=== PATIENT | female | born 1965 | race Caucasian/White ===

== ENCOUNTER 2023-10-25 13:28 | Emergency (ER) | payer MEDICARE, BC, SELFPAY ==
[2023-10-25 13:27] VITALS: BP 141/93; PULSE 106; RESP 21; TEMP 36.5; O2SAT 88; BMI 25.8
--- NOTE | 2023-10-25 13:48 | CT_ITS ---
FINAL REPORT TECHNIQUE: Thin section axial CT with contrast with multiplanar reconstruction CLINICAL HISTORY: trauma, critical injury suspected fall last night FINDINGS: Pulmonary vessels enhance in normal fashion without evidence of embolism. There is no evidence of aortic dissection or acute aortic injury. No pulmonary mass or infiltrate is present. There is mild dependent atelectasis. There is no evidence of pleural fluid collection. There is no pneumothorax. There is no significant pleural effusion. There is no significant pericardial effusion. No mediastinal or hilar adenopathy is present. No rib fracture is identified. IMPRESSION: No evidence of pulmonary embolism or aortic dissection. Reviewed, Interpreted and Dictated by Evert Gordillo MD Transcribed by Andreina Calderon Authenticated and [facility]
--- NOTE | 2023-10-25 13:48 | CT_ITS ---
FINAL REPORT TECHNIQUE: Axial images through the head was performed by computed tomography. Sagittal and coronal reformatted images were obtained and reviewed. This study was performed with techniques to keep radiation doses as low as reasonably achievable (ALARA). Individualized dose reduction techniques using automated exposure control or adjustment of mA and/or kV according to the patient's size were employed. CLINICAL HISTORY: trauma, critical injury suspected fall last night FINDINGS: No abnormal density is seen. Ventricles are normal. There is no hemorrhage. No mass effect is seen. Bone windows show no evidence of fracture. IMPRESSION: No acute findings Reviewed, Interpreted and Dictated by Evert Gordillo MD Transcribed by Andreina Calderon Authenticated and [facility]
--- NOTE | 2023-10-25 13:48 | CT_ITS ---
FINAL REPORT TECHNIQUE: Pre-and postcontrast images of the abdomen and pelvis were performed by computed tomography. Extensive 3-D reconstruction images were performed. A CTA was performed. This study was performed with techniques to keep radiation doses as low as reasonably achievable (ALARA). Individualized dose reduction techniques using automated exposure control or adjustment of mA and/or kV according to the patient''s size were employed. CLINICAL HISTORY: trauma, severe midline back pain fall last night FINDINGS: ABDOMEN/PELVIS: There is fatty infiltration of the liver. The remaining solid organs are intact. The gallbladder is normal. The appendix is normal. There is no evidence of free fluid. The uterus is normal for age. CTA: The abdominal aorta shows mild diffuse plaque disease. The renal and mesentery vessels are widely patent. The iliac vessels are widely patent. IMPRESSION: No acute findings. Reviewed, Interpreted and Dictated by Evert Gordillo MD Transcribed by Andreina Calderon Authenticated and [facility]
--- NOTE | 2023-10-25 13:48 | CT_ITS ---
FINAL REPORT TECHNIQUE: Axial images through the pelvis were performed by computed tomography. Reconstructed images were obtained and reviewed. This study was performed with techniques to keep radiation doses as low as reasonably achievable (ALARA). Individualized dose reduction techniques using automated exposure control or adjustment of mA and/or kV according to the patient's size were employed. CLINICAL HISTORY: trauma, critical injury suspected fall last night FINDINGS: There is no evidence of fracture or dislocation. There is a small bone island in the right sacrum and iliac bone. No obvious soft tissue hematoma is identified. IMPRESSION: No acute process Reviewed, Interpreted and Dictated by Evert Gordillo MD Transcribed by Andreina Calderon Authenticated and . [facility]
--- NOTE | 2023-10-25 13:48 | CT_ITS ---
FINAL REPORT TECHNIQUE: Thin section axial CT with sagittal reconstruction without contrast. This study was performed with techniques to keep radiation doses as low as reasonably achievable (ALARA). Individualized dose reduction techniques using automated exposure control or adjustment of mA and/or kV according to the patient's size were employed. CLINICAL HISTORY: trauma, critical injury suspected fall last night FINDINGS: No fracture is seen. Alignment is normal. There is moderate diffuse degenerative disc disease and facet arthropathy. IMPRESSION: Degenerative changes without fracture or malalignment. Reviewed, Interpreted and Dictated by Evert Gordillo MD Transcribed by Andreina Calderon Authenticated and [facility]
--- NOTE | 2023-10-25 13:50 | ED_ITS ---
Discharge Plan Disposition Patient Disposition: Home, Self-Care Prescriptions Prescriptions: New hydrocodone-acetaminophen 5-325 mg tablet 1 tab PO Q6H PRN (Reason: pain) 3 Days Qty: 12 0RF Referrals Follow up/Referrals: Damion Slaughter MD [Staff Physician] - See instructions Provider,MD Will [Primary Care Provider] - See instructions Activity Restrictions/Add. Instructions Additional Instructions/Restrictions: You have an anterior wedge compression fracture of your L1 vertebral body. This is less than 25% height loss and is focally where you are tender. I recommend that you follow-up closely with our pain specialist if you continue to have symptoms. Please return with any lower extremity weakness numbness or tingling loss of bowel or bladder continence or other concerns. Clinical Impressions Clinical Impression: Acute low back pain due to trauma, Fall, Transaminitis, Closed compression fracture of L1 vertebra Instructions Patient Instructions: DI for Low Back Pain Discharge ED Provider: Brain Flaherty General Adult HPI <Brain Flaherty MD - Last Filed: 10/25/23 14:46> General Chief complaint: Back Pain/Injury Stated complaint: Back pain Time Seen by Provider: 10/25/23 13:31 Mode of Arrival: EMS Source of Information: Patient and EMS Limitations: No Limitations Description of Symptoms (Recalled from ER Triage Doc. by RN): Pt c/o pain to mid-lower back after falling up the stairs around 0200. States she had a few drinks last night and remembers the fall History of Present Illness HPI narrative: Patient is a 50-year-old female with no pertinent past medical history who presents emergency department for evaluation of traumatic injury sustained in a fall. She states she had a few drinks last night when she was going up the stairs where she fell backwards approximately 2 steps onto her back resulting in significant pain. She was able to get herself to her bed, the surface that she fell and was dirt as she lives off the grid . Due to significant pain in her lower back she called 911 and presents here for continued evaluation. Denies anticoagulation or head pain. Last Tdap unknown. Related Data Previous Rx's Medication Instructions Recorded hydrocodone 5 mg-acetaminophen 325 1 tab PO Q6H PRN pain 3 days #12 10/25/23 mg tablet tabs Allergies Allergy/AdvReac Type Severity Reaction Status Date / Time tramadol AdvReac severe Verified 10/25/23 13:53 nausea with vomiting PFSH <Brain Flaherty MD - Last Filed: 10/25/23 14:46> PFSH Disclaimer: The information contained in this section may have been updated after the patient was seen, as this information can be updated by other users. Social History (Updated 10/25/23 @ 14:46 by Brain Flaherty MD) Smoking Status: Current every day smoker alcohol intake: former current occupational status: other Travel in the last 8 weeks: None <Brain Flaherty MD - Last Filed: 10/25/23 14:46> ROS Obtained: Yes Systems reviewed as appropriate & no additional complaints except as documented Physical Exam <Brain Flaherty MD - Last Filed: 10/25/23 14:46> General General appearance: alert and in no apparent distress Head Head exam: atraumatic and normocephalic Eye Eye exam: Present PERRL ENT ENT exam: Present mucous membranes moist Neck Neck exam: Present normal inspection Chest Chest inspection: Present normal inspection and symmetric chest wall rise Respiratory Respiratory exam: Present normal lung sounds bilaterally; Absent respiratory distress Cardiovascular Cardiovascular exam: Present regular rate and normal rhythm Abdominal Exam Abdominal exam: Present soft; Absent tenderness Extremities Exam Extremities exam: Present other (Abrasion left [place] that is hemostatic. 4-5 strength bilateral lower extremities producing severe pain in the lower back. Bounding dorsal pedal pulses bilaterally.) Back Exam Back exam: Present normal inspection and other (Severe tenderness lumbosacral spine) Neurological Exam Neurological exam: Present alert and CN II-XII intact Psychiatric Psychiatric exam: Present normal affect Skin Skin exam: Present warm and dry Medical Decision Making <Brain Flaherty MD - Last Filed: 10/25/23 14:46> Lei Inquiry Pt receiving controlled substance: No Vital Signs: 10/25/23 13:27 10/25/23 13:59 Temperature 97.7 F Temperature Source Oral Pulse Rate 109 H Pulse Rate [Right] 106 H Respiratory Rate 21 Blood Pressure 131/91 H Blood Pressure [Right Arm] 141/93 H Blood Pressure Mean [Right Arm] 109 Blood Pressure Source [Right Arm] Automatic Cuff 02 Sat by Pulse Oximetry 88 L 96 Oxygen Delivery Method Room Air Room Air Lab Data Lab Results 10/25/23 13:20: WBC 12.7 H, RBC 4.52, Hgb 16.4 H, Hct 49.5 H, MCV 109.6 H, MCH 36.3 H, MCHC 33.1, RDW 13.5, Plt Count 311, MPV 8.3, Neut % (Auto) 81.0 H, Lymph % (Auto) 13.8, Cata[place] % (Auto) 3.4, Eos % (Auto) 0.8, Baso % (Auto) 1.0, Neut # (Auto) 10.3 H, Lymph # (Auto) 1.7, [place]ata[place] # (Auto) 0.4, Eos # (Auto) 0.1, Baso # (Auto) 0.1 10/25/23 13:59: Sodium 139, Potassium 5.9 H, Chloride 109 H, Carbon Dioxide 21 L , Anion Gap 14.9, BUN 8, Creatinine 0.40 L, Estimated Creat Clear 198, Estimated GFR 164, Est GFR ( Amer) 198, Glucose 103 H, Calcium 8.0 L, Total Bilirubin 1.2, AST 127 H, ALT 86 H, Alkaline Phosphatase 78, Total Protein 8.2, Albumin 4.3, Globulin 3.9 H, Albumin/Globulin Ratio 1.1 10/25/23 14:48: Potassium 3.9 D 10/25/23 13:20 10/25/23 14:48 Orders (Tests/Meds): ED MEDICATIONS Discontinued Medications Generic Name Dose Route Start Last Admin Trade Name Freq PRN Reason Stop Dose Admin Acetaminophen 1,000 mg 10/25/23 13:48 10/25/23 14:02 Acetaminophen 1,000mg/100ml Vial IV 10/25/23 13:49 1,000 mg ONCE ONE Administration Iopamidol 100 ml 10/25/23 14:33 10/25/23 14:34 Iopamidol-370 (76%);100ml Bottle IV 10/25/23 14:34 100 ml ONCE ONE Administration Methocarbamol 1,000 mg 10/25/23 13:49 10/25/23 14:01 Methocarbamol 500mg Tablet PO 10/25/23 13:50 1,000 mg ONCE ONE Administration Morphine Sulfate 4 mg 10/25/23 13:48 10/25/23 14:02 Morphine 4mg/Ml Syringe IV 10/25/23 13:49 4 mg ONCE ONE Administration Sodium Chloride 10 ml 10/25/23 14:33 10/25/23 14:34 Sodium Chloride 0.9% 10ml Syr (Rad Only) IV 10/25/23 14:34 10 ml ONCE ONE Administration Sodium Chloride 50 ml 10/25/23 14:33 10/25/23 14:34 0.9 % Sodium Chloride 50 Ml Vial IV 10/25/23 14:34 50 ml ONCE ONE Administration ORDERS Category Date Time Status CT angio abdomen pelvis Stat Cat Scan 10/25/23 13:[address] angio chest - dissection Stat Cat Scan 10/25/23 13:[address] bony pelvis Stat Cat Scan 10/25/23 13:[address] cervical spine wo con Stat Cat Scan 10/25/23 13:[address] head/brain wo con Stat Cat Scan 10/25/23 13:48 Completed CBC w/Auto Diff [Complete Blood Count Auto Diff] Stat Lab 10/25/23 13:20 Completed CMP [Comprehensive Metabolic Panel] Stat Lab 10/25/23 13:59 Completed Potassium Stat Lab 10/25/23 14:48 Completed Medical Decision Narrative: In summary patient is a 58-year-old female past medical history described above who presents emergency department for evaluation of traumatic back pain. Patient is hemodynamically stable nontoxic-appearing arrival, appearing in severe pain. Differential includes vertebral fracture, intracranial hemorrhage, musculoskeletal strain, among others. Workup will be conducted with hematologic labs, CT trauma scans. Initial inventions include morphine, IV Tylenol, Robaxin. Initial workup reviewed by me, hematologic labs are nonactionable, there is hyperkalemia that is hemolyzed and will be repeated. No LING or critical electrolyte abnormality. Mildly elevated transaminases. CT imaging conducted and pending at time of transfer of care to the oncoming physician, Dr. Yun. <Radha Yun MD - Last Filed: 10/25/23 16:17> Vital Signs: 10/25/23 13:27 10/25/23 13:59 Temperature 97.7 F Temperature Source Oral Pulse Rate 109 H Pulse Rate [Right] 106 H Respiratory Rate 21 Blood Pressure 131/91 H Blood Pressure [Right Arm] 141/93 H Blood Pressure Mean [Right Arm] 109 Blood Pressure Source [Right Arm] Automatic Cuff 02 Sat by Pulse Oximetry 88 L 96 Oxygen Delivery Method Room Air Room Air Lab Data Lab results reviewed: Yes I reviewed the patient's lab results. Lab Results 10/25/23 13:20: WBC 12.7 H, RBC 4.52, Hgb 16.4 H, Hct 49.5 H, MCV 109.6 H, MCH 36.3 H, MCHC 33.1, RDW 13.5, Plt Count 311, MPV 8.3, Neut % (Auto) 81.0 H, Lymph % (Auto) 13.8, Cata[place] % (Auto) 3.4, Eos % (Auto) 0.8, Baso % (Auto) 1.0, Neut # (Auto) 10.3 H, Lymph # (Auto) 1.7, Cata[place] # (Auto) 0.4, Eos # (Auto) 0.1, Baso # (Auto) 0.1 10/25/23 13:59: Sodium 139, Potassium 5.9 H, Chloride 109 H, Carbon Dioxide 21 L , Anion Gap 14.9, BUN 8, Creatinine 0.40 L, Estimated Creat Clear 198, Estimated GFR 164, Est GFR ( Amer) 198, Glucose 103 H, Calcium 8.0 L, Total Bilirubin 1.2, AST 127 H, ALT 86 H, Alkaline Phosphatase 78, Total Protein 8.2, Albumin 4.3, Globulin 3.9 H, Albumin/Globulin Ratio 1.1 10/25/23 14:48: Potassium 3.9 D Orders (Tests/Meds): ED MEDICATIONS Discontinued Medications Generic Name Dose Route Start Last Admin Trade Name Freq PRN Reason Stop Dose Admin Acetaminophen 1,000 mg 10/25/23 13:48 10/25/23 14:02 Acetaminophen 1,000mg/100ml Vial IV 10/25/23 13:49 1,000 mg ONCE ONE Administration Iopamidol 100 ml 10/25/23 14:33 10/25/23 14:34 Iopamidol-370 (76%);100ml Bottle IV 10/25/23 14:34 100 ml ONCE ONE Administration Methocarbamol 1,000 mg 10/25/23 13:49 10/25/23 14:01 Methocarbamol 500mg Tablet PO 10/25/23 13:50 1,000 mg ONCE ONE Administration Morphine Sulfate 4 mg 10/25/23 13:48 10/25/23 14:02 Morphine 4mg/Ml Syringe IV 10/25/23 13:49 4 mg ONCE ONE Administration Sodium Chloride 10 ml 10/25/23 14:33 10/25/23 14:34 Sodium Chloride 0.9% 10ml Syr (Rad Only) IV 10/25/23 14:34 10 ml ONCE ONE Administration Sodium Chloride 50 ml 10/25/23 14:33 10/25/23 14:34 0.9 % Sodium Chloride 50 Ml Vial IV 10/25/23 14:34 50 ml ONCE ONE Administration ORDERS Category Date Time Status CT angio abdomen pelvis Stat Cat Scan 10/25/23 13:[address] angio chest - dissection Stat Cat Scan 10/25/23 13:[address] bony pelvis Stat Cat Scan 10/25/23 13:[address] cervical spine wo con Stat Cat Scan 10/25/23 13:[address] head/brain wo con Stat Cat Scan 10/25/23 13:48 Completed CBC w/Auto Diff [Complete Blood Count Auto Diff] Stat Lab 10/25/23 13:20 Completed CMP [Comprehensive Metabolic Panel] Stat Lab 10/25/23 13:59 Completed Potassium Stat Lab 10/25/23 14:48 Completed Medical Decision Narrative: In summary patient is a 58-year-old female past medical history described above who presents emergency department for evaluation of traumatic back pain. Patient is hemodynamically stable nontoxic-appearing arrival, appearing in severe pain. Differential includes vertebral fracture, intracranial hemorrhage, musculoskeletal strain, among others. Workup will be conducted with hematologic labs, CT trauma scans. Initial inventions include morphine, IV Tylenol, Robaxin. Initial workup reviewed by me, hematologic labs are nonactionable, there is hyperkalemia that is hemolyzed and will be repeated. No LING or critical electrolyte abnormality. Mildly elevated transaminases. CT imaging conducted and pending at time of transfer of care to the oncoming physician, Dr. Yun. Reassessment this is Dr. Yun took over from Dr. Flaherty at [address] imaging and on my personal interpretation there is an L1 anterior wedge compression fracture less than 25% this is focally where she is tender. The remainder of her scan does not show any acute traumatic abnormality. Radiology reads did not demonstrate any specific abnormalities however I discussed this with the patient that if she looks at the reads that there is clearly a L1 compression fracture on my personal interpretation. She will follow-up with Dr. Slaughter. She has no acute neurologic symptoms at the moment no lower extremity weakness no bowel or bladder incontinence saddle anesthesia etc. precautions have been emphasized pain medicine prescribed patient was discharged in a stable condition. Critical Care <Brain Flaherty MD - Last Filed: 10/25/23 14:46> Critical Care Time Critical Care Time: No <Radha Yun MD - Last Filed: 10/25/23 16:17> Critical Care Time Critical Care Time: Yes Attestation: On 10/25/23, the high probability of a clinically significant, sudden or life threatening deterioration of the following system(s) required my full and direct attention, intervention and personal management. The time I documented below is in addition to time spent performing reported procedures but includes the following listed in this critical care notation. Total Time Total Critical Care Time: 35
--- NOTE | 2023-10-25 13:54 | PC.NURSE ---
Called radiology to notify of trauma scans and MD is wanting to forgo waiting on labs.
--- NOTE | 2023-10-25 13:55 | PC.NURSE ---
Lab called stating the green top blood tube was hemolyzed, will attempt to collect it again.
[2023-10-25 13:56] LABS: Basophils # 0.1 K/mm3 (0-0.2); Eosinophils # 0.1 K/mm3 (0.0-0.4); Eosinophils % 0.8 % (0.1-12.0); Hematocrit 49.5 % (37.0-47.0); Hemoglobin 16.4 g/dL (12.2-16.2); Lymphocytes # 1.7 K/mm3 (0.7-4.5); Lymphocytes % 13.8 % (10-50); Mean Corpuscular HGB Conc 33.1 g/dL (31.8-35.4); Mean Corpuscular Hemoglobin 36.3 pg (27.0-31.2); Mean Corpuscular Volume 109.6 fl (81-99); Mean Platelet Volume 8.3 fl (7.4-10.4); Monocytes # 0.4 K/mm3 (0.1-1.0); Monocytes % 3.4 % (1.7-9.3); Neutrophils # 10.3 K/mm3 (1.8-7.8); Platelet Count 311 K/mm3 (142-424); Red Blood Count 4.52 M/mm3 (4.20-5.40); Red Cell Distribution Width 13.5 % (11.5-17.5); White Blood Count 12.7 K/mm3 (4.8-10.8)
[2023-10-25 13:59] VITALS: BP 131/91; PULSE 109; O2SAT 96
[2023-10-25] MEDS: METHOCARBAMOL 500MG TABLET 1000 MG PO (14:01)
[2023-10-25] MEDS: MORPHINE 4MG/ML SYRINGE 4 MG IV ×2 (14:02→17:17)
[2023-10-25] MEDS: ACETAMINOPHEN 1,000MG/100ML VIAL 1000 MG IV (14:02)
[2023-10-25 14:10] LABS: Chloride 109 mmol/L (98-107); Sodium 139 mmol/L (136-145)
[2023-10-25 14:12] LABS: Blood Urea Nitrogen 8 mg/dl (7-17); Creatinine Clearance Estimated 198 mL/min (50-200); Estimated Glomerular Filt Rate 164 ml/min (>60); GFR (African American) 198 ML/MIN (>60); Potassium 5.9 mmoL/L (3.5-5.1)
[2023-10-25 14:13] LABS: Alanine Aminotransferase 86 U/L (12-78); Albumin Level 4.3 g/dl (3.5-5.0); Albumin/Globulin Ratio 1.1 (1.1-1.8); Alkaline Phosphatase 78 U/L (38-126); Anion Gap 14.9 mEq/L (5-15); Aspartate Amino Transferase 127 U/L (14-36); Bilirubin,Total 1.2 mg/dl (0.2-1.3); Carbon Dioxide 21 mmol/L (22.0-30.0); Globulin 3.9 g/dL (1.3-3.2); Glucose 103 mg/dl (74-100); Total Protein,Serum 8.2 g/dl (6.3-8.2)
--- NOTE | 2023-10-25 14:21 | PC.NURSE ---
Pt gone to RAD via stretcher
[2023-10-25] MEDS: SODIUM CHLORIDE 0.9% 10ML SYR (RAD ONLY) 10 ML IV (14:34)
[2023-10-25] MEDS: 0.9 % SODIUM CHLORIDE 50 ML VIAL IV (14:34)
[2023-10-25] MEDS: IOPAMIDOL-370 (76%);100ML BOTTLE 100 ML IV (14:34)
[2023-10-25 15:05] LABS: Potassium 3.9 mmoL/L (3.5-5.1)
--- NOTE | 2023-10-25 16:15 | PC.NURSE ---
2nd set of blood cultures obtained, blue band placed to pt's right wrist.
--- NOTE | 2023-10-25 16:20 | PC.NURSE ---
pt ambulated to bathroom with walker with staff standby assistance, tolerated well
--- NOTE | 2023-10-25 17:01 | PC.NURSE ---
Attempted to d/c pt and she reports her will not be here until 7pm and she can't sit down comfortably to be d/c to lobby. States she is still nauseated and in pain. She also notes that she does not have a way to obtain her pain medication prescription today. Let MD know this and he gave verbal order for Morphine 4 mg IVP & Zofran 4 mg IVP. As well as Oxy IR 5mg PO at d/c.
[2023-10-25] MEDS: ONDANSETRON 4MG/2ML VIAL 4 MG IV (17:17)
[2023-10-25 18:22] VITALS: BP 105/75; PULSE 78; RESP 16; TEMP 36.7; O2SAT 98
--- NOTE | 2023-10-25 18:47 | PC.NURSE ---
Pt resting in bed. No needs voiced at this time. Call light within reach.
--- NOTE | 2023-10-25 19:37 | PC.NURSE ---
Patient states her is in route, he had a delay and will be here shortly. IV's removed, VS updated, pt provided drink.
[2023-10-25 19:44] VITALS: BP 151/95; PULSE 95; RESP 20; O2SAT 95
[2023-10-25] MEDS: HYDROCODONE/APAP 5/325 MG TABLET 1 TAB PO (20:10)
[2023-10-25] MEDS: ONDANSETRON 4MG ODT 4 MG SL (20:10)
--- NOTE | 2023-10-25 20:13 | PC.NURSE ---
Pt. c/o headache and nausea. Medicated for heaache and nausea.
== END 2023-10-25 20:45 | disposition home or self-care (01) ==
PROVIDERS: Emergency Medicine; Emergency Provider Student in an Organized Health Care Education/Training Program
DX: S32.010A Wedge compression fracture of first lumbar vertebra, initial encounter for closed fracture (principal); R74.01 Elevation of levels of liver transaminase levels; M54.50 Low back pain, unspecified; F17.210 Nicotine dependence, cigarettes, uncomplicated; W10.8XXA Fall (on) (from) other stairs and steps, initial encounter
CPT/HCPCS: 70450; 71275; 72125; 72192; 74174; 80053; 84132; 85025; 96374; 96375; 96376; 99285; J0131; J2270; J2405; Q9967

== ENCOUNTER 2023-11-03 08:35 | Outpatient (POV) | payer MEDICARE, BC, SELFPAY ==
--- NOTE | 2023-11-03 09:13 | A.OFFVIS_ITS ---
HPI Data of Consult Patient: new to practice Consult date: 11/03/23 Requesting Physician: Jamaica Barksdale APRN Consult Narrative Reason for consult: Low back pain, hip pain, right leg numbness History of present illness: Ms. Jara is a 58 year old female who presents today as a new patient. She is a ER referral. Today she rates her pain a 9 out of 10. Patient states the pain is throughout her low back with radiating symptoms to her hips and numbness down her right leg. Patient states this is all related to the fall that she had on the . Patient states that she ended up landing in and around her back and that she has had issues since. Patient states that she did go to the ER and they did do imaging where she was told that she had a compression fracture of L1. Patient states that they did give her IV morphine and other medications including a muscle relaxer and that it did not help however she is Dr. Paige. Patient describes the pain as a severe sharp shooting pain that does interfere with her ability perform activities of daily living such as cooking and cleaning. Patient states that the pain is constant. Patient was given [place] in the ER. Her Lei has been reviewed and is appropriate. CC: Jamaica Barksdale APRN [facility] Disclaimer: The information contained in this section may have been updated after the patient was seen, as this information can be updated by other users. Medical History (Updated 11/03/23 @ 10:46 by Jamaica Barksdale APRN) Panic attacks Post traumatic stress disorder (PTSD) Depression Anxiety Surgical History (Updated 11/03/23 @ 10:22 by Carlota Mendez RN) History of H/O repair of rotator cuff Family History (Updated 11/03/23 @ 10:23 by Carlota Mendez RN) Other Unknown family medical history Social History (Updated 10/25/23 @ 14:46 by Brain Flaherty MD) Smoking Status: Current every day smoker alcohol intake: former current occupational status: other Travel in the last 8 weeks: None Review of Systems Review of Systems Review of systems:: pertinent systems reviewed and negative unless documented below Review of systems (narrative): Review of Systems: General: No recent weight changes, no fever, no sleep disturbances Respiratory: No cough, no shortness of air, no recurring pulmonary infections Cardiovascular/peripheral vascular: No chest pain, no palpitations, no edema, no shortness of breath Gastrointestinal: No new onset incontinence, normal bowel movements reported Genitourinary: No new onset incontinence Musculoskeletal: Low back pain, hip pain, right leg numbness Psychiatric: [Normal mood/affect] Neurological: [Denies weakness in extremities], [denies balance issues] Meds Home Medications and Allergies Home Medications Medication Instructions Recorded Confirmed Type baclofen 5 mg tablet 5 mg PO TID #42 tabs 11/03/23 Rx hydrocodone 5 mg-acetaminophen 325 1 tab PO BID 3 days #60 tabs 11/03/23 Rx mg tablet lorazepam 1 mg tablet (Ativan) 0 mg PO BID PRN Anxiety 11/03/23 11/03/23 History prednisone 20 mg tablet 20 mg PO BID #14 tabs 11/03/23 Rx quetiapine 25 mg tablet (Seroquel) 0 mg PO HS sleep 11/03/23 11/03/23 History New Prescriptions to Start Prescriptions: baclofen Barksdale,Jamaica A hydrocodone-acetaminophen Barksdale,Jamaica A prednisone Barksdale,Jama[place] A Allergies Allergy/AdvReac Type Severity Reaction Status Date / Time acetaminophen [From Vicodin] AdvReac Verified 11/03/23 10:18 hydrocodone [From Vicodin] AdvReac Verified 11/03/23 10:18 tramadol AdvReac severe Verified 10/25/23 13:53 nausea with vomiting Objective Narrative: Physical Exam: General: Alert and oriented x3, no acute distress, pleasant and cooperative Lungs: Respirations even and unlabored, symmetrical chest expansion Eyes: PERRL Musculoskeletal: Flexion and extension of lumbar [spine] somewhat guarded secondary to pain, [antalgic gait noted] positive right leg raise Neurological: Speech clear, no gross sensory deficit Additional findings Additional findings: TECHNIQUE: Thin section axial CT with sagittal reconstruction without contrast. This study was performed with techniques to keep radiation doses as low as reasonably achievable (ALARA). Individualized dose reduction techniques using automated exposure control or adjustment of mA and/or kV according to the patient's size were employed. CLINICAL HISTORY: trauma, critical injury suspected fall last night FINDINGS: No fracture is seen. Alignment is normal. There is moderate diffuse degenerative disc disease and facet arthropathy. IMPRESSION: Degenerative changes without fracture or malalignment. Reviewed, Interpreted and Dictated by Evert Gordillo MD Transcribed by Andreina Calderon Authenticated and [facility] Assessment and Plan *Assessment and plan (1) Compression fracture: Status: Acute Category: Medical (2) Low back pain: Status: Acute Qualifiers: Chronicity: acute Back pain laterality: right Sciatica presence: without sciatica Qualified Code(s): M54.50 - Low back pain, unspecified Category: Medical Code(s): M54.50 - Low back pain, unspecified (3) Lumbar radiculopathy: Status: Acute Category: Medical Code(s): M54.16 - Radiculopathy, lumbar region (4) Right leg pain: Status: Acute Category: Medical Code(s): M79.604 - Pain in right leg (5) Hip pain: Status: Acute Qualifiers: Laterality: right Qualified Code(s): M25.551 - Pain in right hip Category: Medical Code(s): M25.559 - Pain in unspecified hip Plan Patient is experiencing significant pain throughout her low back with radiating pain to her hip and her right leg. Patient did have limited range of motion of her lumbar spine and tenderness to palpate. I have discussed with the patient that they did not do any lumbar imaging when she was in the ER and I will order x-ray with MRI without contrast to follow of her lumbar spine to confirm the compression fracture. Patient's abdominal CT did show on the actual imaging of the height loss of the L1 vertebral body portion however was not documented in the written report. I did discuss with the patient that she may be a beneficial candidate of a kyphoplasty however we will have to confirm that there is edema. I will also order the patient a DEXA scan to see if she does have osteoporosis. I will send in a 1 month supply of [place] 5 mg twice a day along with a 2-week supply of baclofen 5 mg 3 times daily and prednisone 20 mg twice daily. Patient was ordered a back brace to help as support and stabilization around her current L1 compression fracture. This was applied during today's visit. Patient will return to clinic after her imaging for evaluation and follow-up. We did give her a kyphoplasty brochure to read up on in the meantime. Patient is agreeable to this plan of care. Patient did have elevated blood pressure during today's visit and was counseled to follow-up with her primary care. Patient has been instructed to contact the clinic with any concerns before the next appointment. Dr. Slaughter has reviewed this note and agrees with this plan of care. This note was dictated using voice recognition software and make contain errors or omissions.
--- NOTE | 2023-11-03 09:55 | XR_ITS ---
FINAL REPORT TECHNIQUE: 5 views CLINICAL HISTORY: LOWER BACK PAIN COMPARISON: CT of the chest abdomen and pelvis 10/25/2023 FINDINGS: There is a moderate L1 compression fracture, that is slightly worse than that noted on the prior CT of 10/25/2023. There is no malalignment. Mild diffuse degenerative disc disease is present. IMPRESSION: Moderate L1 compression fracture, slightly worse than that noted on the prior CT of 10/25/2023. Reviewed, Interpreted and Dictated by Evert Gordillo MD Transcribed by Bessy Ayala Authenticated and . [facility]
[2023-11-03 11:16] VITALS: BP 165/105; PULSE 65; RESP 18; O2SAT 100; BMI 25.1
== END 2023-11-03 23:59 | disposition home or self-care (01) ==
PROVIDERS: Visit Provider Nurse Practitioner Family
DX: M54.50 Low back pain, unspecified (principal); M54.16 Radiculopathy, lumbar region; M79.604 Pain in right leg; M25.551 Pain in right hip; S32.019A Unspecified fracture of first lumbar vertebra, initial encounter for closed fracture
CPT/HCPCS: 72110; 99202; G0463

== ENCOUNTER 2023-11-18 17:20 | Outpatient (CLI) | payer MEDICARE, BC, SELFPAY ==
--- NOTE | 2023-11-18 17:23 | MR_ITS ---
FINAL REPORT TECHNIQUE: Multiplanar and multisequence imaging of the lumbar spine was obtained without contrast. CLINICAL HISTORY: LBP FINDINGS: There is normal alignment of the lumbar vertebral bodies. The spinal cord ends at the level of T12. There is normal signal intensity within the substance of the distal spinal cord. There is an L1 fracture with bone marrow edema and 50% loss of vertebral body height anteriorly. There is retropulsion of the fracture fragments resulting in 25% central canal stenosis. Remaining vertebral body heights are preserved. No acute paraspinal abnormality is identified. T12-L1: Mild to moderate canal stenosis related to fracture. No significant neuroforaminal narrowing. L1-2: There is no focal disc herniation, central canal stenosis or neuroforaminal narrowing. L2-3: Annular disc bulge with degenerative endplate changes and facet osteoarthropathy. There is no significant canal stenosis or right neuroforaminal narrowing. There is mild left neuroforaminal narrowing. L3-4: Annular disc bulge with degenerative endplate changes and facet osteoarthropathy. There is mild central canal stenosis and mild bilateral neuroforaminal narrowing. L4-5: Disc protrusion superimposed on annular disc bulge. There is mild central canal stenosis and mild left neuroforaminal narrowing. L5-S1: Annular disc bulge without significant central canal stenosis or neuroforaminal narrowing. IMPRESSION: L1 fracture with 50% loss of vertebral body height and canal stenosis related to retropulsion of bony fragments. Mild multilevel degenerative disease as above. Reviewed, Interpreted and Dictated by Meghan Maldonado MD Transcribed by Rosalind Guy Authenticated and [facility]
== END 2023-11-18 23:59 | disposition home or self-care (01) ==
LOC: RAD 17:21
PROVIDERS: Visit Provider Nurse Practitioner Family
DX: M54.17 Radiculopathy, lumbosacral region (principal); M54.50 Low back pain, unspecified
CPT/HCPCS: 72148

== ENCOUNTER 2023-12-01 08:37 | Outpatient (CLI) | payer MEDICARE, BC, SELFPAY ==
--- NOTE | 2023-12-01 08:42 | XR_ITS ---
FINAL REPORT TECHNIQUE: Bone densitometry calculations of the lumbar spine and left hip were obtained. CLINICAL HISTORY: SCREENING, FALL C/O BACK PAIN COMPARISON: None FINDINGS: Using L1-4, the bone mineral density of the spine is 1.058 g/cm2, corresponding to T-score of 0.1. Using the left hip, the bone mineral density of the femoral neck is 0.815 g/cm2, corresponding to a T-score of -0.3. NOTE: T-score: Standard deviation compared with peak bone mass of young adult mean. *Following the recommendations of the International Society of Bone densitometry, classification of hip BMD is based on the lower of two T-scores; total hip or femoral neck. IMPRESSION: Normal bone mineral density of the lumbar spine and hip. Reviewed, Interpreted and Dictated by Evert Gordillo MD Transcribed by Bessy Ayala Authenticated and [facility]
== END 2023-12-01 23:59 | disposition home or self-care (01) ==
LOC: RAD 08:38
PROVIDERS: PCP Nurse Practitioner Family; Visit Provider Nurse Practitioner Family
DX: M81.0 Age-related osteoporosis without current pathological fracture (principal)
CPT/HCPCS: 77080

== ENCOUNTER 2023-12-01 13:09 | Outpatient (POV) | payer MEDICARE, BC, SELFPAY ==
[2023-12-01 13:15] VITALS: BP 156/99; PULSE 112; RESP 18; O2SAT 98; BMI 24.3
[2023-12-01 13:20] VITALS: BP 147/89
--- NOTE | 2023-12-01 13:52 | A.OFFVIS_ITS ---
[facility] Disclaimer: The information contained in this section may have been updated after the patient was seen, as this information can be updated by other users. Medical History Panic attacks Post traumatic stress disorder (PTSD) Depression Anxiety Surgical History History of H/O repair of rotator cuff Family History Other Unknown family medical history Social History Smoking Status: Current every day smoker alcohol intake: current current occupational status: other Travel in the last 8 weeks: None PM Subjective & Objective Subjective Subjective:: Patient is a pleasant 58-year-old female who presents today for follow-up of MRI. Today she rates her pain a 9 out of 10. Patient denies any new injury or trauma. She does states she is still having extreme pain throughout her low back that does radiate around with numbness and tingling into her ribs and abdomen as well as going down into her legs. Patient was diagnosed with a L1 compression fracture that was picked up on an abdominal CT. Patient ultimately had this injury related to a fall that she had on October 23. Patient states ever since then she has been in severe pain with sharp shooting pains and numbness and tingling. Patient was prescribed [place] 5 mg twice a day along with baclofen 5 mg 3 times a day. She states that this did help at least take the edge off. She is also using her back brace that was ordered and applied from an outside provider. Patient states that she cannot do any activities of daily living such as cooking or cleaning or even simple ambulation with out sharp shooting pains. At our last visit we did discuss the possibility of a kyphoplasty and she does state today that she would like to proceed forward with this plan of care. Her Lei has been reviewed and is appropriate. Review of Systems: General: No recent weight changes, no fever, no sleep disturbances Respiratory: No cough, no shortness of air, no recurring pulmonary infections Cardiovascular/peripheral vascular: No chest pain, no palpitations, no edema, no shortness of breath Gastrointestinal: No new onset incontinence, normal bowel movements reported Genitourinary: No new onset incontinence Musculoskeletal: Low back pain, abdominal pain, leg pain Psychiatric: [Normal mood/affect] Neurological: [Denies weakness in extremities], [denies balance issues] Pain at rest (0-10 scale): 9 Objective Objective:: Physical Exam: General: Alert and oriented x3, no acute distress, pleasant and cooperative Lungs: Respirations even and unlabored, symmetrical chest expansion Eyes: PERRL Musculoskeletal: Flexion and extension of lumbar [spine] somewhat guarded secondary to pain, [antalgic gait noted] extreme point tenderness all along the T12 region going down into her upper lumbar spine Neurological: Speech clear, no gross sensory deficit FINDINGS: There is normal alignment of the lumbar vertebral bodies. The spinal cord ends at the level of T12. There is normal signal intensity within the substance of the distal spinal cord. There is an L1 fracture with bone marrow edema and 50% loss of vertebral body height anteriorly. There is retropulsion of the fracture fragments resulting in 25% central canal stenosis. Remaining vertebral body heights are preserved. No acute paraspinal abnormality is identified. T12-L1: Mild to moderate canal stenosis related to fracture. No significant neuroforaminal narrowing. L1-2: There is no focal disc herniation, central canal stenosis or neuroforaminal narrowing. L2-3: Annular disc bulge with degenerative endplate changes and facet osteoarthropathy. There is no significant canal stenosis or right neuroforaminal narrowing. There is mild left neuroforaminal narrowing. L3-4: Annular disc bulge with degenerative endplate changes and facet osteoarthropathy. There is mild central canal stenosis and mild bilateral neuroforaminal narrowing. L4-5: Disc protrusion superimposed on annular disc bulge. There is mild central canal stenosis and mild left neuroforaminal narrowing. L5-S1: Annular disc bulge without significant central canal stenosis or neuroforaminal narrowing. IMPRESSION: L1 fracture with 50% loss of vertebral body height and canal stenosis related to retropulsion of bony fragments. Mild multilevel degenerative disease as above. Reviewed, Interpreted and Dictated by Meghan Maldonado MD Transcribed by Rosalind Guy Authenticated and [facility] Has patient had previous pain injection?: No Conservative treatment options previously tried: NSAIDS Length of treatment: Longer than 5 weeks, Home exercise plan Length of treatment: Longer than 5 weeks and Prescription medications Length of treatment: Longer than 5 weeks Meds Home Medications and Allergies Home Medications ?Medication ?Instructions ?Recorded ?Confirmed ?Type baclofen 5 mg tablet 5 mg PO TID #42 tabs 11/03/23 12/01/23 Rx hydrocodone 5 mg-acetaminophen 325 1 tab PO BID 3 days #60 tabs 11/03/23 12/01/23 Rx mg tablet lorazepam 1 mg tablet (Ativan) 0 mg PO BID PRN Anxiety 11/03/23 12/01/23 History quetiapine 25 mg tablet (Seroquel) 0 mg PO HS sleep 11/03/23 12/01/23 History New Prescriptions to Start Prescriptions: Allergies Allergy/AdvReac Type Severity Reaction Status Date / Time acetaminophen [From Vicodin] AdvReac Verified 11/03/23 10:18 hydrocodone [From Vicodin] AdvReac Verified 11/03/23 10:18 tramadol AdvReac severe Verified 10/25/23 13:53 nausea with vomiting Assessment and Plan *Assessment and plan (1) Compression fracture: Status: Acute Category: Medical (2) Low back pain: Status: Acute Qualifiers: Chronicity: acute Back pain laterality: right Sciatica presence: without sciatica Qualified Code(s): M54.50 - Low back pain, unspecified Category: Medical Code(s): M54.50 - Low back pain, unspecified (3) Lumbar radiculopathy: Status: Acute Category: Medical Code(s): M54.16 - Radiculopathy, lumbar region Plan Patient continues to experience significant pain throughout her low back with radiating numbness and tingling going towards her abdomen and down into her legs. Patient did have limited range of motion of her lumbar spine with extreme point tenderness around the site of her compression fracture. Patient's MRI did show 50% height loss with edema still present. I have reviewed over the risk and benefits of the kyphoplasty procedure to the patient and her spouse and they would like to proceed forward with this plan of care. Patient is not on any blood thinners. I will also refill the patient's [place] and change her baclofen to 10 mg 3 times daily and provide a 1 month supply of these medications. Patient was counseled that we will try and get her on as soon as possible for the operating room schedule due to her severity of pain. Patient has continued to try conservative measures with minimal relief. Patient is unable to tolerate current physical therapy due to the compression fracture that has 50% height loss. We will submit to insurance for the L1 kyphoplasty procedure under fluoroscopy. Patient does not currently have a primary care. Will refer to Dr. Palacios's office to establish care Patient has been instructed to contact the clinic with any concerns before the next appointment. Dr. Slaughter has reviewed this note and agrees with this plan of care. This note was dictated using voice recognition software and make contain errors or omissions. All injections are used with Lidocaine or Bupivacaine and Depo Medrol.
== END 2023-12-01 23:59 | disposition home or self-care (01) ==
PROVIDERS: Visit Provider Nurse Practitioner Family
DX: M54.50 Low back pain, unspecified (principal); M54.16 Radiculopathy, lumbar region; M81.0 Age-related osteoporosis without current pathological fracture
CPT/HCPCS: 77080; 99212; G0463

== ENCOUNTER 2024-01-23 14:38 | Outpatient (POV) | payer MEDICARE, BC, SELFPAY ==
[2024-01-23 16:26] VITALS: BP 157/94; PULSE 107; RESP 16; O2SAT 175; BMI 25.1
--- NOTE | 2024-01-23 16:33 | A.OFFVIS_ITS ---
[facility] Disclaimer: The information contained in this section may have been updated after the patient was seen, as this information can be updated by other users. Medical History (Updated 12/06/23 @ 12:15 by Christopher Palacios MD) Tobacco use Hypertension Acute low back pain due to trauma Fall Right leg pain Hip pain Panic attacks Post traumatic stress disorder (PTSD) Depression Anxiety Surgical History History of H/O repair of rotator cuff Family History Other Unknown family medical history Social History Smoking Status: Current every day smoker alcohol intake: current current occupational status: other Travel in the last 8 weeks: None PM Subjective & Objective Subjective Subjective:: Patient is a pleasant 58-year-old female who presents today for medication refill and follow-up. Today she rates her pain a 7 out of 10. She denies any new trauma or injury. She does state that she still has the chronic low back pain related to her compression fracture. Patient was denied a kyphoplasty by her insurance. Patient is currently managed with [place] 5 mg twice a day and baclofen 10 mg 3 times a day. She denies any side effects from these medications. She does state that they do help. Her Lei has been reviewed and is appropriate. Review of Systems: General: No recent weight changes, no fever, no sleep disturbances Respiratory: No cough, no shortness of air, no recurring pulmonary infections Cardiovascular/peripheral vascular: No chest pain, no palpitations, no edema, no shortness of breath Gastrointestinal: No new onset incontinence, normal bowel movements reported Genitourinary: No new onset incontinence Musculoskeletal: Low back pain Psychiatric: [Normal mood/affect] Neurological: [Denies weakness in extremities], [denies balance issues] Pain at rest (0-10 scale): 7 Objective Objective:: Physical Exam: General: Alert and oriented x3, no acute distress, pleasant and cooperative Lungs: Respirations even and unlabored, symmetrical chest expansion Eyes: PERRL Musculoskeletal: Flexion and extension of lumbar [spine] somewhat guarded secondary to pain, [antalgic gait noted] Neurological: Speech clear, no gross sensory deficit Has patient had previous pain injection?: No Conservative treatment options previously tried: Prescription medications Length of treatment: Longer than 6 weeks Meds Home Medications and Allergies Home Medications ?Medication ?Instructions ?Recorded ?Confirmed ?Type baclofen 5 mg tablet 5 mg PO TID #42 tabs 11/03/23 01/23/24 Rx lorazepam 1 mg tablet (Ativan) 0 mg PO BID PRN Anxiety 11/03/23 01/23/24 History quetiapine 25 mg tablet (Seroquel) 0 mg PO HS sleep 11/03/23 01/23/24 History baclofen 10 mg tablet 10 mg PO TID #90 tabs 12/01/23 01/23/24 Rx hydrocodone 5 mg-acetaminophen 325 1 tab PO BID 3 days #60 tabs 12/01/23 01/23/24 Rx mg tablet lorazepam 1 mg tablet (Ativan) 1 mg PO BID #60 tabs 12/06/23 01/23/24 Rx quetiapine 100 mg tablet 100 mg PO HS #30 tabs 12/06/23 01/23/24 Rx New Prescriptions to Start Prescriptions: Allergies Allergy/AdvReac Type Severity Reaction Status Date / Time acetaminophen [From Vicodin] AdvReac Verified 12/06/23 11:13 hydrocodone [From Vicodin] AdvReac Verified 12/06/23 11:13 tramadol AdvReac severe Verified 12/06/23 11:13 nausea with vomiting Assessment and Plan *Assessment and plan (1) Lumbar radiculopathy: Status: Acute Category: Medical Code(s): M54.16 - Radiculopathy, lumbar region (2) Compression fracture: Status: Acute Category: Medical (3) Low back pain: Status: Acute Qualifiers: Chronicity: acute Back pain laterality: right Sciatica presence: without sciatica Qualified Code(s): M54.50 - Low back pain, unspecified Category: Medical Code(s): M54.50 - Low back pain, unspecified Plan We will refill the patient's baclofen and [place] and provide a 1 month supply of this medication. Patient will return to clinic in 1 month for reevaluation of symptoms and plan of care. Risks and benefits of the medication have been explained in detail to the devante ent. The patient does understand the risk of dependence on the medication when given over a prolonged period. Patient has been advised of risks of oversedation with the prescribed medication. Narcan has been offered to the paitent in the event of oversedation. Patient has been advised that a family member should also be educated regarding administration of Narcan. The patient has been advised to consult with his/her primary care provider and pharmacist regarding drug-drug interaction of medications currently prescribed. Patient has been prescribed a controlled substance after being counseled on the medication, medication safety, and possible side effects. Opioid contract was reviewed and signed by the patient, and that they have agreed to all of the terms set forth by our compliance program. Patient has been instructed to contact the clinic with any concerns before the next appointment. Dr. Slaughter has reviewed this note and agrees with this plan of care. This note was dictated using voice recognition software and make contain errors or omissions.
== END 2024-01-23 23:59 | disposition home or self-care (01) ==
PROVIDERS: PCP Family Medicine; Visit Provider Nurse Practitioner Family
DX: M54.16 Radiculopathy, lumbar region (principal); M54.50 Low back pain, unspecified; S32.010D Wedge compression fracture of first lumbar vertebra, subsequent encounter for fracture with routine healing; F17.210 Nicotine dependence, cigarettes, uncomplicated
CPT/HCPCS: 99212; G0463

== ENCOUNTER 2024-02-15 14:19 | Emergency (ER) | payer MEDICARE, BC, SELFPAY ==
[2024-02-15 14:54] VITALS: BP 169/98; PULSE 104; RESP 18; TEMP 37.4; O2SAT 96; BMI 25.9
--- NOTE | 2024-02-15 15:02 | EXP.UTC ---
Discharge Plan Disposition Patient Disposition: Home, Self-Care Condition: Good Prescriptions Prescriptions: New amoxicillin-pot clavulanate 875-125 mg Tablet 1 tab PO Q12H Qty: 20 0RF No Action quetiapine [Seroquel] 25 mg Tablet 0 mg PO HS Rx Instructions: states takes 0.5-1 tab at bedtime pt states unknown dosage of medication lorazepam [Ativan] 1 mg Tablet 0 mg PO BID PRN (Reason: Anxiety) Rx Instructions: unknown dosage of medication hydrocodone-acetaminophen 5-325 mg tablet 1 tab PO BID 3 Days Qty: 60 0RF baclofen 10 mg tablet 10 mg PO TID Qty: 90 0RF Referrals Follow up/Referrals: Christopher Palacios MD [Primary Care Provider] - See instructions Activity Restrictions/Add. Instructions Additional Instructions/Restrictions: Drink plenty of fluids. Take tylenol or ibuprofen (if you can take either of these) for pain or fever. Take the medications as directed. Follow up with your regular doctor. Follow up with your dentist. GO TO THE ER FOR ANY WORSENING SYMPTOMS Clinical Impressions Clinical Impression: Dental abscess, Jaw pain Instructions Patient Instructions: Tooth Abscess, DI for Tooth Abscess, Amoxicillin and Clavulanic Acid Print Language Print Language: Mexican Discharge ED Provider: Woo Corrales [facility] General Stated complaint: Swelling and redness to R side of face Mode of Arrival: Ambulatory Source of Information: Patient Time Seen by Provider: 02/15/24 15:02 Description of Symptoms (Recalled from Triage Doc. by RN): RIGHT SIDE SWOLLEN FACE/JAW, HURTING INTO SINUS AREA, NO VISIABLE OPEN SORES IN MOUTH HEENT Symptoms (Recalled from RN notes): Yes Resp Symptoms (Recalled from RN notes): No Skin Symptoms (Recalled from RN notes): Yes MS Symptoms (Recalled from RN notes): Yes Functional Status (Recalled from RN notes): WNL History of Present Illness Provider Complaint: She states that since she woke up this morning she has had swelling and tenderness of an area over her right jaw. She states that she has had multiple decayed teeth that could be abscessing. She denies any fever at home. Related Data Home Medications ?Medication ?Instructions ?Recorded ?Confirmed lorazepam 1 mg tablet (Ativan) 0 mg PO BID PRN Anxiety 11/03/23 02/15/24 quetiapine 25 mg tablet (Seroquel) 0 mg PO HS sleep 11/03/23 02/15/24 Previous Rx's ?Medication ?Instructions ?Recorded baclofen 10 mg tablet 10 mg PO TID #90 tabs 01/23/24 hydrocodone 5 mg-acetaminophen 325 1 tab PO BID 3 days #60 tabs 01/23/24 mg tablet amoxicillin 875 mg-potassium 1 tab PO Q12H #20 tabs 02/15/24 clavulanate 125 mg tablet Allergies Allergy/AdvReac Type Severity Reaction Status Date / Time acetaminophen [From Vicodin] AdvReac Verified 12/06/23 11:13 hydrocodone [From Vicodin] AdvReac Verified 12/06/23 11:13 tramadol AdvReac severe Verified 12/06/23 11:13 nausea with vomiting Worker's Comp Is this a Worker's Comp case?: No [facility] Disclaimer: The information contained in this section may have been updated after the patient was seen, as this information can be updated by other users. Medical History (Updated 02/15/24 @ 15:40 by Woo Corrales APRN) Tobacco use Hypertension Acute low back pain due to trauma Fall Right leg pain Hip pain Panic attacks Post traumatic stress disorder (PTSD) Depression Anxiety Surgical History History of H/O repair of rotator cuff Family History Other Unknown family medical history Social History Smoking Status: Current every day smoker alcohol intake: current current occupational status: other Travel in the last 8 weeks: None ROS Obtained: Yes All systems reviewed & no additional complaints except as documented Constitutional Constitutional: Denies chills and Denies fever(s) Eyes Eyes: Denies eye discharge ENT Ears, Nose, Mouth, and Throat: Reports as per HPI, Denies dizziness, Denies otalgia and Denies sore throat Cardiovascular Cardiovascular: Denies chest pain Respiratory Respiratory: Denies shortness of breath, Denies chest congestion, Denies cough, Denies stridor and Denies wheezing Gastrointestinal Gastrointestingal: Denies nausea or vomiting Musculoskeletal Musculoskeletal: Reports system reviewed and no additional complaints, except as documented and Denies arthralgias Integumentary/Breasts Skin/Breast: Denies rash Neurologic Neurologic: Denies dizziness and Denies paresthesias Allergic/Immunologic Allergic/Immunologic: Denies wheezing Physical Exam General General appearance: alert and in no apparent distress Head Head exam: atraumatic, normocephalic and normal inspection Eye Eye exam: Present normal appearance, PERRL and EOMI ENT ENT exam: Present mucous membranes moist, TM's normal bilaterally and normal external ear exam Expanded ENT Exam Nose exam: Absent sinus tenderness Nasal speculum exam: Bilateral: normal Mouth exam: Present normal external inspection; Absent drooling Teeth exam: Present dental caries, fractured tooth #, dental tenderness # and gingival swelling Throat exam: Present normal inspection Neck Neck exam: Present normal inspection, full ROM and trachea midline; Absent meningismus or lymphadenopathy Chest Chest inspection: Present normal inspection and symmetric chest wall rise; Absent tenderness Respiratory Respiratory exam: Present normal lung sounds bilaterally; Absent respiratory distress Cardiovascular Cardiovascular exam: Present regular rate and normal rhythm; Absent JVD Abdominal Exam Abdominal exam: Present soft and normal bowel sounds; Absent distention, tenderness or guarding Extremities Exam Extremities exam: Present normal inspection, full ROM and normal capillary refill; Absent calf tenderness Back Exam Back exam: Present normal inspection; Absent tenderness Neurological Exam Neurological exam: Present alert and oriented X3 Psychiatric Psychiatric exam: Present normal affect and normal mood Skin Skin exam: Present warm, dry, intact and normal color Lymphatic Lymphatic Findings: no adenopathy Medical Decision Making Medical Records Medical records reviewed: No I reviewed the patient's medical records. Screening: Per USPSTF and CDC recommendations, given the prevalence of disease in our region, it is our hospital?s policy to screen for HIV and viral Hepatitis for all patients aged 18 and over and those with ongoing risk factors. Lei Inquiry Pt receiving controlled substance: No Vital Signs: 02/15/24 14:54 Temperature 99.3 F Temperature Source Oral Pulse Rate [Left Radial] 104 H Respiratory Rate 18 Blood Pressure [Left Arm] 169/98 H Blood Pressure Mean [Left Arm] 121 02 Sat by Pulse Oximetry 96
[2024-02-15 15:41] VITALS: BP 169/98; PULSE 104; RESP 20; TEMP 37.4
== END 2024-02-15 15:43 | disposition home or self-care (01) ==
PROVIDERS: Emergency Provider Nurse Practitioner Family; PCP Family Medicine
DX: K04.7 Periapical abscess without sinus (principal)
CPT/HCPCS: 99213; G0381

== ENCOUNTER 2024-07-10 10:27 | Outpatient (CLI) | payer MEDICARE, BC, SELFPAY ==
[2024-07-10 21:16] LABS: Alanine Aminotransferase 35 U/L (12-78); Albumin Level 4.8 g/dl (3.5-5.0); Albumin/Globulin Ratio 1.7 (1.1-1.8); Alkaline Phosphatase 134 U/L (38-126); Anion Gap 12.2 mEq/L (5-15); Aspartate Amino Transferase 43 U/L (14-36); Bilirubin,Total 0.6 mg/dl (0.2-1.3); Blood Urea Nitrogen 9 mg/dl (7-17); Calcium 9.7 mg/dl (8.4-10.2); Carbon Dioxide 25 mmol/L (22.0-30.0); Chloride 106 mmol/L (98-107); Chol/HDL Ratio 4.1 (1-3.5); Cholesterol 231 mg/dl (140-200); Estimated Glomerular Filt Rate 103 ml/min (>60); GFR (African American) 124 ML/MIN (>60); Globulin 2.8 g/dL (1.3-3.2); Glucose 94 mg/dl (74-100); HDL Cholesterol 57 mg/dl (40-60); Potassium 4.2 mmoL/L (3.5-5.1); Sodium 139 mmol/L (136-145); Total Protein,Serum 7.6 g/dl (6.3-8.2); Triglycerides 235 mg/dl (30-150); VLDL Cholesterol 47 mg/dL (0-40)
[2024-07-10 21:28] LABS: Direct LDL Cholesterol 130.14 mg/dL (100-129)
== END 2024-07-10 23:59 | disposition home or self-care (01) ==
LOC: LAB.DROPOF 07-11 10:27
PROVIDERS: PCP Family Medicine; Visit Provider Family Medicine
DX: I10 Essential (primary) hypertension (principal); E78.5 Hyperlipidemia, unspecified
CPT/HCPCS: 80053; 80061

== ENCOUNTER 2024-07-13 15:59 | Outpatient (CLI) | payer MEDICARE, BC, SELFPAY ==
--- NOTE | 2024-07-13 16:01 | MM_ITS ---
PROCEDURE INFORMATION: Exam: MG Bilateral Screening 3D Mammography Exam date and time: 07/13/2024 4:05 PM Age: 58 years old Clinical indication: Screening examination TECHNIQUE: Imaging protocol: Bilateral Screening tomosynthesis and 2D mammography including computer-aided detection (CAD) when performed. COMPARISON: No relevant prior studies available. FINDINGS: MAMMOGRAPHY: Breast composition: The breasts are heterogeneously dense, which may obscure small masses. Mass: Irregular mass measuring 2.2 cm with associated calcifications, architectural distortion, skin retraction, nipple retraction in the upper-outer left breast at anterior to middle depth. Architectural distortion: Questioned small region of architectural distortion/change in the upper inner right breast at anterior depth. Calcifications: See above Asymmetric density: None. Skin thickening: None. Axillary adenopathy: None. IMPRESSION: 1. Irregular left breast mass.Recommend left breast diagnostic mammogram including spot compression views of the left breast in the CC and MLO projections, a full 90 degree lateral view, and left breast ultrasound for further evaluation. 2. Questioned small area of architectural distortion in the right breast.Recommend right breast diagnostic mammogram including spot compression views of the right breast in the CC and MLO projections, a full 90 degree lateral view, and right breast ultrasound for further evaluation. ASSESSMENT: BI-RADS Category 0: Incomplete- Need Additional Imaging Evaluation.
== END 2024-07-13 23:59 | disposition home or self-care (01) ==
LOC: RAD 16:01
PROVIDERS: PCP Family Medicine; Visit Provider Family Medicine
DX: Z12.31 Encounter for screening mammogram for malignant neoplasm of breast (principal)
CPT/HCPCS: 77063; 77067

== ENCOUNTER 2024-08-01 13:42 | Outpatient (CLI) | payer MEDICARE, SELFPAY ==
--- NOTE | 2024-08-01 14:00 | US_ITS ---
PROCEDURE INFORMATION: Exam: US Right Breast, Complete US Left Breast, Complete MG Bilateral Diagnostic Breast Tomosynthesis Exam date and time: 08/01/2024 2:12 PM Age: 58 years old Clinical indication: Recall on the basis of screening mammogram 07/13/2024 for further evaluation of irregular mass measuring 2.2 cm with associated calcifications, architectural distortion, skin retraction, nipple retraction in the upper-outer left breast at anterior to middle depth and questioned small region of architectural distortion/change in the upper inner right breast at anterior depth. TECHNIQUE: Imaging protocol: Complete ultrasound of all four quadrants of the right breast and the retroareolar regions, including ultrasound of the axilla when performed. Complete ultrasound of all four quadrants of the left breast and the retroareolar regions, including ultrasound of the axilla when performed. Bilateral Diagnostic tomosynthesis and 2D mammography including computer-aided detection (CAD) when performed. Unilateral or bilateral exam. Only 2D spot compressions are submitted. COMPARISON: MG MM DIG SCREENING MAMM BI W/CAD 07/13/2024 4:05 PM FINDINGS: MAMMOGRAPHY: Breast composition: The breast is heterogeneously dense, which may obscure small masses based on the most recent screening mammogram report. Breast mammogram findings: On the right, no persistent architectural distortion in the upper inner breast anterior depth. No mass or asymmetry in this region. On the left, persistent irregular 2.2 cm mass with calcifications and overlying skin deformity, and possible tethering. ULTRASOUND: Breast ultrasound findings: Bilateral sonography, off for quadrants, retroareolar and axilla. On the right, at 2 o'clock 1 cm from the nipple, oval hypoechoic avascular mass measuring 0.7 x 0.3 x 0.5 cm. At 9 o'clock 2 cm from the nipple, oval hypoechoic avascular mass with thin avascular septation and avascular low-level echoes measuring 0.6 x 0.3 x 0.3 cm. Retroareolar, probably adjacent hypoechoic masses with thin avascular with peripheral somewhat rounded low-level avascular echoes, measuring 0.4 cm, which may be debris or an intraductal mass. Sonographically unremarkable axillary lymph node. On the left, at 2 o'clock 3 cm from the nipple, spiculated solid mass with angular margins measuring 2.8 x 2.0 x 2.8 cm with suggestion of minimal Doppler flow, corresponding to the mammographic mass - no attachment to skin demonstrated. At 12 o'clock 2 cm from the nipple, irregular solid mass measuring 0.7 x 0.8 x 0.7 cm. At 4 o'clock 2 cm from the nipple, oval heterogeneous hypoechoic avascular mass with no related Doppler flow measuring 0.6 x 0.4 x 0.5 cm. At 8 o'clock 3 cm from the nipple, oval hypoechoic mass with a thin avascular septation measuring 0.3 x 0.3 x 0.4 cm. Sonographically unremarkable axillary lymph node. IMPRESSION: Recommend ultrasound guided biopsy for screening detected irregular mass, highly suspicious for cancer, in the left upper outer quadrant, at 2 o'clock with related skin deformity. Advise correlation with postprocedure mammogram to ensure sonographically placed clip corresponds to the mammographic mass. Recommend ultrasound-guided biopsy for irregular sonographic mass at 12 o'clock, highly suspicious for additional cancer. Recommend ultrasound-guided biopsy for possible intraductal mass, avascular in the right retroareolar region. Bilateral probable benign complicated cysts on the right at 2 o'clock and 9 o'clock and on the left at 4 o'clock and 8 o'clock. Consider follow-up with breast MRI for evaluation of extent of disease (after above recommended biopsies), alternatively ultrasound-guided aspiration and/or biopsy of these findings could be performed. No persistent architectural distortion and no related sonographic finding at the screening detected questioned area of architectural distortion in the upper inner right breast. ASSESSMENT: BI-RADS Category 5: Highly suggestive of malignancy.
== END 2024-08-01 23:59 | disposition home or self-care (01) ==
LOC: RAD 13:43
PROVIDERS: PCP Family Medicine; Visit Provider Family Medicine
DX: R92.8 Other abnormal and inconclusive findings on diagnostic imaging of breast (principal)
CPT/HCPCS: 76641; 77062; 77066; G0279

== ENCOUNTER 2024-10-05 10:06 | Outpatient (CLI) | payer MEDICARE, SELFPAY ==
[2024-10-05 19:50] LABS: Alanine Aminotransferase 34 U/L (12-78); Albumin Level 4.6 g/dl (3.5-5.0); Albumin/Globulin Ratio 1.4 (1.1-1.8); Alkaline Phosphatase 108 U/L (38-126); Anion Gap 11.9 mEq/L (5-15); Aspartate Amino Transferase 36 U/L (14-36); Bilirubin,Total 0.5 mg/dl (0.2-1.3); Blood Urea Nitrogen 12 mg/dl (7-17); Calcium 9.6 mg/dl (8.4-10.2); Carbon Dioxide 26 mmol/L (22.0-30.0); Chloride 108 mmol/L (98-107); Chol/HDL Ratio 3.7 (1-3.5); Cholesterol 204 mg/dl (140-200); Estimated Glomerular Filt Rate 126 ml/min (>60); GFR (African American) 153 ML/MIN (>60); Globulin 3.2 g/dL (1.3-3.2); Glucose 102 mg/dl (74-100); HDL Cholesterol 55 mg/dl (40-60); Potassium 4.9 mmoL/L (3.5-5.1); Sodium 141 mmol/L (136-145); Total Protein,Serum 7.8 g/dl (6.3-8.2); Triglycerides 160 mg/dl (30-150); VLDL Cholesterol 32 mg/dL (0-40)
[2024-10-05 20:01] LABS: Direct LDL Cholesterol 112.12 mg/dL (100-129)
== END 2024-10-05 23:59 | disposition home or self-care (01) ==
LOC: LAB.DROPOF 10-08 10:07
PROVIDERS: PCP Family Medicine; Visit Provider Family Medicine
DX: I10 Essential (primary) hypertension (principal)
CPT/HCPCS: 80053; 80061

== ENCOUNTER 2024-10-24 08:32 | Outpatient (CLI) | payer MEDICARE, SELFPAY ==
--- NOTE | 2024-10-24 09:00 | US_ITS ---
FINAL REPORT CLINICAL HISTORY: screen for malignancy -- LT BREAST MASSES 1200 AND 200 -- DR.ALEX HAIR FINDINGS: ULTRASOUND-GUIDED LEFT BREAST CORE BIOPSY, 1 of 2 HISTORY: Left breast mass , left upper outer quadrant lesion TECHNIQUE: The left breast was prepped in a routine sterile fashion and locally anesthetized with 1% lidocaine. Using sonographic guidance a 15 gauge needle was directed toward the lesion of interest. The needle was positioned within the outer periphery of the lesion. A total of 3 passes were made with a 16 gauge core biopsy needle. A biopsy marker clip was deployed in satisfactory position. A post biopsy mammogram was performed and dictated separately. Limited postbiopsy images showed no evidence of significant hemorrhage. Procedure was well tolerated. IMPRESSION: 1. Technically successful image guided biopsy of left breast lesion in the upper outer quadrant as above. ULTRASOUND-GUIDED LEFT BREAST CORE BIOPSY, 2 of 2 HISTORY: Left breast mass , retroareolar lesion at 12:00 TECHNIQUE: The left breast was prepped in a routine sterile fashion and locally anesthetized with 1% lidocaine. Smaller 8 mm lesion was targeted 12:00. Using sonographic guidance a 15 gauge needle was directed toward the lesion of interest. The needle was positioned within the outer periphery of the lesion. A total of 3 passes were made with a 16 gauge core biopsy needle. A biopsy marker clip was deployed in satisfactory position. A post biopsy mammogram was performed and dictated separately. Limited postbiopsy images showed no evidence of significant hemorrhage. Procedure was well tolerated. IMPRESSION: 1. Technically successful image guided biopsy of left breast lesion retroareolar region at 12:00 as above. Authenticated and ERN
--- NOTE | 2024-10-24 09:13 | US_ITS ---
FINAL REPORT CLINICAL HISTORY: breast cancer -- RT BREAST MASS - DR.ALEX HAIR - RETROAREOLAR FINDINGS: ULTRASOUND-GUIDED RIGHT BREAST CORE BIOPSY HISTORY: Right breast mass TECHNIQUE: The right breast was prepped in a routine sterile fashion and locally anesthetized with 1% lidocaine. Lesion in the retroareolar right breast at 12:00 was localized. An 11-gauge vacuum-assisted hand-held device was initially attempted. The needle could not be positioned posterior to the lesion due to dense tissue with ligaments preventing advancement of the device in appropriate position. During attempted needle placement the lesion was noted to be smaller which is suggestive of a partially ruptured complex cyst. A 17-gauge guide needle was directed toward the periphery of the lesion. 3 separate 18-gauge core biopsies were obtained. A biopsy marker clip was deployed in satisfactory position. A post biopsy mammogram was performed and dictated separately. Limited postbiopsy images showed no evidence of significant hemorrhage. Marker clip is noted to be in satisfactory position. Procedure was well tolerated. IMPRESSION: 1. Technically successful guided core biopsy of right breast lesion as above. 2. Biopsy marker clip deployed Authenticated and ERN
--- NOTE | 2024-10-24 09:21 | MM_ITS ---
FINAL REPORT CLINICAL HISTORY: post bx FINDINGS: MAMMOGRAM RIGHT 2D TECHNIQUE: Standard digital 2D views COMPARISON: 08/01/2024 and 07/13/2024 DENSITY: There are scattered areas of fibroglandular density FINDINGS: Post biopsy marker clip is noted in satisfactory position in the retroareolar region at approximately 1:00. Postbiopsy changes are noted. IMPRESSION: Biopsy marker clip in good position ASSESSMENT: Post procedure mammogram for marker placement RECOMMENDATION: Pending histopathology evaluation Authenticated and ERN
--- NOTE | 2024-10-24 09:21 | MM_ITS ---
FINAL REPORT CLINICAL HISTORY: post bx FINDINGS: MAMMOGRAM LEFT TECHNIQUE: Standard digital 2-D views COMPARISON: 07/13/2024 and 08/01/2024 DENSITY: There are scattered areas of fibroglandular density FINDINGS: Biopsy marker clips are seen left breast upper outer quadrant and at 12:00 corresponding to 2 separate biopsies performed. Postbiopsy changes are noted. IMPRESSION: Biopsy marker clips in good position ASSESSMENT: A post-procedure mammogram is used to confirm the position and deployment of a breast tissue marker after a biopsy RECOMMENDATION: Pending histopathology evaluation Authenticated and ERN
== END 2024-10-24 23:59 | disposition home or self-care (01) ==
LOC: RAD 08:32
PROVIDERS: PCP Family Medicine; Visit Provider Internal Medicine Medical Oncology
DX: C50.412 Malignant neoplasm of upper-outer quadrant of left female breast (principal); N63.10 Unspecified lump in the right breast, unspecified quadrant; N60.31 Fibrosclerosis of right breast; N61.0 Mastitis without abscess; R92.321 Mammographic fibroglandular density, right breast
CPT/HCPCS: 19083; 77065; 88305; 88342; 88360

== ENCOUNTER 2025-04-26 10:27 | Outpatient (CLI) | payer MEDICARE, SELFPAY ==
--- OUTSIDE RECORDS SUMMARY | 2025-03-12 11:30 | XMS_ITS | Encounter Summary ---
Author Organization [facility] Address [address] [place] [address] Care Team Providers Care Rod Bending Machine Operator Name Role Phone Christopher Palacios MD Primary Care Provider [phone] Reason for Referral * Imaging (Urgent) - Authorized Specialty Diagnoses / Procedures Referred By Contac t Referred To Contact Diagnoses Infiltrating ductal carcinoma of left female breast Procedures NM Bone Scan Whole Body Gloria Vail MD [address] [address] Phone: tel: fax: Referral ID Status Reason Start Date Expiration Date V isits Requested Visits Authorized [id number] Authorized 03/12/2025 09/11/2026 2 2 * Imaging (Urgent) - Authorized Specialty Diagnoses / Procedures Referred By Contac t Referred To Contact Diagnoses Infiltrating ductal carcinoma of left female breast Procedures CT Chest w IV Contrast Gloria Vail MD [address] [address] Phone: tel: fax: Referral ID Status Reason Start Date Expiration Date V isits Requested Visits Authorized [id number] Authorized 03/12/2025 09/11/2026 1 1 * Imaging (Urgent) - Authorized Specialty Diagnoses / Procedures Referred By Contac t Referred To Contact Diagnoses Infiltrating ductal carcinoma of left female breast Procedures CT Abdomen Pelvis w IV Contrast Gloria Vail MD [address] [facility] [place] [facility] [address] [place] [address] Phone: tel: fax: Referral ID Status Reason Start Date Expiration Date V isits Requested Visits Authorized [id number] Authorized 03/12/2025 09/11/2026 1 1 Reason for Visit * Reason Comments Follow-up Encounter Details Date Type Department Care Team (Late st Contact Info) Description 03/12/2025 11:30 AM EST Office Visit [facility] [address] [facility]nd [place] [address] Gloria Vail MD [address] [facility] [place] [facility] [address] [place] [address] Infiltrating ductal carcinoma of left [...] 12:21 PM EST documented in this encounter Miscellaneous Notes * Progress Notes - Zakiya Jara MD - 03/12/2025 11:30 AM EST Images from the original note were not included. [facility] Postoperative Note Jennifer Jara is a 59 y.o. female with pmhx of left IDC grade 2, fP0nM1x s/p bilateral mastectomy with SLNB (01/30/25) who returns today for her postoperative visit. During her last visit we discussed her pathology and the utility of radiation vs left axillary lymphadenectomy given her matt disease. She remains adamantly against radiation and [...] the hormone receptors is as follows: ER IL Her2 (IHC) Previous Breast Biopsy ([id number], 12:00 site) positive (>95%, 3+) positive (>95%, 3+) negative (0) Previous Breast Biopsy ([id number], 2:00 site) positive (>95%, 2+) positive (80%, [...] Type Comment: with lobular features Histologic Grade (Isra Histologic Score): Glandular (Acinar) / Tubular Differentiation: [...] Nodes with Micrometastases: 0 Size of Largest Matt Metastatic Deposit: 8 mm Extranodal Extension: Present, greater than 2 mm Amount: 3.5 mm Total Number of Lymph Nodes Examined (sentinel and non-sentinel): 3 Number of [place] Nodes Examined: 1 pTNM CLASSIFICATION (AJCC 8th [...] Drug Administration (FDA) cleared (test / vendor): [employer] [facility] Primary Antibody: SP1 PgR Testing Methodology: PgR Test Type: Food and Drug Administration (FDA) cleared (test / vendor): [employer] [place] PgR Primary Antibody: 1E2 HER2 IHC Testing Methodology: HER2 IHC Test Type: Food and Drug Administration (FDA) cleared (test / vendor): [employer] [place] HER2 IHC Primary Antibody: 4B5 Image Analysis: [...] Drug Administration (FDA) cleared (test / vendor): [employer] [facility] Primary Antibody: SP1 PgR Testing Methodology: PgR Test Type: Food and Drug Administration (FDA) cleared (test / vendor): [employer] PgR Primary Antibody: 1E2 HER2 IHC Testing Methodology: HER2 IHC Test Type: Food and Drug Administration (FDA) cleared (test / vendor): [employer] [place] HER2 IHC Primary Antibody: 4B5 Image Analysis: [...] Stage IB (cT2, cN0, cM0, G2, ER+, IL+, HER2-) - Unsigned Stage prefix: Initial diagnosis Method of lymph node assessment: Other Histologic grading system: 3 grade system - Pathologic stage from 01/30/2025: Stage IB (pT2, pN1a(sn), cM0, G2, ER+, IL+, HER2-) - Unsigned Stage prefix: Initial diagnosis Method of lymph node assessment: [place] lymph node biopsy Multigene prognostic tests performed: None Histologic grading system: 3 grade system Plan: Today we discussed patient's pathology with her again, which as also been discussed at our multidisciplinary tumor board. The patient has invasive ductal carcinoma of the left breast that measured 2.3 cm in size, ER/IL positive, HER2 negative. She had a total [...] at any point. Dr. Gloria Vail MD Nursing Unit Manager of Surgical Oncology [facility] Cosigned by Gloria Vail MD at 03/14/2025 [...] medical decision making. Dr. Gloria Vail MD Nursing Unit Manager of Surgical Oncology [facility] documented in this encounter Plan of Treatment Upcoming Encounters Date Type Department Care Team (Late st Contact Info) Description 05/08/2025 1:30 PM EST Hospital Encounter [facility] [address] [place] [address] Gloria Vail MD [address] [address] 05/08/2025 1:30 PM EST - 05/08/2025 3:30 PM EST Surgery [facility] [address] [place] [address] Gloria Vail MD 800 [facility] [place] [facility] [address] [place] [address] Left ax dissection [19020 (CPT )] 05/21/2025 3:00 PM EST Office Visit [facility] [address] [facility] 2nd [place] [address] Gloria Vail MD 800 [facility] [address] [place] [address] Scheduled Orders Name Type Priority Associated Diagnoses [...] Infiltrating ductal carcinoma of left female breast 05/08/2025 1:30 PM EST documented as of this encounter Goals Goal [...] LAB COAGULATION METHOD 03/12/2025 2:48 PM EST [facility] INR 0.9 0.9 - 1.1 LAB COAGULATION METHOD 03/12/2025 2:48 PM EST [facility] Blood Venous blood specimen / Unknown Venipuncture / Unknown 03/12/2025 1:53 PM EST 03/12/2025 2:12 PM EST Narrative [facility] - 03/12/2025 2:48 PM EST OPTIMAL INR RANGES FOR PATIENT ON ORAL ANTICOAGULANT THERAPY Prevention of venous thromboembolism INR 2.0 to 3.0 In patients with heart disease: Atrial fibrillation INR 2.0 to 3.0 Valvular heart disease INR 2.0 to 3.0 Tissue heart valves INR 2.0 to 3.0 Mechanical prosthetic valves INR 2.5 to 3.5 Prevention of recurrent RI INR 2.5 to 3.5 us Gloria Vail MD LAB BLOOD ORDERABLES Final Resul t [facility] [address] [place] [address] * (ABNORMAL) Comprehensive metabolic panel (03/12/2025 1:53 PM EST) Glucose, Plasma 95 74 - 99 mg/dL 03/12/2025 2:48 PM EST [facility] BUN, Plasma 10 7 - 21 mg/dL 03/12/2025 2:48 PM EST [facility] Creatinine, Plasma 0.51(L) 0.60 - 1.10 mg/dL 03/12/2025 2:48 PM EST [facility] BUN/Creatinine Ratio 20 03/12/2025 2:48 PM EST [facility] Sodium, Plasma 138 136 - 145 mmol/L 03/12/2025 2:48 PM EST [facility] Potassium, Plasma 4.0 3.6 - 4.9 mmol/L 03/12/2025 2:48 PM EST [facility] Chloride, Plasma 103 97 - 107 mmol/L 03/12/2025 2:48 PM EST [facility] CO2, Plasma 23 22 - 29 mmol/L 03/12/2025 2:48 PM EST [facility] Anion Gap 12 6 - 16 mmol/L 03/12/2025 2:48 PM EST [facility] Total Calcium, Plasma 9.4 8.9 - 10.2 mg/dL 03/12/2025 2:48 PM EST [facility] Total Protein 8.3(H) 6.3 - 7.9 g/dL 03/12/2025 2:48 PM EST [facility] Albumin, Plasma 4.5 3.5 - 5.2 g/dL 03/12/2025 2:48 PM EST [facility] AST, Plasma 23 10 - 35 U/L 03/12/2025 2:48 PM EST [facility] ALT, Plasma 20 10 - 35 U/L 03/12/2025 2:48 PM EST [facility] Alkaline Phosphatase, Plasma 129 46 - 142 U/L 03/12/2025 2:48 PM EST [facility] Total Bilirubin, Plasma 0.6 0.2 - 1.1 mg/dL 03/12/2025 2:48 PM EST [facility] eGFRcr 107.7 mL/min/1.7 3m*2 03/12/2025 2:48 PM EST [facility] Comment:Reported eGFRcr in m L/min/1.73m2 is based the CKD-EPI 2020 equation that does not use a race coefficient. Blood Venous blood specimen / Unknown Venipuncture / Unknown 03/12/2025 1:53 PM EST 03/12/2025 2:13 PM EST Gloria Vail MD LAB BLOOD ORDERABLES Final Resul t [facility] [address] [place] [address] * (ABNORMAL) CBC and differential (03/12/2025 1:53 PM EST) WBC Count 7.92 3.70 - 10.30 10*3/uL LAB HEMATOLOGY METHOD 03/12/2025 2:47 PM EST [facility] RBC Count 4.42 3.90 - 5.20 10*6/uL LAB HEMATOLOGY METHOD 03/12/2025 2:47 PM EST [facility] HGB 15.1 11.2 - 15.7 g/dL LAB HEMATOLOGY METHOD 03/12/2025 2:47 PM EST [facility] HCT 45.3(H) 34.0 - 45.0 % LAB HEMATOLOGY METHOD 03/12/2025 2:47 PM EST [facility] Platelet Count 280 155 - 369 10*3/uL LAB HEMATOLOGY METHOD 03/12/2025 2:47 PM EST [facility] MCV 103(H) 79 - 98 fL LAB HEMATOLOGY METHOD 03/12/2025 2:47 PM EST [facility] MCH 34.2(H) 26.0 - 32.0 pg LAB HEMATOLOGY METHOD 03/12/2025 2:47 PM [facility] MCHC 33.3 30.7 - 35.5 g/dL LAB HEMATOLOGY METHOD 03/12/2025 2:47 PM [facility] RDW 12.8 11.5 - 14.5 % LAB HEMATOLOGY METHOD 03/12/2025 2:47 PM EST [facility] MPV 8.8 8.8 - 12.5 fL LAB HEMATOLOGY METHOD 03/12/2025 2:47 PM EST [facility] nRBC 0.0 <=0.0 per 100 WBCs LAB HEMATOLOGY METHOD 03/12/2025 2:47 PM EST [facility] Differential Type Automated LAB HEMATOLOGY METHOD 03/12/2025 2:47 PM [facility] Neutrophils % 50 % LAB HEMATOLOGY METHOD 03/12/2025 2:47 PM [facility] Lymphocytes % 33 % LAB HEMATOLOGY METHOD 03/12/2025 2:47 PM [facility] Monocytes % 9 % LAB HEMATOLOGY METHOD 03/12/2025 2:47 PM [facility] Eosinophils % 6 % LAB HEMATOLOGY METHOD 03/12/2025 2:47 PM [facility] Basophils % 1 % LAB HEMATOLOGY METHOD 03/12/2025 2:47 PM [facility] Immature Granulocytes % 1 % LAB HEMATOLOGY METHOD 03/12/2025 2:47 PM [facility] Neutrophils Absolute 4.05 1.60 - 6.10 10*3/uL LAB HEMATOLOGY METHOD 03/12/2025 2:47 PM EST [facility] Lymphocytes Absolute 2.63 1.20 - 3.90 10*3/uL LAB HEMATOLOGY METHOD 03/12/2025 2:47 PM [facility] Monocytes Absolute 0.67 0.30 - 0.90 10*3/uL LAB HEMATOLOGY METHOD 03/12/2025 2:47 PM EST [facility] Eosinophils Absolute 0.44 0.00 - 0.50 10*3/uL LAB HEMATOLOGY METHOD 03/12/2025 2:47 PM [facility] Basophils Absolute 0.09 0.00 - 0.10 10*3/uL LAB HEMATOLOGY METHOD 03/12/2025 2:47 PM [facility] Immature Granulocytes Absolute 0.04 0.00 - 0.06 10*3/uL LAB HEMATOLOGY METHOD 03/12/2025 2:47 PM EST [facility] Blood Venous blood specimen / Unknown Venipuncture / Unknown 03/12/2025 1:53 PM EST 03/12/2025 2:39 PM EST Narrative [facility] - 03/12/2025 2:47 PM EST Therapeutic decision making should be based on absolute values, rather than percentages. us Gloria Vail MD LAB BLOOD ORDERABLES Final Resul t Performing Organization Address City/State/[facility] Co de Phone Number [facility] [address] [place] [address] documented in this encounter Visit Diagnoses Diagnosis Infiltrating ductal carcinoma of left female breast- Primary Infiltrating ductal carcinoma of left female breast documented in this encounter Additional Health Concerns Active Problems Noted Date Diagnosed Date Autogenerated Problem 11/21/2024 Assessment Noted Time A fall risk assessment has been complete d for the patient 02/20/2025 11:35 AM EDT A Body Mass Index follow-up plan has been documented for the patient 03/14/2025 10:41 PM EST documented as of this encounter Care Teams Rod Bending Machine Operator Relationship Specialty Start Date End Date Christopher Palacios MD [id number] PCP - General 11/20/24 documented as of this encounter
[2025-04-26] MEDS: SODIUM CHLORIDE 0.9% 10ML SYR (RAD ONLY) 10 ML IV (10:30)
--- OUTSIDE RECORDS SUMMARY | 2025-04-26 10:30 | XMS_ITS | Encounter Summary ---
Author Organization [facility] Address [address] [place] [address] Care Team Providers Care Dishwasher Name Role Phone Christopher Palacios MD Primary Care Provider [phone] Encounter Details Date Type Department Care Team (Late Contact Info) Description 10/24/2024 Orders Only External Location [address] [place] [phone] Provider, External Social History Tobacco Use Types Packs/Day Years Used Date Smoking Tobacco: Never Assessed Comments Unknown Sex and Gender Information Value Date Recorded Sex Assigned at Not on file Legal Sex Female 10:36 AM EDT Gender Identity Not on file Sexual Orientation Not on file documented as of this encounter Plan of Treatment Upcoming Encounters Date Type Department Care Team (Late Contact Info) Description 05/08/2025 1:30 PM EST Hospital Encounter [facility] [address] [place] [phone] Gloria Vail MD [address] [facility] [place] [address] [address] 05/08/2025 1:30 PM EST - 05/08/2025 3:30 PM EST Surgery [facility] [address] [place] [address] Gloria Vail MD 800 [facility] [place] [address] [address] Left ax dissection [[id number] (CPT )] 05/21/2025 3:00 PM EST Office Visit [facility] [address] [place] [address] Gloria Vail MD [address] [facility] [address] [place] [address] Scheduled Procedures Name Priority Associated Diagnoses Date/Ti me LYMPHADENECTOMY, AXILLARY Infiltrating ductal carcinoma of left female breast 05/08/2025 1:30 PM EST documented as of this encounter Procedures Procedure Name Priority Date/Time Associated Diagnosis Comments MAMMOGRAPHY OUTSIDE IMAGES 10/24/2024 10:48 AM EDT documented in this encounter Results * MAMMOGRAPHY OUTSIDE IMAGES (10/24/2024 10:48 AM EDT) Anatomical Region Laterality Modality Breast Mammography 10/24/2024 10:4 8 AM EDT us External Provider IMG BI PROCEDURES Final Result documented in this encounter Visit Diagnoses Not on filedocumented in this encounter Care Teams Dishwasher Relationship Specialty Start [place] [id number] PCP - General 11/20/24 documented as of this encounter
--- OUTSIDE RECORDS SUMMARY | 2025-04-26 10:30 | XMS_ITS | Encounter Summary ---
Author Organization [facility] Address [address] [place] [address] Care Team Providers Care Examination Supervisor Name Role Phone Christopher Palacios MD Primary Care Provider [phone] Encounter Details Date Type Department Care Team (Late Contact Info) Description 10/24/2024 Orders Only External Location [address] [place] [phone] Provider, External Social History Tobacco Use [...] Hospital Encounter [facility] [address] [place] [address] Gloria Vail MD 800 [facility] [place] [address] [address] 05/08/2025 1:30 PM EST - 05/08/2025 3:30 PM EST Surgery [facility] [address] [place] [address] Gloria Vail MD 800 [facility] [place] [address] [address] Left ax dissection [[id number] (CPT )] 05/21/2025 3:00 PM EST Office Visit [facility] [address] [place] [address] Gloria Vail MD [address] [facility] [address] [place] [address] Scheduled Procedures Name Priority Associated Diagnoses Date/Ti me LYMPHADENECTOMY, AXILLARY Infiltrating ductal carcinoma of left female breast 05/08/2025 1:30 PM EST documented as of this encounter Procedures Procedure Name Priority Date/Time Associated Diagnosis Comments US BREAST OUTSIDE IMAGES 10/24/2024 9:25 AM EDT documented in this encounter Results * US BREAST OUTSIDE IMAGES (10/24/2024 9:25 AM EDT) Anatomical Region Laterality Modality Breast Mammography 10/24/2024 9:25 AM EDT us External Provider IMG BI PROCEDURES Final Result documented in this encounter Visit Diagnoses Not on filedocumented in this encounter Care Teams Examination Supervisor Relationship Specialty Start [place] [id number] PCP - General 11/20/24 documented as of this encounter
--- OUTSIDE RECORDS SUMMARY | 2025-04-26 10:30 | XMS_ITS | Encounter Summary ---
Author Organization [facility] Address [address] [place] [address] Care Team Providers Care Glass Ribbon Machine Operator Assistant Name Role Phone Christopher Palacios MD Primary Care Provider [phone] Encounter Details Date Type Department Care Team (Late Contact Info) Description 08/01/2024 Orders Only External Location [address] [place] [phone] Provider, External Social History Tobacco Use [...] Hospital Encounter [facility] [address] [place] [address] Gloria Vail MD 800 [facility] [place] [address] [address] 05/08/2025 1:30 PM EST - 05/08/2025 3:30 PM EST Surgery [facility] [address] [place] [address] Gloria Vail MD 800 [facility] [place] Reyn[address] [address] Left ax dissection [[id number] (CPT )] 05/21/2025 3:00 PM EST Office Visit [facility] [address] [place] [address] Gloria Vail MD [address] [facility] [address] [place] [address] Scheduled Procedures Name Priority Associated Diagnoses Date/Ti me LYMPHADENECTOMY, AXILLARY Infiltrating ductal carcinoma of left female breast 05/08/2025 1:30 PM EST documented as of this encounter Procedures Procedure Name Priority Date/Time Associated Diagnosis Comments MAMMOGRAPHY OUTSIDE IMAGES 08/01/2024 2:12 PM EDT documented in this encounter Results * MAMMOGRAPHY OUTSIDE IMAGES (08/01/2024 2:12 PM EDT) Anatomical Region Laterality Modality Breast Mammography 08/01/2024 2:12 PM EDT us External Provider IMG BI PROCEDURES Final Result documented in this encounter Visit Diagnoses Not on filedocumented in this encounter Care Teams Glass Ribbon Machine Operator Assistant Relationship Specialty Start [place] [id number] PCP - General 11/20/24 documented as of this encounter
--- OUTSIDE RECORDS SUMMARY | 2025-04-26 10:31 | XMS_ITS | Encounter Summary ---
Author Organization [facility] Address [address] [place] [address] Care Team Providers Care Police Officer Booking Name Role Phone Christopher Palacios MD Primary Care Provider [phone] Encounter Details Date Type Department Care Team (Late Contact Info) Description 12/01/2023 Orders Only External Location [address] [place] [phone] Provider, External Social History Tobacco Use [...] Hospital Encounter [facility] [address] [place] [id number] Gloria Vail MD 800 [facility] [place] [address] [phone] 05/08/2025 1:30 PM EST - 05/08/2025 3:30 PM EST Surgery [facility] [address] [place] [phone] Gloria Vail MD 800 [facility] Hailey Reynoso [address] [phone] Left ax dissection [42325 (CPT )] 05/21/2025 3:00 PM EST Office Visit [facility] [address] [place] [address] Gloria Vail MD [address] [facility] [address] [place] [address] Scheduled Procedures Name Priority Associated Diagnoses Date/Ti me LYMPHADENECTOMY, AXILLARY Infiltrating ductal carcinoma of left female breast 05/08/2025 1:30 PM EST documented as of this encounter Procedures Procedure Name Priority Date/Time Associated Diagnosis Comments XR OUTSIDE IMAGES 12/01/2023 9:02 AM EDT documented in this encounter Results * XR OUTSIDE IMAGES (12/01/2023 9:02 AM EDT) Anatomical Region Laterality Modality Radiographic Sandra ging 12/01/2023 9:02 AM EDT us External Provider IMG XR PROCEDURES Final Result documented in this encounter Visit Diagnoses Not on filedocumented in this encounter Care Teams Police Officer Booking Relationship Specialty [place] [id number] PCP - General 11/20/24 documented as of this encounter
--- OUTSIDE RECORDS SUMMARY | 2025-04-26 10:31 | XMS_ITS | Encounter Summary ---
Author Organization [facility] Address [address] [place] [address] Care Team Providers Care State [employer] Agent Name Role Phone Christopher Palacios MD Primary Care Provider [phone] Encounter Details Date Type Department Care Team (Late Contact Info) Description 10/25/2023 Orders Only External Location [address] [place] [phone] Provider, External Social History Tobacco Use [...] Hospital Encounter [facility] [address] [place] [phone] Gloria Vail MD 800 [facility] [place] [address] [phone] 05/08/2025 1:30 PM EST - 05/08/2025 3:30 PM EST Surgery [facility] [address] [place] [phone] Gloria Vail MD 800 [facility] Hailey Reynoso [address] [phone] Left ax dissection [[id number] (CPT )] 05/21/2025 3:00 PM EST Office Visit [facility] [address] [place] [address] Gloria Vail MD [address] [facility] [address] [place] [address] Scheduled Procedures Name Priority Associated Diagnoses Date/Ti me LYMPHADENECTOMY, AXILLARY Infiltrating ductal carcinoma of left female breast 05/08/2025 1:30 PM EST documented as of this encounter Procedures Procedure Name Priority Date/Time Associated Diagnosis Comments CT MSK OUTSIDE IMAGES 10/25/2023 2:31 PM EDT documented in this encounter Results * CT MSK OUTSIDE IMAGES (10/25/2023 2:31 PM EDT) Anatomical Region Laterality Modality Computed Tomogra phy 10/25/2023 2:31 PM EDT us External Provider IMG CT PROCEDURES Final Result documented in this encounter Visit Diagnoses Not on filedocumented in this encounter Care Teams State Farm Agent Relationship Specialty Start [place] [id number] PCP - General 11/20/24 documented as of this encounter
--- OUTSIDE RECORDS SUMMARY | 2025-04-26 10:31 | XMS_ITS | Clinical Summary ---
Author Organization [facility] Address [address] [place] [address] Care Team Providers Care Manager Business Systems Name Role Phone Christopher Palacios MD Primary Care Provider + [phone] Allergies Active Allergy Reactions Criticality Noted Date Comments Tramadol Nausea 11/20/2024 Medications LORazepam (Ativan) 1 MG tablet Take 1 tablet by mouth 2 times a day as needed for anxiety. 11/03/19 Active QUEtiapine (SEROquel) 100 MG tablet Take 1 tablet by mouth nightly. 11/03/19 Active methocarbamol (Robaxin) 500 MG tablet Take 1 tablet by mouth 3 times a day as needed for muscle spasms. 21 tablet 02/01/20 Active Additional Information Patient not taking.Reported on 03/12/2025 ondansetron ODT (Zofran-ODT) 4 MG disintegrating tablet Dissolve 1 tablet on the tongue every 6 hours as needed for nausea or vomiting. 20 tablet 02/01/20 Active Additional Information Patient not taking.Reported on 03/12/2025 oxyCODONE (Roxicodone) 5 MG immediate release tablet Take 1 tablet by mouth every 6 hours as needed for severe pain. 10 tablet 02/01/20 Active Additional Information Patient not taking.Reported on 03/12/2025 naloxone (Narcan) 4 mg/0.1 mL nasal spray 1. Give 1 spray in nostril for no/slow breathing or cannot wake after opioid use 2. Call 911 3. Repeat in other nostril if symptoms continue 1 each 02/01/20 Active Additional Information Patient not taking.Reported on 03/12/2025 docusate sodium (Colace) 250 MG capsule Take 1 capsule by mouth daily. 10 capsule 02/01/20 Active Additional Information Patient not taking.Reported on 03/12/2025 acetaminophen (Tylenol) 500 MG tablet Take 2 tablets by mouth every 8 hours. Alternate between acetaminophen and ibuprofen 50 tablet 02/01/20 Active Additional Information Patient not taking.Reported on 03/12/2025 ibuprofen 800 MG tablet Take 1 tablet by mouth every 8 hours. Alternate between acetaminophen and ibuprofen 30 tablet 02/01/20 Active Additional Information Patient not taking.Reported on 03/12/2025 Active Problems Problem Noted Date Diagnosed Date Tobacco use disorder 03/12/2025 Breast cancer in female 01/30/2025 Infiltrating ductal carcinoma of left female piedad ast 11/20/2024 Cancer Staging:Clinical stage from 11/20/2024:Stage IB(cT2, cN0, cM0, G2, ER+, MI+, HER2-) - Unsigned Pathologic stage from 01/30/2025:Stage IB(pT2, pN1a(sn), cM0, G2, ER+, MI+, HER2- ) - Unsigned Encounters Date Type Department Care Team Description 03/12/2025 11:30 AM EST Office Visit [facility] Breast [address] [phone] Gloria Vail MD Infiltrating ductal carcinoma of left female breast (Primary Dx) 03/12/2025 Social Work [facility] Breast [address] [phone] Thalia Chambers, BARREL WASHER MACHINE 03/12/2025 Orders Only Radiology Virtual Dept. [address] [place] [address] Yeison Ferro MD 03/12/2025 Travel 03/11/2025 Telephone [facility] Breast [address] [phone] Thalia Chambers, BARREL WASHER MACHINE Social Work/navigation Follow-up 02/20/2025 11:00 AM EDT Office Visit [facility] Breast [address] [phone] Kasie Gar PA Infiltrating ductal carcinoma of left female breast (Primary Dx) 02/20/2025 Social Work [facility] Breast [address] [phone] Thalia Chambers, BARREL WASHER MACHINE 02/20/2025 Travel 02/19/2025 Telephone [facility] Breast [facility] [place] [address] Hailey Reynoso [facility] [address] [place] [address] Kaise Gar PA 02/15/2025 Telephone [facility] [address] [phone] Thalia Chambers, BARREL WASHER MACHINE Social Work/navigation Follow-up 02/12/2025 11:30 AM EDT Office Visit [facility] [address] [phone] Gloria Vail MD Infiltrating ductal carcinoma of left female breast (Primary Dx) 02/12/2025 Travel 02/11/2025 Telephone [facility] [address] [phone] Thalia Chambers, [facility] Resource Navigation 02/07/2025 Orders Only [facility] [address] [phone] Gloria Vail MD 01/30/2025 10:00 AM EDT - 01/30/2025 2:15 PM EDT Surgery [facility] [address] [place] [phone] Gloria Vail MD Bilateral mastectomy [67335 (CPT )] 01/30/2025 9:39 AM EDT Anesthesia Event [facility] [address] [place] [phone] Lex Toro MD Click, Allison M, MD 01/30/2025 7:19 AM EDT - 01/31/2025 2:48 PM EDT Hospital Encounter [facility] A Inpatient [facility] [address] [place] [address] Gloria Vail MD Breast cancer; Infiltrating ductal carcinoma of left female breast Discharge Disposition: Home or Self Care 01/30/2025 Travel 01/29/2025 Telephone [facility] [address] [facility] [place] [address] Radha Guerra RN 01/28/2025 Telephone [facility] Breast [place] [id number] [facility] [place] [address] Thalia Chambers, BARREL WASHER MACHINE Social Work/navigation Follow-up 01/28/2025 Telephone [facility] [address] [phone] Shawnee Kline from Last 3 Months Family History Medical History Relation Name Comments Malig Hyperthermia Neg Hx Social History Tobacco Use Types Packs/Day Years Used Date Smoking Tobacco: Every Day Cigarettes Smokeless Tobacco: Never Tobacco Cessation:Ready to Q uit: Not Asked; Counseling Given: Not Answered Alcohol Use Standard Drinks/Week Comments Yes 0 (1 standard drink = 0.6 oz pur e alcohol) a couple beers a week Comments No Sex and Gender Information Value Date Recorded Sex Assigned at Not on file Legal Sex Female 10:36 AM EDT Gender Identity Not on file Sexual Orientation Not on file Last Filed Vital Signs Vital Sign Reading [...] Mass Index 25.34 03/12/2025 12:21 PM EST Plan of Treatment Upcoming Encounters Date Type Department Care Team ([facility] Contact Info) Description 05/08/2025 1:30 PM EST Hospital Encounter [facility] A OPERATING ROOM [address] [place] [phone] Gloria Vail MD [address] [facility] Hailey Reynoso [facility] [address] [place] [address] 05/08/2025 1:30 PM EST - 05/08/2025 3:30 PM EST Surgery [facility] A OPERATING ROOM [address] [place] [phone] Gloria Vail MD [address] [facility] Hailey Reynoso [facility] [address] [place] [address] Left ax dissection [82822 (CPT )] 05/21/2025 3:00 PM EST Office Visit [facility] [address] [facility] [place] [address] Gloria Vail MD [address] [facility] [address] [place] [address] Scheduled Procedures Name Priority Associated Diagnoses Date/Ti me LYMPHADENECTOMY, AXILLARY Infiltrating ductal carcinoma of left female breast 05/08/2025 1:30 PM EST Health Maintenance Due Date Last Done Comments [facility]-Depression Screening 1965 [facility]-HIV Screening 1965 [facility]-Hepatitis C Screening 1965 [facility]-Medicare Annual Wellness (AWV) 1965 [facility]-/Child/Adol SDOH Screenings 1965 [id number] Vaccine (#1) 02/27/1966 [facility]- SDOH Screenings 08/29/1983 [facility]-Adult SDOH Screenings 08/29/1983 [facility]-DTaP,Tdap,and Td Vaccine s (1 - Tdap) 1984 [facility]-Hepatitis B Vaccines (1 of 3 - 19+ 3-dose series) 1984 [facility]-Pneumococcal Vaccine: 50 + Years (1 of 2 - PCV) 1984 [facility]-Zoster Vaccines (1 of 2) 1984 [facility]-Pap Smear 1986 [facility]-Cervical Cancer Screening 08/29/1995 [facility]-HPV/Cotest 08/29/1995 CT Colonography 2010 Colonoscopy 2010 FIT-DNA 2010 FIT 2010 FOBT 2010 Sigmoidoscopy 2010 [facility]-Colorectal Cancer Screening 2010 [facility]-Influenza Vaccine (#1) 2025 [facility]-Obesity Intervention Completed 025, 11/20/2024 HPV Vaccines (No Doses Required) Completed [facility]-HIB Vaccines Aged Out No longer e ligible based on patient's age to complete this topic [facility]-Hepatitis A Vaccines Aged Out No longer eligible based on patient's age to complete this topic [facility]-IPV Vaccines Aged Out No longer e ligible based on patient's age to complete this topic [facility]-Rotavirus Vaccines Aged Out No lo nger eligible based on patient's age to complete this topic Goals Goal Patient Goal Type Associated Problems Recent Progress Patient-Stated? Author Autogenerat ed Goal Care Plan Autogenerated Problem No Sukumar Trin[place] Autogenerat ed Goal Care Plan Autogenerated Problem No Sukumar [place] Procedures Procedure Name Priority Date/Time Associated Diagnosis Comments PROTHROMBIN TIME(PT) / INR Routine 03/12/2025 1:53 PM EST Infiltrating ductal carcinoma of left female breast COMPREHENSIVE METABOLIC PANEL, PLASMA Routine 03/12/2025 1:53 PM EST Infiltrating ductal carcinoma of left female breast CBC WITH AUTO DIFFERENTIAL Routine 03/12/2025 1:53 PM EST Infiltrating ductal carcinoma of left female breast SURGICAL PATHOLOGY EXAM Routine 01/30/2025 11:03 AM EDT Infiltrating ductal carcinoma of left female breast ANESTHESIA PERIPHERAL IV PLACEMENT Routine 01/30/2025 10:00 AM EDT PB ANESTHESIA PLACEHOLDER Routine 01/30/2025 9:48 AM EDT MI AN ELECTIVE ENDOTRACHEAL AIRWAY Routine 01/30/2025 9:48 AM EDT NM DERMAL INJECTION SENTINEL NODE Routine 01/30/2025 9:43 AM EDT Breast cancer MI BX/REMV,LYMPH NODE,DEEP AXILL 01/30/2025 9:29 AM EDT Infiltrating ductal carcinoma of left female breast MI MASTECTOMY, SIMPLE, COMPLETE 01/30/2025 9:29 AM EDT Infiltrating ductal carcinoma of left female breast from Last 3 Months Results * Prothrombin Time/INR (03/12/2025 1:53 PM [...] INR 2.5 to 3.5 Prevention of recurrent [place] INR 2.5 to 3.5 us Gloria Vail MD LAB BLOOD ORDERABLES Final Resul t [facility] [address] [place] [address] * (ABNORMAL) CBC and differential (03/12/2025 1:53 [...] 10*3/uL LAB HEMATOLOGY METHOD 03/12/2025 2:[address] [facility] MCV 103(H) 79 - 98 fL LAB HEMATOLOGY METHOD 03/12/2025 2:47 PM EST [facility] MCH 34.2(H) 26.0 - 32.0 pg LAB HEMATOLOGY METHOD 03/12/2025 2:47 PM EST [facility] MCHC 33.3 30.7 - 35.5 g/dL LAB HEMATOLOGY METHOD 03/12/2025 2:[address] [facility] RDW 12.8 11.5 - 14.5 % LAB HEMATOLOGY METHOD 03/12/2025 2:[address] [facility] MPV 8.8 8.8 - 12.5 fL LAB HEMATOLOGY METHOD 03/12/2025 2:[address] [facility] nRBC 0.0 <=0.0 per 100 WBCs LAB HEMATOLOGY METHOD 03/12/2025 2:[address] [facility] Differential Type Automated LAB HEMATOLOGY METHOD 03/12/2025 2:[address] [facility] Neutrophils % 50 % LAB HEMATOLOGY METHOD 03/12/2025 2:[address] [facility] Lymphocytes % 33 % LAB HEMATOLOGY METHOD 03/12/2025 2:[address] [facility] Monocytes % 9 % LAB HEMATOLOGY METHOD 03/12/2025 2:[address] [facility] Eosinophils % 6 % LAB HEMATOLOGY METHOD 03/12/2025 2:[address] [facility] Basophils % 1 % LAB HEMATOLOGY METHOD 03/12/2025 2:[address] [facility] Immature Granulocytes % 1 % LAB HEMATOLOGY METHOD 03/12/2025 2:[address] [facility] Neutrophils Absolute 4.05 1.60 - 6.10 10*3/uL LAB HEMATOLOGY METHOD 03/12/2025 2:[address] [facility] Lymphocytes Absolute 2.63 1.20 - 3.90 [...] PM EST 03/12/2025 2:39 PM EST Narrative [facility] - 03/12/2025 2:47 PM EST Therapeutic decision making should be based on absolute values, rather than percentages. us Gloria Vail MD LAB BLOOD ORDERABLES Final Resul t [facility] [address] [place] [address] * (ABNORMAL) Comprehensive metabolic panel (03/12/2025 1:53 [...] - 7.9 g/dL 03/12/2025 2:48 PM EST [facility] Albumin, Plasma 4.5 3.5 - 5.2 g/dL 03/12/2025 2:48 PM EST [facility] AST, Plasma 23 10 - 35 U/L 03/12/2025 2:48 PM EST [facility] ALT, Plasma 20 10 - 35 U/L 03/12/2025 2:48 PM EST [facility] Alkaline Phosphatase, Plasma 129 46 - 142 U/L 03/12/2025 2:48 PM EST [facility] Total Bilirubin, Plasma 0.6 [...] t [facility] [address] [place] [address] * Surgical Pathology Exam (01/30/2025 11:03 AM EDT) Case Report Surgical Pathology Case: [id number] Authorizing Provider: Gloria Vail MD Collected: 01/30/2025 1118 Ordering Location: [facility] Received: 01/30/2025 1152 Surgery Pathologist: Reyna Denis MD Specimens: A) - Breast, Left, Left mastectomy, short stitch superior, long stitch lateral (fresh for permanent) B) - Breast, Right, Right mastectomy, short stitch superior, long stitch lateral (fresh for permanent) C) - [place] Lymph Node, Left axillary sentinel lymph node,max signal, 9X90 (fresh for permanent) D) - Lymph Node (specify site):, Left axillary lymph node, suspicous, blue (fresh for permanent) E) - Breast, Left, Additonal left breast tissue (fresh for permanent) F) - Breast, Left, Additonal skin, left breast (fresh for permanent) 9:10 AM EDT [facility] Final Diagnosis A. BREAST, LEFT, MASTECTOMY: - INVASIVE GRADE 2 DUCTAL CARCINOMA WITH LOBULAR FEATURES - MARGINS FREE OF TUMOR - FINAL TUMOR STAGE: AT LEAST pT2, pN1a - SEE COMMENT AND CHECKLIST B. BREAST, RIGHT, MASTECTOMY: - BENIGN BREAST WITH BIOPSY SITE CHANGES, ADENOSIS, AND ASSOCIATED MICROCALCIFICATION S - NO EVIDENCE OF ATYPICAL HYPERPLASIA OR [...] EXCISION: - BENIGN SKIN; NO TUMOR SEEN 9:10 AM EDT [facility] at 0909 EDT Comment Determining the size and therefore the stage of the left breast carcinoma is challenging. Grossly there is a 70 mm lesion that spans much of the breast. Microscopically, this lesion is comprised of a mixture of fibrous tissue and multiple contiguous foci of invasive carcinoma. The largest focus on any one slide is 23 mm. While the gross findings are worrisome for a tumor greater than 50 mm (and therefore a pT3), the intermixed biopsy site changes and fibrosis make it difficult to be definitive. Therefore the tumor is staged as at least a pT2. Correlation with radiologic findings is strongly suggested. A summary of the hormone receptors is as follows: ER MI Her2 (IHC) Previous Breast Biopsy ([id number], 12:00 site) positive (>95%, 3+) positive (>95%, 3+) negative (0) Previous Breast Biopsy ([id number], 2:00 site) positive (>95%, 2+) positive (80%, 3+) low (1+) Current Breast Lesion (A) positive (90-100%, 2+) positive (90-100%, 2+) negative (0) Current Lymph Node (D) positive (90-100%, 2+) positive (100%, 3+) negative (0) 9:10 AM EDT [facility] Synoptic Checklist INVASIVE CARCINOMA OF THE BREAST: Resection INVASIVE CARCINOMA OF THE BREAST: RESECTION - All Specimens 8th Edition - Protocol posted: 10/26/2023 SPECIMEN Procedure: Total mastectomy Specimen Laterality: Left TUMOR Tumor Site: Clock position : 2 o'clock : 12 o'clock Histologic Type: Invasive carcinoma of no special type (ductal) Histologic Type Comment: with lobular features Histologic Grade ([place] Histologic Score): Glandular (Acinar) / Tubular Differentiation: [...] and / or Vascular Invasion: Not identified Microcalcification s: Present in non-neoplastic tissue Treatment Effect in [...] Examined (sentinel and non-sentinel): 3 Number of [place] Nodes Examined: 1 pTNM CLASSIFICATION (AJCC 8th Edition) Reporting of pT, pN, and (when applicable) pM categories is based on information available to the pathologist at the time the report is issued. As per the AJCC (Chapter 1, 8th Ed.) it is the managing physician's responsibility to establish the final pathologic stage [...] Testing Performed on Previous Biopsy: HER2 (by immunohistochemist ry): Negative (Score 1+) Testing Performed on Breast [...] Intensity of Staining: Moderate (2+) HER2 by Immunohistochemist ry (IHC) Status: Negative (Score 0) : No membrane staining detected (0 / absent membrane staining) METHODS Cold Ischemia and Fixation Times: Meet requirements specified in latest version of the ASCO / CAP Guidelines Fixative: Formalin ER Testing Methodology: ER Test Type: Food and Drug Administration (FDA) cleared (test / vendor): [employer] ER Primary Antibody: SP1 PgR Testing Methodology: PgR Test Type: Food and Drug Administration (FDA) cleared (test / vendor): [employer] PgR Primary Antibody: 1E2 HER2 IHC Testing Methodology: HER2 IHC Test Type: Food and Drug Administration (FDA) cleared (test / vendor): [employer] HER2 IHC Primary Antibody: 4B5 Image Analysis: [...] Intensity of Staining: Strong (3+) HER2 by Immunohistochemist ry (IHC) Status: Negative (Score 0) : Membrane [...] Drug Administration (FDA) cleared (test / vendor): [employer] ER Primary Antibody: SP1 PgR Testing Methodology: PgR Test Type: Food and Drug Administration (FDA) cleared (test / vendor): [employer] PgR Primary Antibody: 1E2 HER2 IHC Testing Methodology: HER2 IHC Test Type: Food and Drug Administration (FDA) cleared (test / vendor): [employer] HER2 IHC Primary Antibody: 4B5 Image Analysis: Not performed 9:[address] [facility] Clinical Information Infiltrating ductal carcinoma of left female breast [C50.912] Previous Pathology (LEFT breast) [id number] (left breast 12:00 biopsy): invasive grade 2 ductal carcinoma; 9 mm; ER: positive (>95%, 3+ intensity); MI: positive (>95%, 3+ intensity); Her-2/misa: negative (score 0) [id number] (left breast 2:00 biopsy): invasive grade 1 ductal carcinoma; 15 mm; ER: positive (>95%, 2+ intensity); MI: positive (80%, 3+ intensity); Her-2/misa: low (score 1+) Previous Pathology [id number] (right breast 12:00 retroareolar biopsy: stromal fibrosis; no tumor seen 5 9:10 AM [facility] Special and Immunohistochemical Stains Special Stain: There are no tasks to display for the given criteria. IHC: A8-2 E-cadherin: positive in both the glandular and single file carcinoma areas A30-2 ER Quantitative (%) A30-3 MI (Progesterone) Quantitative (%) A30-4 HER2/MISA Quantitative A30-5 HER2 FISH Extra Slide A30-6 HER2 FISH Extra Slide A30-7 HER2 FISH Extra Slide C1-5 Peng Cytokeratin AE1 AE3: negative for carcinoma D2-2 ER Quantitative (%) D2-3 MI (Progesterone) Quantitative (%) D2-4 HER2/MISA Quantitative D2-5 HER2 FISH Extra Slide D2-6 HER2 FISH Extra Slide D2-7 HER2 FISH Extra Slide All controls show appropriate reactivity. All immunohistochemist ry, in situ hybridization, and histochemical tests were developed by and are performed at the [facility], [address] [place] [address]. All tests reported here, except those addressing HER2 (breast) and PD-L1 expression as predictive markers, have not been cleared by or approved by the [place] Food and Drug Administration (FDA). The FDA has determined that such clearance or approval is not necessary. The laboratory is regulated under CLIA as qualified to perform high-complexity testing. The tests are used for clinical purposes. They should not be regarded as investigational or for research. This assay has not been validated on decalcified tissues. Results should be interpreted with caution given the likelihood of false negativity on decalcified specimens. 5 9:10 AM EDT [facility] Gross Description A. LEFT MASTECTOMY, SHORT STITCH SUPERIOR, LONG STITCH LATERAL (FRESH FOR PERMANENT) Specimen received fresh, placed in formalin labeled l eft mastectomy, short stitch superior, long stitch lateral and consists of a 117.9 g, 23.1 (medial-lateral) by 19.8 (superior-inferior ) by 4.7 (anterior-posterio r) left mastectomy. The castro-white overlying skin measures 22.5 x 12.0 cm with a 1.2 x 1.2 x 0.8 cm everted nipple. The skin surface bears no puckering, lesion or peau d'orange change. The superior margin is inked blue, inferior margin green and deep margin black. Upon sectioning the parenchyma demonstrates approximately 60-40 % adipose-fibrous ratio. There is an exceptionally dense, ill-defined, irregular mass of white fibrous tissue measuring 7.0 (medial-lateral) x 7.0 (superior-inferior ) x 2.8 cm (anterior-posterio r) with an embedded biopsy clip, centered 1:00 3.5 cm from the the nipple (gross photograph provided). The fibrous lesion spans from approximately 10:00 to 2:00 medially-laterally . No other discrete lesions are visualized. Corporate Operations Compliance Manager sections are submitted as follows: A1-A10: Fibrous lesion, superior-adjacent to biopsy clip, 3.5 cm from nipple at 01:00 A11-A12: Fibrous lesion with embedded biopsy clip and posterior margin A13: Inferior margin, closest proximity to biopsy clip, 8 cm A14-A19: Lesion, 1 cm intervals, from lateral to medial in ascending number of cassette A20: Anterior margin approximately 6 cm from biopsy clip A21-A22: Corporate Operations Compliance Manager sections, upper inner quadrant A23-A24: Corporate Operations Compliance Manager sections lower-inner quadrant A25-A26: Corporate Operations Compliance Manager sections lower outer quadrant A27-A28: Corporate Operations Compliance Manager sections upper outer quadrant A29: Nipple, serially sectioned A30: Additional sections, fibrous mass Cold Time: 40m Ebenezer Otero MD B. RIGHT MASTECTOMY, SHORT STITCH SUPERIOR, LONG STITCH LATERAL (FRESH FOR PERMANENT) Specimen is received fresh, placed in formalin labeled r ight mastectomy, short stitch superior long stitch lateral and consists of an 863.4 g, 18.3 cm (superior-inferior ) by 23.2 (medial-lateral end (by 4.6 (anterior-posterio r) cm right mastectomy. The overlying castro-white skin measures 23.1 x 12.1 cm with an everted 1.4 x 1.4 x 1.1 cm nipple. The skin shows no puckering, lesion, necrosis nor p'eau d'orange change. Upon sectioning the parenchyma is 60-40 % adipose/fibrous tissue composition. No discrete lesion is grossly appreciable. A biopsy clip is located at the 2 o'clock position, 2.2 cm in the center of the nipple within a dense, extensive, area of white fibrous tissue (gross photographs provided). Corporate Operations Compliance Manager sections are submitted as follows: B1: Section with embedded biopsy clip B2: Section immediately medial to biopsy clip B3: Section immediately lateral to biopsy clip B4: Anterior margin closest proximity biopsy clip (5.6 cm) B5: Inferior margin, closest proximity biopsy clip (5.5 cm) B6: Section immediately superior to biopsy clip B7-B8: Corporate Operations Compliance Manager sections, upper outer quadrant B9-B10: Corporate Operations Compliance Manager sections lower outer quadrant B11-B12: Corporate Operations Compliance Manager sections lower-inner quadrant B13-B14: Corporate Operations Compliance Manager sections, upper inner quadrant B15: Nipple serially sectioned B16: Posterior margin, closest proximity biopsy clip Cold Time: 31m Ebenezer Otero MD C. LEFT AXILLARY SENTINEL LYMPH NODE,MAX SIGNAL, 9X90 (FRESH FOR PERMANENT) The specimen is received fresh and placed in formalin, labeled l eft axillary sentinel node neck signal 9X90 , and consists of 3.1 x 2.8 x 1.1 cm aggregate of castro-yellow lobulated fibroadipose tissue. A 2.6 cm lymph node is identified. The lymph node is serially sectioned and entirely submitted in cassettes C1-C3. Cold Time: 0 JEANNA Do (ASCP) D. LEFT AXILLARY LYMPH NODE, SUSPICOUS, BLUE (FRESH FOR PERMANENT) The specimen is received fresh and placed in formalin, labeled l eft axillary lymph nodes suspicious, blue , and consists of a 4.8 x 4.2 x 1.2 cm aggregate of castro-yellow lobulated fibroadipose tissue. Two lymph nodes that range from 2.8-5.1 cm in greatest dimension are identified. The lymph nodes are entirely submitted as follows: D1-D3: One lymph node, serially sectioned D4-D9: Largest lymph node, serially sectioned Cold Time: 0 JEANNA Do (ASCP) E. ADDITONAL LEFT BREAST TISSUE (FRESH FOR PERMANENT) The specimen is received fresh and placed in formalin, labeled a dditional left breast tissue , and consists of a 7.2 x 4.6 x 2.1 cm aggregate of castro-yellow lobulated fibroadipose tissue. No skin is identified. Sectioning reveals a castro-yellow lobulated cut surface. No discrete masses are identified. Corporate Operations Compliance Manager sections are submitted in cassette E1. Cold Time: 0 JEANNA Do (ASCP) F. ADDITONAL SKIN, LEFT BREAST (FRESH FOR PERMANENT) The specimen is received fresh and placed in formalin, labeled a dditional skin left breast , and consists of a 6.2 x 3.3 x 2.1 cm aggregate of castro-pink grossly unremarkable skin with underlying fibroadipose tissue. No masses are identified. Corporate Operations Compliance Manager sections are submitted in cassette F1. JEANNA Do (ASCP) 5 9:10 AM EDT [facility] Note: A resident was involved in the service. I attest I examined the relevant preparations for the specimens and confirmed the diagnosis or interpretation. 9:10 AM EDT [facility] Tissue Left breast structure / Unknown 01/30/2025 11:18 AM EDT 01/30/2025 11:52 AM EDT Comment:Pre-op diagnosis: Infiltrating ductal carcinoma of left female breast [C50.912] Tissue specimen (specimen) Right breast structure / Unknown 01/30/2025 12:27 PM EDT 01/30/2025 12:58 PM EDT Comment:Pre-op diagnosis: Infiltrating ductal carcinoma of left female breast [C50.912] Tissue specimen (specimen) Specimen from sentinel lymph node / Unknown 01/30/2025 11:33 AM EDT 01/30/2025 12:58 PM EDT Comment:Pre-op diagnosis: Infiltrating ductal carcinoma of left female breast [C50.912] Tissue specimen (specimen) Structure of lymph node / Unknown 01/30/2025 11:03 AM EDT 01/30/2025 12:58 PM EDT Comment:Pre-op diagnosis: Infiltrating ductal carcinoma of left female breast [C50.912] Tissue specimen (specimen) Left breast structure / Unknown 01/30/2025 12:38 PM EDT 01/30/2025 12:58 PM EDT Comment:Pre-op diagnosis: Infiltrating ductal carcinoma of left female breast [C50.912] Tissue specimen (specimen) Left breast structure / Unknown 01/30/2025 12:56 PM EDT 01/30/2025 1:09 PM EDT Comment:Pre-op diagnosis: Infiltrating ductal carcinoma of left female breast [C50.912] us Gloria Vail MD LAB PATHOLOGY ORDERABLES Final R esult [facility] [address] [place] [address] * Peripheral IV (01/30/2025 10:00 AM EDT) Narrative Gely Arce CRNA - 01/30/2025 10:00 AM EDT Gely Arce CRNA 01/30/2025 10:08 AM Peripheral IV Date/Time: 01/30/2025 10:00 AM Placement Needle size: 20 G Location: wrist Local anesthetic: none Site prep: alcohol Technique: anatomical landmarks Attempts: 1 Lex Toro MD ANESTHESIA ORDERABLES Final R esult * MI AN ELECTIVE ENDOTRACHEAL AIRWAY, PB ANESTHESIA PLACEHOLDER (01/30/2025 9:48 AM EDT) Narrative Gely Arce CRNA - 01/30/2025 9:48 AM EDT Gely Arce CRNA 01/30/2025 10:07 AM Airway Date/Time: 01/30/2025 9:48 AM Reason: elective Airway not difficult General Information and Staff Patient location during procedure: OR CO DIRECTOR: Gely Arce CRNA Performed: TAMMY Patient Condition Indications for airway management: anesthesia Patient position: sniffing Final Airway Details Final airway type: endotracheal airway Successful airway: ETT Cuffed: yes Successful intubation technique: direct laryngoscopy Adjuncts used in placement: intubating stylet Endotracheal tube insertion site: oral Blade: Seb Blade size: #3 ETT size (mm): 7.0 Cormack-Lehane Classification: grade IIa - partial view of glottis Placement verified by: chest auscultation and capnometry Cuff volume (mL): 8 Measured from: lips ETT to lips (cm): 22 Additional Comments Atraumatic. No change to dentition. Lex Toro MD ANESTHESIA ORDERABLES Final R esult * NM Dermal Injection [place] Node (01/30/2025 9:43 AM EDT) Anatomical Region Laterality Modality Nuclear Medicine Impressions 01/30/2025 4:22 PM EDT Preoperative intradermal injections for sentinel lymph node surgery. CRITICAL RESULT: No. COMMUNICATION: Per this written report. By electronically signing this report, I, the attending physician, attest that I have personally reviewed the images/data for the above examination(s) and agree with the final edited report. Drafted by Timbo Hutchins MD on 01/30/2025 9:57 AM Final report signed by Yeison Ferro on 01/30/2025 4:22 PM Narrative 01/30/2025 4:22 PM EDT CLINICAL INDICATION: Breast cancer. TECHNIQUE: To assist with gamma probe sentinel lymph node surgery, two intradermal injections containing a total of 1.12 mCi of Tc-99m tilmanocept (Lymphoseek) were performed at the 1 o'clock position of the areolar border of the left breast, according to protocol and/or as specified in the patient's chart and/or as marked on the skin, by the staff cytotechnologist at 0943. COMPARISON/CORRELATION: Not applicable. FINDINGS: No imaging performed. No immediate complication. Procedure Note Yeison Ferro MD - 01/30/2025 CLINICAL INDICATION: Breast cancer. TECHNIQUE: To assist with gamma probe sentinel lymph node surgery, two intradermalinjections containing a total of 1.12 mCi of Tc-99m tilmanocept(Lymphoseek) were performed at the 1 o'clock position of the areolarborder of the left breast, according to protocol and/or as specified inthe patient's chart and/or as marked on the skin, by the nuclear medicinetechnologist at 0943. COMPARISON/CORRELATION: Not applicable. FINDINGS: No imaging performed. No immediate complication. IMPRESSION: Preoperative intradermal injections for sentinel lymph node surgery. CRITICAL RESULT: No. COMMUNICATION: Per this written report. By electronically signing this report, I, the attending physician, attjaronthat I have personally reviewed the images/data for the aboveexamination(s) and agree with the final edited report. Drafted by Timbo Hutchins MD on 01/30/2025 9:57 AM Final report signed by Yeison Ferro on 01/30/2025 4:22 PM Gloria Vail MD IM NM PROCEDURES Final Result from Last 3 Months Additional Health Concerns Active Problems Noted Date Diagnosed Date Autogenerated Problem 11/21/2024 Autogenerated Problem 03/15/2025 Insurance [facility] MEDIC[facility] Advance Directives * Full Code (Latest Code Status on File) Date Activated Date Inactivated Comments 01/30/2025 2:18 PM 01/31/2025 4:54 PM Question Answer Comments I have reviewed the capacity from the link above and, if needed, have updated to appropriate status: Yes Care Teams Manager Business Systems Relationship Specialty Start Date End Date Christopher Palacios MD [id number] PCP - General 11/20/24
--- OUTSIDE RECORDS SUMMARY | 2025-04-26 10:31 | XMS_ITS | Encounter Summary ---
Author Organization [facility] Address [address] [place] [address] Care Team Providers Care Sales Advisory Manager Name Role Phone Christopher Palacios MD Primary Care Provider [phone] Encounter Details Date Type Department Care Team (Late Contact Info) Description 11/03/2023 Orders Only External Location [address] [place] [phone] Provider, External Social History Tobacco Use [...] Hospital Encounter [facility] [address] [place] [address] Gloria Vail MD 800 [facility] [place] [address] [address] 05/08/2025 1:30 PM EST - 05/08/2025 3:30 PM EST Surgery [facility] [address] [place] [address] Gloria Vail MD 800 [facility] [place] Reynoso [address] [address] Left ax dissection [05056 (CPT )] 05/21/2025 3:00 PM EST Office Visit [facility] [address] [place] [address] Gloria Vail MD [address] [facility] [address] [place] [address] Scheduled Procedures Name Priority Associated Diagnoses Date/Ti me LYMPHADENECTOMY, AXILLARY Infiltrating ductal carcinoma of left female breast 05/08/2025 1:30 PM EST documented as of this encounter Procedures Procedure Name Priority Date/Time Associated Diagnosis Comments XR OUTSIDE IMAGES 11/03/2023 10:01 AM EDT documented in this encounter Results * XR OUTSIDE IMAGES (11/03/2023 10:01 AM EDT) Anatomical Region Laterality Modality Radiographic Sandra ging 11/03/2023 10:0 1 AM EDT us External Provider IMG XR PROCEDURES Final Result documented in this encounter Visit Diagnoses Not on filedocumented in this encounter Care Teams Sales Advisory Manager Relationship Specialty [place] [id number] PCP - General 11/20/24 documented as of this encounter
--- OUTSIDE RECORDS SUMMARY | 2025-04-26 10:31 | XMS_ITS | Encounter Summary ---
Author Organization [facility] Address [address] [place] [address] Care Team Providers Care Analytical Tech Name Role Phone Christopher Palacios MD Primary Care Provider [phone] Encounter Details Date Type Department Care Team (Late Contact Info) Description 10/25/2023 Orders Only External Location [address] [place] [phone] Provider, External Social History Tobacco Use [...] Hospital Encounter [facility] [address] [place] [address] Gloria Vail MD 800 [facility] [place] [address] [address] 05/08/2025 1:30 PM EST - 05/08/2025 3:30 PM EST Surgery [facility] [address] [place] [address] Gloria Vail MD 800 [facility] Hailey Reynoso [address] [address] Left ax dissection [52193 (CPT )] 05/21/2025 3:00 PM EST Office [facility] [address] [place] [address] Gloria Vail MD [address] [facility] [address] [place] [address] Scheduled Procedures Name Priority Associated Diagnoses Date/Ti me LYMPHADENECTOMY, AXILLARY Infiltrating ductal carcinoma of left female breast 05/08/2025 1:30 PM EST documented as of this encounter Procedures Procedure Name Priority Date/Time Associated Diagnosis Comments CT NEURO OUTSIDE IMAGES 10/25/2023 2:33 PM EDT documented in this encounter Results * CT NEURO OUTSIDE IMAGES (10/25/2023 2:33 PM EDT) Anatomical Region Laterality Modality Computed Tomogra phy 10/25/2023 2:33 PM EDT us External Provider IMG CT PROCEDURES Final Result documented in this encounter Visit Diagnoses Not on filedocumented in this encounter Care Teams Analytical Tech Relationship Specialty Start [place] [id number] PCP - General 11/20/24 documented as of this encounter
--- OUTSIDE RECORDS SUMMARY | 2025-04-26 10:31 | XMS_ITS | Encounter Summary ---
Author Organization [facility] Address [address] [place] [address] Care Team Providers Care Occupational Safety Specialist Name Role Phone Christopher Palacios MD Primary Care Provider + [phone] Encounter Details Date Type Department Care Team (Late Contact Info) Description 11/13/2024 Lab Requisition [facility] [address] [place] [phone] Vincenzo Garsia MD 800 [facility] [place] Reynoso [address] [phone] Unspecified lump in the right breast, unspecified quadrant Social History Tobacco Use Types Packs/Day Years [...] Hospital Encounter [facility] [address] [place] [phone] Gloria Vail MD 800 [facility] [place] Reynoso [address] [address] 05/08/2025 1:30 PM EST - 05/08/2025 3:30 PM EST Surgery [facility] [address] [place] [phone] Gloria Vail MD [address] [place] [address] Left ax dissection [79497 (CPT )] 05/21/2025 3:00 PM EST Office Visit [facility] [address] [facility], [address] [place] [address] Gloria Vail MD [address] [place] [address] Scheduled Procedures Name Priority Associated Diagnoses Date/Ti me LYMPHADENECTOMY, AXILLARY Infiltrating ductal carcinoma of left female breast 05/08/2025 1:30 PM EST documented as of this encounter Procedures Procedure Name Priority Date/Time Associated Diagnosis Comments SURGICAL PATHOLOGY CONSULT Routine 11/13/2024 10:43 AM EDT Unspecified lump in the right breast, unspecified quadrant documented in this encounter Results * Surgical Pathology Consult (11/13/2024 10:43 AM EDT) Case Report Sugical Pathology Consult Case: [id number] Authorizing Provider: Vincenzo Garsia MD Collected: 11/13/2024 1043 Ordering Location: [facility] Lab Received: 11/13/2024 1043 Pathologist: Reyna Denis MD Specimen: Breast, Right, [id number] 12:05 PM EDT [facility] Final Diagnosis OUTSIDE BIOPSY [id number] A-C, 10/24/24, MULTIPLE SITES: A. BREAST, RIGHT RETROAREOLAR 12 O'CLOCK, CORE BIOPSY (A): - STROMAL FIBROSIS WITH CHRONIC INFLAMMATION - NO EVIDENCE OF ATYPICAL HYPERPLASIA OR CARCINOMA A. BREAST, LEFT 12 O'CLOCK, CORE BIOPSY (B): - INVASIVE GRADE 2 DUCTAL CARCINOMA - LARGEST TUMOR SIZE: 9 MM - ANCILLARY TESTING: - ER: positive (>95%, 3+ intensity) - GA: positive (>95%, 3+ intensity) - Her-2/misa: negative (score 0) A. BREAST, LEFT 2 O'CLOCK, CORE BIOPSY (C): - INVASIVE GRADE 1 DUCTAL CARCINOMA - LARGEST TUMOR SIZE: 15 MM - ANCILLARY TESTING: - ER: positive (>95%, 2+ intensity) - GA: positive (80%, 3+ intensity) - Her-2/misa: low (score 1+) 12:05 PM EDT [facility] at 1205 EDT Clinical Information N63.10 - Unspecified lump in the right breast, unspecified quadrant [ICD-10-CM] 12:05 PM EDT [facility] Special and Immunohistochemical Stains The following immunostains were performed at the outside institution and reviewed here: - ER, GA, Her2 for both mass (see above) - e-cadherin (both masses): positive 12:05 PM EDT [facility] Gross Description A. [id number] Received along with a corresponding pathology report from [facility] are 17 slide(s) labeled outside case: [id number] collected on 10/24/2024. 12:05 PM EDT [facility] Note: A resident was involved in the service. I attest I examined the relevant preparations for the specimens and confirmed the diagnosis or interpretation. 12:05 PM EDT [facility] Tissue Right breast structure / Unknown 11/13/2024 10:43 AM EDT 11/13/2024 10:43 AM EDT us Vincenzo Garsia MD LAB PATHOLOGY ORDERABLES F inal Result [facility] [address] [place] [address] documented in this encounter Visit Diagnoses Diagnosis Unspecified lump in the right breast, unspecified quadrant Infiltrating ductal carcinoma of left female breast documented in this encounter Care Teams Occupational Safety Specialist Relationship Specialty [place] [id number] PCP - General 11/20/24 documented as of this encounter
--- OUTSIDE RECORDS SUMMARY | 2025-04-26 10:31 | XMS_ITS | Encounter Summary ---
Author Organization [facility] Address [address] [place] [address] Care Team Providers Care Pigment Furnace Tender Name Role Phone Christopher Palacios MD Primary Care Provider [phone] Encounter Details Date Type Department Care Team (Latest Contact Info) Description 03/12/2025 Travel Social History Tobacco Use Types Packs/Day Years [...] Hospital Encounter [facility] [address] [place] [address] Gloria Vail MD 800 [facility] [place] Reynoso [address] [phone] 05/08/2025 1:30 PM EST - 05/08/2025 3:30 PM EST Surgery [facility] [address] [place] [address] Gloria Vail MD 800 [facility] [place] Reynoso [address] [phone] Left ax dissection [28057 (CPT )] 05/21/2025 3:00 PM EST Office Visit [facility] [address] [facility], [address] [place] [address] Gloria Vail MD 800 [facility] Ha[address] [place] [address] Scheduled Procedures Name Priority Associated Diagnoses Date/Ti me LYMPHADENECTOMY, AXILLARY Infiltrating ductal carcinoma of left female breast 05/08/2025 1:30 PM EST documented as of this encounter Goals Goal Patient Goal Type Associated Problems Recent Progress Patient-Stated? Author Autogenerat ed Goal Care Plan Autogenerated Problem No Sukumar Trin[place] documented as of this encounter Visit Diagnoses Not on filedocumented in this encounter Additional Health Concerns Active Problems Noted Date Diagnosed Date Autogenerated Problem 11/21/2024 Assessment Noted Time A fall risk assessment has been complete d for the patient 02/20/2025 11:35 AM EDT A Body Mass Index follow-up plan has been documented for the patient 03/14/2025 10:41 PM EST documented as of this encounter Care Teams Pigment Furnace Tender Relationship Specialty [place] [id number] PCP - General 11/20/24 documented as of this encounter
--- OUTSIDE RECORDS SUMMARY | 2025-04-26 10:31 | XMS_ITS | Encounter Summary ---
Author Organization [facility] Address [address] [place] [id number] Care Team Providers Care Bridge Operator Name Role Phone Christopher Palacios MD Primary Care Provider + [phone] Reason for Visit * Reason Onset Date Comments Social Work/navigation Follow-up 03/11/2025 Encounter Details Date Type Department Care Team ([facility] st Contact Info) Description 03/11/2025 Telephone [facility] [address] [facility], [address]nd [place] [address] Thalia Chambers, [place] [address] Social Work/navigation Follow-up Social History Tobacco Use Types Packs/Day Years [...] on file documented as of this encounter Miscellaneous Notes * Telephone Encounter - Thalia Chambers LCSW - 03/11/2025 2:34 PM EST Encounter Type: Phone Call Disease Status: Established Patient Clinic Location: [facility] Disease Type: Breast Services Provided: Resource Navigation Education Provided: Transportation Intervention Level: 2 Units (1 unit = 15 minutes): 1 Narrative: Patient contacted SW to confirm details of ride previously scheduled for tomorrow 03/12. SW informedof federated schedule and tentative picked edge sewing machine operator time. Patient thanked SW for the info. SW remains available ongoing. documented in this encounter Plan of Treatment Upcoming Encounters Date Type Department Care Team (Late st Contact Info) Description 05/08/2025 1:30 PM EST Hospital Encounter [facility] [address] [place] [address] Gloria Vail MD [address] [address] 05/08/2025 1:30 PM EST - 05/08/2025 3:30 PM EST Surgery [facility] [address] [place] [address] Gloria Vail MD [address] [address] Left ax dissection [43544 (CPT )] 05/21/2025 3:00 PM EST Office Visit [facility] [address] [facility], [address]nd [place] [address] Gloria Vail MD [address] [address] Scheduled Procedures Name Priority Associated Diagnoses [...] plan has been documented for the patient 01/31/2025 1:21 PM EDT documented as of this encounter Care Teams Bridge Operator Relationship Specialty Start Date End Date [place], Christopher, [place] [phone] PCP - General 11/20/24 documented as of this encounter
--- OUTSIDE RECORDS SUMMARY | 2025-04-26 10:31 | XMS_ITS | Encounter Summary ---
Author Organization [facility] Address [address] [place] [address] Care Team Providers Care Hospice Care Consultant Name Role Phone Christopher Palacios MD Primary Care Provider [phone] Encounter Details Date Type Department Care Team (Late Contact Info) Description 10/25/2023 Orders Only External Location [address] [place] [phone] Provider, External Social History Tobacco Use [...] Hospital Encounter [facility] [address] [place] [address] Gloria Vail MD 800 [facility] [place] [address] [address] 05/08/2025 1:30 PM EST - 05/08/2025 3:30 PM EST Surgery [facility] [address] [place] [address] Gloria Vail MD 800 [facility] Hailey Reynoso [address] [address] Left ax dissection [48252 (CPT )] 05/21/2025 3:00 PM EST Office Visit [facility] [address] [place] [address] Gloria Vail MD [address] [facility] [address] [place] [address] Scheduled Procedures Name Priority Associated Diagnoses Date/Ti me LYMPHADENECTOMY, AXILLARY Infiltrating ductal carcinoma of left female breast 05/08/2025 1:30 PM EST documented as of this encounter Procedures Procedure Name Priority Date/Time Associated Diagnosis Comments CT NEURO OUTSIDE IMAGES 10/25/2023 2:28 PM EDT documented in this encounter Results * CT NEURO OUTSIDE IMAGES (10/25/2023 2:28 PM EDT) Anatomical Region Laterality Modality Computed Tomogra phy 10/25/2023 2:28 PM EDT us External Provider IMG CT PROCEDURES Final Result documented in this encounter Visit Diagnoses Not on filedocumented in this encounter Care Teams Hospice Care Consultant Relationship Specialty Start [place] [id number] PCP - General 11/20/24 documented as of this encounter
--- OUTSIDE RECORDS SUMMARY | 2025-04-26 10:31 | XMS_ITS | Encounter Summary ---
Author Organization [facility] Address [address] [place] [address] Care Team Providers Care Oceanology Teacher Name Role Phone Christopher Palacios MD Primary Care Provider [phone] Encounter Details Date Type Department Care Team (Late Contact Info) Description 07/13/2024 Orders Only External Location [address] [place] [phone] Provider, External Social History Tobacco Use [...] Hospital Encounter [facility] [address] [place] [address] Gloria Vail MD 800 [facility] [place] [address] [phone] 05/08/2025 1:30 PM EST - 05/08/2025 3:30 PM EST Surgery [facility] [address] [place] [address] Gloria Vail MD 800 [facility] Hailey Reynoso [address] [phone] Left ax dissection [96713 (CPT )] 05/21/2025 3:00 PM EST Office Visit [facility] [address] [place] [address] Gloria Vail MD [address] [facility] [address] [place] [address] Scheduled Procedures Name Priority Associated Diagnoses Date/Ti me LYMPHADENECTOMY, AXILLARY Infiltrating ductal carcinoma of left female breast 05/08/2025 1:30 PM EST documented as of this encounter Procedures Procedure Name Priority Date/Time Associated Diagnosis Comments MAMMOGRAPHY OUTSIDE IMAGES 07/13/2024 4:05 PM EST documented in this encounter Results * MAMMOGRAPHY OUTSIDE IMAGES (07/13/2024 4:05 PM EST) Anatomical Region Laterality Modality Breast Mammography 07/13/2024 4:05 PM EST us External Provider IMG BI PROCEDURES Final Result documented in this encounter Visit Diagnoses Not on filedocumented in this encounter Care Teams Oceanology Teacher Relationship Specialty Start [place] [id number] PCP - General 11/20/24 documented as of this encounter
--- OUTSIDE RECORDS SUMMARY | 2025-04-26 10:31 | XMS_ITS | Encounter Summary ---
Author Organization [facility] Address [address] [id number] Care Team Providers Care Toddler Teacher Name Role Phone Christopher Palacios MD Primary Care Provider + [phone] Reason for Visit * Reason Comments Social Work/navigation Follow-up Encounter Details Date Type Department Care Team ([facility] st Contact Info) Description 03/12/2025 Social Work [facility] [address] [facility], 2nd [place] [address] Thalia Chambers, [place] [address] Social History Tobacco Use Types Packs/Day Years [...] as of this encounter Miscellaneous Notes * Progress Notes - Thalia Chambers, PLAYER SERVICES REPRESENTATIVE - 03/12/2025 4:23 PM EST Encounter Type: In Person Visit Disease Status: Established Patient Clinic Location: [facility] Disease Type: Breast Services Provided: Gift / Gas Card Gift Card Type: [employer] Gift Card Amount: 100 Education Provided: Transportation Intervention Level: 3 Units (1 unit = 15 minutes): 2 Narrative: As previously discussed, SW provided patient with [facility] gift card to assist with expense of [employer]. Patient reports doing well at this time. SW assisted with contact [employer] upon visit completion for return shredder picker. documented in this encounter Plan of Treatment Upcoming Encounters Date Type Department Care Team ([facility] st Contact Info) Description 05/08/2025 1:30 PM EST Hospital Encounter [facility] [address] [place] [address] Gloria Vail MD 800 [facility] [address] [address] 05/08/2025 1:30 PM EST - 05/08/2025 3:30 PM EST Surgery [facility] [address] [place] [address] Gloria Vail MD [address] [address] Left ax dissection [[id number] (CPT )] 05/21/2025 3:00 PM EST Office Visit [facility] [address] [facility], 2nd [place] [address] Gloria Vail MD [address] [address] Scheduled Procedures Name Priority Associated [...] documented as of this encounter Care Teams Toddler Teacher Relationship Specialty Start Date End Date Christopher Palacios MD [id number] PCP - General 11/20/24 documented as of this encounter
--- OUTSIDE RECORDS SUMMARY | 2025-04-26 10:31 | XMS_ITS | Encounter Summary ---
Author Organization [facility] Address [address] [place] [address] Care Team Providers Care Resistance Welder Name Role Phone Christopher Palacios MD Primary Care Provider [phone] Encounter Details Date Type Department Care Team (Late Contact Info) Description 11/18/2023 Orders Only External Location [address] [place] [address] Provider, External Social History Tobacco Use [...] Hospital Encounter [facility] RO[facility] 800 [place] [address] Gloria Vail MD 800 [facility] [place] [address] [address] 05/08/2025 1:30 PM EST - 05/08/2025 3:30 PM EST Surgery [facility] RO[facility] 800 [place] [address] Gloria Vail MD 800 [facility] Hailey Reynoso [address] [address] Left ax dissection [[id number] (CPT )] 05/21/2025 3:00 PM EST Office Visit [facility] [address], 2nd [place] [address] Gloria Vail MD 800 Julia Spears [facility] [address] [place] [address] Scheduled Procedures Name Priority Associated Diagnoses Date/Ti me LYMPHADENECTOMY, AXILLARY Infiltrating ductal carcinoma of left female breast 05/08/2025 1:30 PM EST documented as of this encounter Procedures Procedure Name Priority Date/Time Associated Diagnosis Comments MR NEURO OUTSIDE IMAGES 11/18/2023 5:28 PM EDT documented in this encounter Results * MR NEURO OUTSIDE IMAGES (11/18/2023 5:28 PM EDT) Anatomical Region Laterality Modality Magnetic Resonan ce 11/18/2023 5:28 PM EDT us External Provider IMG MRI PROCEDURES Final Resul t documented in this encounter Visit Diagnoses Not on filedocumented in this encounter Care Teams Resistance Welder Relationship Specialty Start [place] [id number] PCP - General 11/20/24 documented as of this encounter
--- OUTSIDE RECORDS SUMMARY | 2025-04-26 10:31 | XMS_ITS | Encounter Summary ---
Author Organization [facility] Address [address] [place] [address] Care Team Providers Care Guest Services Associate Name Role Phone Christopher Palacios MD Primary Care Provider [phone] Encounter Details Date Type Department Care Team (Late Contact Info) Description 08/01/2024 Orders Only External Location [address] [place] [address] Provider, External Social History Tobacco Use [...] Hospital Encounter [facility] O[facility]ATING ROOM 800 [place] [address] Gloria Vail MD 800 [facility] [place] [address] [address] 05/08/2025 1:30 PM EST - 05/08/2025 3:30 PM EST Surgery [facility] ROOM [address] [place] [address] Gloria Vail MD 800 [facility] Hailey Reynoso [address] [address] Left ax dissection [[id number] (CPT )] 05/21/2025 3:00 PM EST Office Visit [facility] [address], 2nd [place] [address] Gloria Vail MD 800 Julia Spears [facility] [address] [place] [address] Scheduled Procedures Name Priority Associated Diagnoses Date/Ti me LYMPHADENECTOMY, AXILLARY Infiltrating ductal carcinoma of left female breast 05/08/2025 1:30 PM EST documented as of this encounter Procedures Procedure Name Priority Date/Time Associated Diagnosis Comments US BREAST OUTSIDE IMAGES 08/01/2024 2:30 PM EDT documented in this encounter Results * US BREAST OUTSIDE IMAGES (08/01/2024 2:30 PM EDT) Anatomical Region Laterality Modality Breast Mammography 08/01/2024 2:30 PM EDT us External Provider IMG BI PROCEDURES Final Result documented in this encounter Visit Diagnoses Not on filedocumented in this encounter Care Teams Guest Services Associate Relationship Specialty Start [place] [id number] PCP - General 11/20/24 documented as of this encounter
--- OUTSIDE RECORDS SUMMARY | 2025-04-26 10:31 | XMS_ITS | Encounter Summary ---
Author Organization [facility] Address [address] [place] [address] Care Team Providers Care Car Servicer Name Role Phone Christopher Palacios MD Primary Care Provider [phone] Encounter Details Date Type Department Care Team (Late Contact Info) Description 10/25/2023 Orders Only External Location [address] [place] [address] Provider, External Social History Tobacco Use [...] Hospital Encounter [facility] A O[facility]ATING ROOM 800 [place] [address] Gloria Vail MD 800 [facility] [place] [address] [address] 05/08/2025 1:30 PM EST - 05/08/2025 3:30 PM EST Surgery [facility] A [facility] ROOM [address] [place] [address] Gloria Vail MD 800 [facility] Hailey Reynoso [address] [address] Left ax dissection [[id number] (CPT )] 05/21/2025 3:00 PM EST Office Visit [facility] [address], [address]nd [place] [address] Gloria Vail MD 800 Julia Spears [facility] [address] [place] [address] Scheduled Procedures Name Priority Associated Diagnoses Date/Ti me LYMPHADENECTOMY, AXILLARY Infiltrating ductal carcinoma of left female breast 05/08/2025 1:30 PM EST documented as of this encounter Procedures Procedure Name Priority Date/Time Associated Diagnosis Comments CT NEURO OUTSIDE IMAGES 10/25/2023 2:26 PM EDT documented in this encounter Results * CT NEURO OUTSIDE IMAGES (10/25/2023 2:26 PM EDT) Anatomical Region Laterality Modality Computed Tomogra phy 10/25/2023 2:26 PM EDT us External Provider IMG CT PROCEDURES Final Result documented in this encounter Visit Diagnoses Not on filedocumented in this encounter Care Teams Car Servicer Relationship Specialty Start [place] [id number] PCP - General 11/20/24 documented as of this encounter
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
--- OUTSIDE RECORDS SUMMARY | 2025-04-26 10:31 | XMS_ITS | Encounter Summary ---
Author Organization [facility] Address [address] [place] [address] Care Team Providers Care Deputy Grand Jury Name Role Phone Christopher Palacios MD Primary Care Provider [phone] Encounter Details Date Type Department Care Team (Late Contact Info) Description 10/24/2024 Orders Only External Location [address] [place] [address] Provider, External Social History Tobacco Use [...] Hospital Encounter [facility] A OPERATING ROOM 800 [place] [address] Gloria Vail MD 800 [facility] [place] [address] [address] 05/08/2025 1:30 PM EST - 05/08/2025 3:30 PM EST Surgery [facility] A OPERATING ROOM [address] [place] [address] Gloria Vail MD 800 [facility] Hailey Reynoso [address] [address] Left ax dissection [[id number] (CPT )] 05/21/2025 3:00 PM EST Office Visit [facility] [address], 2nd [place] [address] Gloria Vail MD 800 Julia Spears [facility] [address] [place] [address] Scheduled Procedures Name Priority Associated Diagnoses Date/Ti me LYMPHADENECTOMY, AXILLARY Infiltrating ductal carcinoma of left female breast 05/08/2025 1:30 PM EST documented as of this encounter Procedures Procedure Name Priority Date/Time Associated Diagnosis Comments US BREAST OUTSIDE IMAGES 10/24/2024 9:27 AM EDT documented in this encounter Results * US BREAST OUTSIDE IMAGES (10/24/2024 9:27 AM EDT) Anatomical Region Laterality Modality Breast Mammography 10/24/2024 9:27 AM EDT us External Provider IMG BI PROCEDURES Final Result documented in this encounter Visit Diagnoses Not on filedocumented in this encounter Care Teams Deputy Grand Jury Relationship Specialty Start [place] [id number] PCP - General 11/20/24 documented as of this encounter
--- OUTSIDE RECORDS SUMMARY | 2025-04-26 10:31 | XMS_ITS | Encounter Summary ---
Author Organization [facility] Address [address] [place] [address] Care Team Providers Care Business Operations Consultant Name Role Phone Christopher Palacios MD Primary Care Provider [phone] Encounter Details Date Type Department Care Team (Late Contact Info) Description 03/12/2025 Orders Only Ch Radiology Virtual Dept. [address] [place] [phone] Yeison Ferro MD [address] [place] [phone] Social History Tobacco Use Types Packs/Day Years [...] Hospital Encounter [facility] A OPERATING ROOM 800 [place] [address] Gloria Vail MD 800 [facility] [address] [address] 05/08/2025 1:30 PM EST - 05/08/2025 3:30 PM EST Surgery [facility] A OPERATING ROOM 800 [place] [address] Gloria Vail MD 800 [facility] Hailey Reynoso [facility] [address] [place] [address] Left ax dissection [[id number] (CPT )] 05/21/2025 3:00 PM EST Office Visit [facility] Breast [facility] [address] [facility], [address]nd [place] [address] Gloria Vail MD 800 [facility] Hailey Strongrickson [facility] [address] [place] [address] Scheduled Procedures Name Priority Associated [...] documented as of this encounter Care Teams Business Operations Consultant Relationship Specialty Start [place] [id number] PCP - General 11/20/24 documented as of this encounter
--- OUTSIDE RECORDS SUMMARY | 2025-04-26 10:31 | XMS_ITS | Encounter Summary ---
Author Organization [facility] Address [address] [place] [address] Care Team Providers Care Seismic Survey Assistant Name Role Phone Christopher Palacios MD Primary Care Provider [phone] Encounter Details Date Type Department Care Team (Late Contact Info) Description 08/01/2024 Orders Only External Location [address] [place] [address] Provider, External Social History Tobacco Use [...] Hospital Encounter [facility] A OPERATING ROOM 800 [place] [address] Gloria Vail MD 800 [facility] [place] [address] [address] 05/08/2025 1:30 PM EST - 05/08/2025 3:30 PM EST Surgery [facility] A OPERATING ROOM [address] [place] [address] Gloria Vail MD [address] [facility] Hailey Reynoso [address] [address] Left ax dissection [[id number] (CPT )] 05/21/2025 3:00 PM EST Office Visit [facility] [address], [address]nd [place] [address] Gloria Vail MD 800 [address] Spears [facility] [address] [place] [address] Scheduled Procedures Name Priority Associated Diagnoses Date/Ti me LYMPHADENECTOMY, AXILLARY Infiltrating ductal carcinoma of left female breast 05/08/2025 1:30 PM EST documented as of this encounter Procedures Procedure Name Priority Date/Time Associated Diagnosis Comments US BREAST OUTSIDE IMAGES 08/01/2024 2:41 PM EDT documented in this encounter Results * US BREAST OUTSIDE IMAGES (08/01/2024 2:41 PM EDT) Anatomical Region Laterality Modality Breast Mammography 08/01/2024 2:41 PM EDT us External Provider IMG BI PROCEDURES Final Result documented in this encounter Visit Diagnoses Not on filedocumented in this encounter Care Teams Seismic Survey Assistant Relationship Specialty Start [place] [id number] PCP - General 11/20/24 documented as of this encounter
--- OUTSIDE RECORDS SUMMARY | 2025-04-26 10:31 | XMS_ITS | Encounter Summary ---
Author Organization [facility] Address [address] [place] [address] Care Team Providers Care Retail Merchandiser Technician Name Role Phone Christopher Palacios MD Primary Care Provider [phone] Encounter Details Date Type Department Care Team (Late Contact Info) Description 10/24/2024 Orders Only External Location [address] [place] [phone] Provider, External Social History Tobacco Use [...] Hospital Encounter [facility] A OPERATING ROOM [address] [place] [address] Gloria Vail MD 800 [facility] [place] [address] [address] 05/08/2025 1:30 PM EST - 05/08/2025 3:30 PM EST Surgery [facility] A OPERATING ROOM [address] [place] [address] Gloria Vail MD 800 [facility] Hailey Reynoso [address] [address] Left ax dissection [[id number] (CPT )] 05/21/2025 3:00 PM EST Office Visit [facility] [address], [address] [place] [address] Gloria Vail MD 800 [address] Spears [facility] [address] [place] [address] Scheduled Procedures Name Priority Associated Diagnoses Date/Ti me LYMPHADENECTOMY, AXILLARY Infiltrating ductal carcinoma of left female breast 05/08/2025 1:30 PM EST documented as of this encounter Procedures Procedure Name Priority Date/Time Associated Diagnosis Comments MAMMOGRAPHY OUTSIDE IMAGES 10/24/2024 10:45 AM EDT documented in this encounter Results * MAMMOGRAPHY OUTSIDE IMAGES (10/24/2024 10:45 AM EDT) Anatomical Region Laterality Modality Breast Mammography 10/24/2024 10:4 5 AM EDT us External Provider IMG BI PROCEDURES Final Result documented in this encounter Visit Diagnoses Not on filedocumented in this encounter Care Teams Retail Merchandiser Technician Relationship Specialty Start [place] [id number] PCP - General 11/20/24 documented as of this encounter
--- NOTE | 2025-04-26 10:32 | NM_ITS ---
FINAL REPORT CLINICAL HISTORY: INFILTRATING DUCTAL CARCINOMA COMPARISON: None FINDINGS: EXISTING RELEVANT IMAGING STUDIES: No prior bone scan or relevant imaging TECHNIQUE: The patient was injected with 24.8 mCi of technetium 99-[id number]. 3 hour delayed images were obtained. FINDINGS: There is normal tracer activity in the axial skeleton. There is abnormal uptake in the region of the right patella, that is most likely secondary to patellofemoral osteoarthritic disease. There is increased uptake in the right mandible and maxilla, that is most likely secondary to odontogenic disease. No abnormal tracer activity is identified to suggest occult fracture or metastatic disease. IMPRESSION: 1. Areas of increased uptake that are likely secondary to osteoarthritic disease or odontogenic disease as described above. 2. No findings to indicate metastatic bone disease. Reviewed, Interpreted and Dictated by Evert Gordillo MD Transcribed by Bessy Ayala Authenticated and [facility]
[2025-04-26] MEDS: ISOTOPE MDP (BONE);1 DOSE VIAL IV (14:39)
== END 2025-04-26 23:59 | disposition home or self-care (01) ==
LOC: RAD 10:27
PROVIDERS: PCP Family Medicine; Visit Provider Student in an Organized Health Care Education/Training Program
DX: C50.912 Malignant neoplasm of unspecified site of left female breast (principal); R93.7 Abnormal findings on diagnostic imaging of other parts of musculoskeletal system
CPT/HCPCS: 78306; A9503

== ENCOUNTER 2025-05-03 12:42 | Outpatient (CLI) | payer MEDICARE, SELFPAY ==
--- OUTSIDE RECORDS SUMMARY | 2025-03-12 11:30 | XMS_ITS | Encounter Summary ---
Author Organization [facility] Address [address] [place] [address] Care Team Providers Care Multiple Games Dealer Name Role Phone Christopher Palacios MD Primary Care Provider [phone] Reason for Referral * Imaging (Urgent) - Authorized Specialty Diagnoses / Procedures Referred By Contac t Referred To Contact Diagnoses Infiltrating ductal carcinoma of left female breast Procedures NM Bone Scan Whole Body Gloria Vail MD [address] [address] Phone: tel: fax: Referral ID Status Reason Start Date Expiration Date V isits Requested Visits Authorized [id number] Authorized 03/12/2025 09/11/2026 2 2 * Imaging (Urgent) - Authorized Specialty Diagnoses / Procedures Referred By Contac t Referred To Contact Diagnoses Infiltrating ductal carcinoma of left female breast Procedures CT Chest w IV Contrast Gloria Vail MD [address] [address] Phone: tel: fax: Referral ID Status Reason Start Date Expiration Date V isits Requested Visits Authorized [id number] Authorized 03/12/2025 09/11/2026 1 1 * Imaging (Urgent) - Authorized Specialty Diagnoses / Procedures Referred By Contac t Referred To Contact Diagnoses Infiltrating ductal carcinoma of left female breast Procedures CT Abdomen Pelvis w IV Contrast Gloria Vail MD [address] [facility] [place] [facility] [address] [place] [address] Phone: tel: fax: Referral ID Status Reason Start Date Expiration Date V isits Requested Visits Authorized [id number] Authorized 03/12/2025 09/11/2026 1 1 Reason for Visit * Reason Comments Follow-up Encounter Details Date Type Department Care Team (Late st Contact Info) Description 03/12/2025 11:30 AM EST Office Visit [facility] [address] [facility] [place] [id number] Gloria Vail MD [address] [facility] [place] [facility] [address] [place] [address] Infiltrating ductal carcinoma of left female breast (Primary Dx) Social History Tobacco Use Types Packs/Day Years Used Date Smoking Tobacco: Every Day Cigarettes Smokeless Tobacco: Never Alcohol Use Standard Drinks/Week Comments Yes 0 (1 standard drink = 0.6 oz pur e alcohol) a couple beers a week Comments No Sex and Gender Information Value Date Recorded Sex Assigned at Not on file Legal Sex Female 10:36 AM EDT Gender Identity Not on file Sexual Orientation Not on file documented as of this encounter Last Filed Vital Signs Vital Sign Reading Time Taken Comments Blood Pressure 139/83 03/12/2025 12:21 PM EST Pulse 89 03/12/2025 12:21 PM EST Temperature 36.7 C (98 F) 03/12/2025 12:21 PM EST Respiratory Rate 18 03/12/2025 12:21 PM EST Oxygen Saturation 97% 03/12/2025 12:21 PM EST Inhaled Oxygen Concentration - - Weight 80.1 kg (176 lb 9.4 oz) 03/12/2025 12:21 PM EST Height 177.8 cm (5' 10 ) 03/12/2025 12:21 PM EST Body Mass Index 25.34 03/12/2025 12:21 PM EST documented in this encounter Functional Status * BP Answer Date of Assessment Author 139/83 03/12/2025 12:21 PM Chayo Nunez RN * Temp Answer Date of Assessment Author 98 03/12/2025 12:21 PM Chayo Nunez RN * Temp src Answer Date of Assessment Author Oral 03/12/2025 12:21 PM Chayo Nunez, RN * Pulse Answer Date of Assessment Author 89 03/12/2025 12:21 PM Chayo Nunez, RN * Resp Answer Date of Assessment Author 18 03/12/2025 12:21 PM Chayo Nunez RN * SpO2 Answer Date of Assessment Author 97 03/12/2025 12:21 PM Chayo Nunez RN * Height Answer Date of Assessment Author 70 03/12/2025 12:21 PM Chayo Nunez RN * Weight Answer Date of Assessment Author 2825.42 03/12/2025 12:21 PM Chayo Nunez RN * BMI (Calculated) Answer Date of Assessment Author 25.4 03/12/2025 12:21 PM Chayo Nunez RN * Percent Excess Weight Loss Answer Date of Assessment Author 0 03/12/2025 12:21 PM Chayo Nunez RN * Total Weight Change Percent Answer Date of Assessment Author 2222 03/12/2025 12:21 PM Chayo Nunez, RN * Weight Change Since Preop Answer Date of Assessment Author 80.08 03/12/2025 12:21 PM Chayo Nunez RN * Initial Excess Weight Answer Date of Assessment Author -68.04 03/12/2025 12:21 PM Chayo Nunez RN * IBW in lbs (Bariatric) Answer Date of Assessment Author 150 03/12/2025 12:21 PM Chayo Nunez RN * Weight Change Since Last Visit Answer Date of Assessment Author 80.08 03/12/2025 12:21 PM Chayo Nunez RN * IBW in kg (Bariatric) Answer Date of Assessment Author 68.04 03/12/2025 12:21 PM Chayo Nunez, RN * Percent of IBW Answer Date of Assessment Author 4,152.59 03/12/2025 12:21 PM Chayo Nunez RN * EBW (kg) Answer Date of Assessment Author 2,823.49 03/12/2025 12:21 PM Chayo Nunez RN * EBW (lbs) Answer Date of Assessment Author 2,816.05 03/12/2025 12:21 PM Chayo Nunez RN * Distress Thermometer Score Question Answer Date of Assessment Author Appointment Type Other 03/12/2025 12:25 PM Chayo Nunez RN Based on the past week, please select the number that best describes how much distress you have had. 0 being none and 10 being the most extreme. 0 03/12/2025 12:25 PM Yamel Nunez RN * Practical Concerns Question Answer Date of Assessment Author Taking care of myself 0 03/12/2025 12:25 PM Chayo Nunez RN Housing 0 03/12/2025 12:25 PM Chayo Lopez, RN Finances 0 03/12/2025 12:25 PM Chayo Lopez, RN Transportation 0 03/12/2025 12:25 PM Chayo Ashley, RN Work 0 03/12/2025 12:25 PM Chayo Lopez, [place] Treatment Decisions 0 03/12/2025 12:25 PM Chayo Singer RN Taking care of others 0 03/12/2025 12:25 PM Chayo Nunez, education program manager No 03/12/2025 12:25 PM Chayo Lopez, RN Insurance 0 03/12/2025 12:25 PM Chayo Lopez, adjunct spanish instructorhealthcare administration intern 0 03/12/2025 12:25 PM Chayo Lopez, RN Having enough food 0 03/12/2025 12:25 PM Chayo Jean shore worker to medicine 0 03/12/2025 12:25 PM Chayo Jean, RN * Social Concerns Question Answer Date of Assessment Author Relationship with children 0 03/12/2025 12: 25 PM Chayo Nunez RN Relationship with spouse or partner 0 03/12/2025 12:25 PM Yamel Nunez RN Ability to have children 0 03/12/2025 12:25 PM Chayo Nunez RN Relationship with family members 0 03/12/2025 12:25 PM Yamel Nunez RN Communication with health ca re team 0 03/12/2025 12:25 PM Yamel Nunez, RN Relationship with friends or coworkers 0 03/12/2025 12:25 PM Yamel Nunez RN Prejudice or discrimination 0 03/12/2025 12 :25 PM Chayo Nunez RN * Emotional Concerns Question Answer Date of Assessment Author Sadness or Depression 0 03/12/2025 12:25 PM Chayo Nunez RN Fear 0 03/12/2025 12:25 PM Chayo Lopez RN Worry or anxiety 0 03/12/2025 12:25 PM Chayo Nunez RN Loss of interest or enjoyment 0 03/12/2025 12:25 PM Chayo Nunez RN Grief or loss 0 03/12/2025 12:25 PM Chayo Gonzalez RN Loneliness 0 03/12/2025 12:25 PM Chayo Lopez RN Anger 0 03/12/2025 12:25 PM Chayo Lopez RN Changes in appearance 0 03/12/2025 12:25 PM Chayo Nunez RN Feelings of worthlessness or being a burden 0 03/12/2025 12:25 PM Yamel Nunez RN * Spiritual/Orthodoxy Concerns Question Answer Date of Assessment Author Sense of meaning or purpose 0 03/12/2025 12 :25 PM Chayo Nunez RN Change in shirley or beliefs 0 03/12/2025 12: 25 PM Chayo Nunez RN , dying or afterlife 0 03/12/2025 12:2 5 PM Chayo Nunez RN Conflict between beliefs and cancer treatments 0 03/12/2025 12:25 PM Yamel Nunez RN Relationship with the sacred 0 03/12/2025 1 2:25 PM Chayo Nunez RN Ritual or dietary needs 0 03/12/2025 12:25 PM Chayo Nunez RN * Physical Concerns Question Answer Date of Assessment Author Changes in eating 0 03/12/2025 12:25 PM Chayo Nunez RN Fatigue 0 03/12/2025 12:25 PM Chayo Lopez RN Memory/Concentration 0 03/12/2025 12:25 PM Chayo Nunez RN Pain 0 03/12/2025 12:25 PM Chayo Lopez RN Sexual health 0 03/12/2025 12:25 PM Chayo Gonzalez RN Sleep 0 03/12/2025 12:25 PM Chayo Lopez RN Substance use 0 03/12/2025 12:25 PM Chayo Gonzalez RN Tobacco use 1 03/12/2025 12:25 PM Chayo Lopez RN Loss or change of physical abilities 0 03/12/2025 12:25 PM Yamel Nunez RN * Weight Change 24 hrs Answer Date of Assessment Author .6 03/12/2025 12:21 PM Chayo Nunez RN * BSA (Calculated - sq m) Answer Date of Assessment Author 1.99 03/12/2025 12:21 PM Chayo Nunez RN * BMI (Calculated) Answer Date of Assessment Author 25.34 03/12/2025 12:21 PM Chayo Nunez RN * IBW/kg (Calculated) Male Answer Date of Assessment Author 73 03/12/2025 12:21 PM Chayo Nunez RN * IBW/kg (Calculated) Female Answer Date of Assessment Author 68.5 03/12/2025 12:21 PM Chayo Nunez RN * Restart Vitals Timer Answer Date of Assessment Author Yes 03/12/2025 12:21 PM Chayo Nunez RN * IBW/kg (Calculated) Answer Date of Assessment Author 68.5 03/12/2025 12:21 PM Chayo Nunez RN * Weight in (lb) to have BMI = 25 Answer Date of Assessment Author 173.9 03/12/2025 12:21 PM Chayo Nunez RN * BMI (Calculated) Answer Date of Assessment Author 25.4 03/12/2025 12:21 PM Chayo Nunez RN * Percent Excess Weight Loss Answer Date of Assessment Author 0 03/12/2025 12:21 PM Chayo Nunez RN * Weight Change Since Preop Answer Date of Assessment Author 80.1 03/12/2025 12:21 PM Chayo Nunez RN * Initial Excess Weight Answer Date of Assessment Author -68.04 03/12/2025 12:21 PM Chayo Nunez RN * IBW in kg (Bariatric) Answer Date of Assessment Author 68.04 03/12/2025 12:21 PM Chayo Nunez RN * IBW in lb (Bariatric) Answer Date of Assessment Author 150 03/12/2025 12:21 PM Chayo Nunez RN * Weight Change Since Last Visit Answer Date of Assessment Author 80.1 03/12/2025 12:21 PM Chayo Nunez RN * Percent of IBW Answer Date of Assessment Author 117.73 03/12/2025 12:21 PM Chayo Nunez RN * EBW (kg) Answer Date of Assessment Author 12.04 03/12/2025 12:21 PM Chayo Nunez RN * EBW (lb) Answer Date of Assessment Author 26.59 03/12/2025 12:21 PM Chayo Nunez RN * Difference in Weight Since Last Visit Answer Date of Assessment Author 0.6 03/12/2025 12:21 PM Chayo Nunez RN * Temp (in Celsius) for RESIGHINI IV Answer Date of Assessment Author 36.7 03/12/2025 12:21 PM Chayo Nunez RN * IBW/kg (Calculated) Answer Date of Assessment Author 68.5 03/12/2025 12:21 PM Chayo Nunez RN * Adult Low Range Vt 6mL/kg Answer Date of Assessment Author 411 03/12/2025 12:21 PM Chayo Nunez RN * Adult Moderate Range Vt 8mL/kg Answer Date of Assessment Author 548 03/12/2025 12:21 PM Chayo Nunez RN * Adult High Range Vt 10mL/kg Answer Date of Assessment Author 685 03/12/2025 12:21 PM Chayo Nunez RN * Pain Score Answer Date of Assessment Author 0 03/12/2025 12:23 PM Chayo Nunez RN * Vitals Timer Question Answer Date of Assessment Author Restart Vitals Timer Yes 03/12/2025 12:21 PM Chayo Nunez RN * Pain Screening/Additional Assessments Question Answer Date of Assessment Author Pain Screening/Assessments Pain Screening 03/12/2025 12:23 PM Khadra Nunez RN * Pain Screening Answer Date of Assessment Author 0-10 03/12/2025 12:23 PM Chayo Nunez RN * BP Answer Date of Assessment Author 139/83 03/12/2025 12:21 PM Chayo Nunez RN * Temp Answer Date of Assessment Author 98 03/12/2025 12:21 PM Chayo Nunez RN * Temp src Answer Date of Assessment Author Oral 03/12/2025 12:21 PM Chayo Nunez RN * Pulse Answer Date of Assessment Author 89 03/12/2025 12:21 PM Chayo Nunez RN * Resp Answer Date of Assessment Author 18 03/12/2025 12:21 PM Chayo Nunez RN * SpO2 Answer Date of Assessment Author 97 03/12/2025 12:21 PM Chayo Nunez RN * Height Answer Date of Assessment Author 70 03/12/2025 12:21 PM Chayo Nunez RN * Weight Answer Date of Assessment Author 2825.42 03/12/2025 12:21 PM Chayo Nunez RN * Distress Thermometer Score Question Answer Date of Assessment Author Appointment Type Other 03/12/2025 12:25 PM Chayo Nunez RN Based on the past week, please select the number that best describes how much distress you have had. 0 being none and 10 being the most extreme. 0 03/12/2025 12:25 PM Yamel Nunez RN * Practical Concerns Question Answer Date of Assessment Author Taking care of myself 0 03/12/2025 12:25 PM Chayo Nunez, [place] Housing 0 03/12/2025 12:25 PM Chayo Lopez, RN Finances 0 03/12/2025 12:25 PM Chayo Lopez, RN Transportation 0 03/12/2025 12:25 PM Chayo Ashley, RN Work 0 03/12/2025 12:25 PM Chayo Lopez, RN Treatment Decisions 0 03/12/2025 12:25 PM Chayo Singer RN Taking care of others 0 03/12/2025 12:25 PM Chayo Nunez, education program manager No 03/12/2025 12:25 PM Chayo Lopez, RN Insurance 0 03/12/2025 12:25 PM Chayo Lopez adjunct spanish instructorhealthcare administration intern 0 03/12/2025 12:25 PM Chayo Lopez RN Having enough food 0 03/12/2025 12:25 PM Chayo Jean RN Access to medicine 0 03/12/2025 12:25 PM Chayo Jean, RN * Social Concerns Question Answer Date of Assessment Author Relationship with children 0 03/12/2025 12: 25 PM Chayo Nunez RN Relationship with spouse or partner 0 03/12/2025 12:25 PM Yamel Nunez RN Ability to have children 0 03/12/2025 12:25 PM Chayo Nunez RN Relationship with family members 0 03/12/2025 12:25 PM Yamel Nunez RN Communication with health ca re team 0 03/12/2025 12:25 PM Yamel Nunez RN Relationship with friends or coworkers 0 03/12/2025 12:25 PM Yamel Nunez RN Prejudice or discrimination 0 03/12/2025 12 :25 PM Chayo Nunez, RN * Emotional Concerns Question Answer Date of Assessment Author Sadness or Depression 0 03/12/2025 12:25 PM Chayo Nunez RN Fear 0 03/12/2025 12:25 PM Chayo Lopez RN Worry or anxiety 0 03/12/2025 12:25 PM Chayo Nunez RN Loss of interest or enjoyment 0 03/12/2025 12:25 PM Chayo Nunez RN Grief or loss 0 03/12/2025 12:25 PM Chayo Gonzalez, RN Loneliness 0 03/12/2025 12:25 PM Chayo Lopez, RN Anger 0 03/12/2025 12:25 PM Chayo Lopez RN Changes in appearance 0 03/12/2025 12:25 PM Chayo Nunez RN Feelings of worthlessness or being a burden 0 03/12/2025 12:25 PM Yamel Nunez RN * Spiritual/Orthodoxy Concerns Question Answer Date of Assessment Author Sense of meaning or purpose 0 03/12/2025 12 :25 PM Chayo Nunez RN Change in shirley or beliefs 0 03/12/2025 12: 25 PM Chayo Nunez RN , dying or afterlife 0 03/12/2025 12:2 5 PM Chayo Nunez RN Conflict between beliefs and cancer treatments 0 03/12/2025 12:25 PM Yamel Nunez RN Relationship with the sacred 0 03/12/2025 1 2:25 PM Chayo Nunez RN Ritual or dietary needs 0 03/12/2025 12:25 PM Chayo Nunez RN * Physical Concerns Question Answer Date of Assessment Author Changes in eating 0 03/12/2025 12:25 PM Chayo Nunez RN Fatigue 0 03/12/2025 12:25 PM Chayo Lopez RN Memory/Concentration 0 03/12/2025 12:25 PM Chayo Nunez RN Pain 0 03/12/2025 12:25 PM Chayo Lopez RN Sexual health 0 03/12/2025 12:25 PM Chayo Gonzalez, RN Sleep 0 03/12/2025 12:25 PM Chayo Lopez, RN Substance use 0 03/12/2025 12:25 PM Chayo Gonzalez RN Tobacco use 1 03/12/2025 12:25 PM Chayo Lopez RN Loss or change of physical abilities 0 03/12/2025 12:25 PM Yamel Nunez RN * BSA (Calculated - sq m) Answer Date of Assessment Author 1.99 03/12/2025 12:21 PM Chayo Nunez RN * BMI (Calculated) Answer Date of Assessment Author 25.34 03/12/2025 12:21 PM Chayo Nunez RN * Restart Vitals Timer Answer Date of Assessment Author Yes 03/12/2025 12:21 PM Chayo Nunez RN * Weight in (lb) to have BMI = 25 Answer Date of Assessment Author 173.9 03/12/2025 12:21 PM Chayo Nunez RN * Pain Score Answer Date of Assessment Author 0 03/12/2025 12:23 PM Chayo Nunez RN * Learning Needs Screening Question Answer Date of Assessment Author Are there things (barriers) that make it harder for this patient to learn? No Barriers 03/12/2025 12:25 PM Yamel Nunez RN What is the best language to use for teaching this patient about his/her health? Marshallese 03/12/2025 12:25 PM Khadra Nunez RN What format does this patient think is most helpful for learning? Listening;Demonstrati on 03/12/2025 12:25 PM Chayo Nunez RN Primary Learner Patient 03/12/2025 12:25 PM Chayo Castro RN * Readiness to Learn Question Answer Date of Assessment Author Readiness Acceptance 03/12/2025 12:25 PM Chayo Lopez RN documented as of this encounter Mental Status * BP Answer Entry Date Author 139/83 03/12/2025 12:21 PM Chayo Nunez RN * Temp Answer Entry Date Author 98 03/12/2025 12:21 PM Chayo Nunez RN * Temp src Answer Entry Date Author Oral 03/12/2025 12:21 PM Chayo Nunez RN * Pulse Answer Entry Date Author 89 03/12/2025 12:21 PM Chayo Nunez RN * Resp Answer Entry Date Author 18 03/12/2025 12:21 PM Chayo Nunez RN * SpO2 Answer Entry Date Author 97 03/12/2025 12:21 PM Chayo Nunez RN * Height Answer Entry Date Author 70 03/12/2025 12:21 PM Chayo Nunez RN * Weight Answer Entry Date Author 2825.42 03/12/2025 12:21 PM Chayo Nunez RN * BMI (Calculated) Answer Entry Date Author 25.4 03/12/2025 12:21 PM Chayo Nunez RN * Percent Excess Weight Loss Answer Entry Date Author 0 03/12/2025 12:21 PM Chayo Nunez RN * Total Weight Change Percent Answer Entry Date Author 2222 03/12/2025 12:21 PM Chayo Nunez RN * Weight Change Since Preop Answer Entry Date Author 80.08 03/12/2025 12:21 PM Chayo Nunez RN * Initial Excess Weight Answer Entry Date Author -68.04 03/12/2025 12:21 PM Chayo Nunez RN * IBW in lbs (Bariatric) Answer Entry Date Author 150 03/12/2025 12:21 PM Chayo Nunez RN * Weight Change Since Last Visit Answer Entry Date Author 80.08 03/12/2025 12:21 PM Chayo Nunez RN * IBW in kg (Bariatric) Answer Entry Date Author 68.04 03/12/2025 12:21 PM Chayo Nunez RN * Percent of IBW Answer Entry Date Author 4,152.59 03/12/2025 12:21 PM Chayo Nunez RN * EBW (kg) Answer Entry Date Author 2,823.49 03/12/2025 12:21 PM Chayo Nunez RN * EBW (lbs) Answer Entry Date Author 2,816.05 03/12/2025 12:21 PM Chayo Nunez RN * Distress Thermometer Score Question Answer Entry Date Author Appointment Type Other 03/12/2025 12:25 PM Chayo Nunez RN Based on the past week, flaco pillai select the number that best describes how much distress you have had. 0 being none and 10 being the most extreme. 0 03/12/2025 12:25 PM Chayo Nunez, RN * Practical Concerns Question Answer Entry Date Author Taking care of myself 0 03/12/2025 12:25 PM Chayo Nunez, RN Housing 0 03/12/2025 12:25 PM Chayo Lopez, RN Finances 0 03/12/2025 12:25 PM Chayo Lopez, RN Transportation 0 03/12/2025 12:25 PM Chayo Ashley, RN Work 0 03/12/2025 12:25 PM Chayo Lopez, RN Treatment Decisions 0 03/12/2025 12:25 PM Chayo Singer RN Taking care of others 0 03/12/2025 12:25 PM Chayo Nunez, education program manager No 03/12/2025 12:25 PM Chayo Lopez, RN Insurance 0 03/12/2025 12:25 PM Chayo Lopez, adjunct spanish instructorhealthcare administration intern 0 03/12/2025 12:25 PM Chayo Lopez, [place] Having enough food 0 03/12/2025 12:25 PM Chayo Jean RN Access to medicine 0 03/12/2025 12:25 PM Chayo Jean, RN * Social Concerns Question Answer Entry Date Author Relationship with children 0 03/12 12:25 PM Chayo Nunez RN Relationship with spouse or partner 0 03/12/2025 12:25 PM Chayo Nunez, RN Ability to have children 0 025 12:25 PM Chayo Nunez, RN Relationship with family members 0 03/12/2025 12:25 PM Chayo Nunez, RN Communication with health ca re team 0 03/12/2025 12:25 PM Chayo Nunez, RN Relationship with friends or coworkers 0 03/12/2025 12:25 PM Chayo Nunez, RN Prejudice or discrimination 0 08/2024 12:25 PM Chayo Nunez RN * Emotional Concerns Question Answer Entry Date Author Sadness or Depression 0 03/12/2025 12:25 PM Chayo Nunez RN Fear 0 03/12/2025 12:25 PM Chayo Nunez RN Worry or anxiety 0 03/12/2025 12:2 5 PM Chayo Nunez RN Loss of interest or enjoyment 0 12:25 PM Chayo Nunez RN Grief or loss 0 03/12/2025 12:25 PM Chayo Nunez RN Loneliness 0 03/12/2025 12:25 PM Chayo Nunez RN Anger 0 03/12/2025 12:25 PM Chayo Nunez RN Changes in appearance 0 03/12/2025 12:25 PM Chayo Nunez RN Feelings of worthlessness or being a burden 0 03/12/2025 12:25 PM Chayo Nunez RN * Spiritual/Orthodoxy Concerns Question Answer Entry Date Author Sense of meaning or purpose 0 03/12/2025 12 :25 PM Chayo Nunez RN Change in shirley or beliefs 0 03/12/2025 12: 25 PM Chayo Nunez RN , dying or afterlife 0 03/12/2025 12:2 5 PM Chayo Nunez RN Conflict between beliefs and cancer treatments 0 03/12/2025 12:25 PM Yamel Nunez RN Relationship with the sacred 0 03/12/2025 1 2:25 PM Chayo Nunez RN Ritual or dietary needs 0 03/12/2025 12:25 PM Chayo Nunez, RN * Physical Concerns Question Answer Entry Date Author Changes in eating 0 03/12/2025 12:25 PM Chayo Nunez RN Fatigue 0 03/12/2025 12:25 PM Chayo Lopez RN Memory/Concentration 0 03/12/2025 12:25 PM Chayo Nunez RN Pain 0 03/12/2025 12:25 PM Chayo Lopez RN Sexual health 0 03/12/2025 12:25 PM Chayo Gonzalez RN Sleep 0 03/12/2025 12:25 PM Chayo Lopez RN Substance use 0 03/12/2025 12:25 PM Chayo Gonzalez RN Tobacco use 1 03/12/2025 12:25 PM Chayo Lopez RN Loss or change of physical abilities 0 03/12/2025 12:25 PM Yamel Nunez RN * Weight Change 24 hrs Answer Entry Date Author .6 03/12/2025 12:21 PM Chayo Nunez RN * BSA (Calculated - sq m) Answer Entry Date Author 1.99 03/12/2025 12:21 PM Chayo Nunez RN * BMI (Calculated) Answer Entry Date Author 25.34 03/12/2025 12:21 PM Chayo Nunez RN * IBW/kg (Calculated) Male Answer Entry Date Author 73 03/12/2025 12:21 PM Chayo Nunez RN * IBW/kg (Calculated) Female Answer Entry Date Author 68.5 03/12/2025 12:21 PM Chayo Nunez RN * Restart Vitals Timer Answer Entry Date Author Yes 03/12/2025 12:21 PM Chayo Nunez RN * IBW/kg (Calculated) Answer Entry Date Author 68.5 03/12/2025 12:21 PM Chayo Nunez RN * Restart Pain Assessment Timer Answer Entry Date Author Yes 03/12/2025 12:23 PM Chayo Nunez RN * Weight in (lb) to have BMI = 25 Answer Entry Date Author 173.9 03/12/2025 12:21 PM Chayo Nunez RN * BMI (Calculated) Answer Entry Date Author 25.4 03/12/2025 12:21 PM Chayo Nunez RN * Percent Excess Weight Loss Answer Entry Date Author 0 03/12/2025 12:21 PM Chayo Nunez RN * Weight Change Since Preop Answer Entry Date Author 80.1 03/12/2025 12:21 PM Chayo Nunez RN * Initial Excess Weight Answer Entry Date Author -68.04 03/12/2025 12:21 PM Chayo Nunez RN * IBW in kg (Bariatric) Answer Entry Date Author 68.04 03/12/2025 12:21 PM Chayo Nunez RN * IBW in lb (Bariatric) Answer Entry Date Author 150 03/12/2025 12:21 PM Chayo Nunez RN * Weight Change Since Last Visit Answer Entry Date Author 80.1 03/12/2025 12:21 PM Chayo Nunez RN * Percent of IBW Answer Entry Date Author 117.73 03/12/2025 12:21 PM Chayo Nunez RN * EBW (kg) Answer Entry Date Author 12.04 03/12/2025 12:21 PM Chayo Nunez RN * EBW (lb) Answer Entry Date Author 26.59 03/12/2025 12:21 PM Chayo Nunez RN * Difference in Weight Since Last Visit Answer Entry Date Author 0.6 03/12/2025 12:21 PM Chayo Nunez RN * Temp (in Celsius) for RESIGHINI IV Answer Entry Date Author 36.7 03/12/2025 12:21 PM Chayo Nunez RN * IBW/kg (Calculated) Answer Entry Date Author 68.5 03/12/2025 12:21 PM Chayo Nunez RN * Adult Low Range Vt 6mL/kg Answer Entry Date Author 411 03/12/2025 12:21 PM Chayo Nunez RN * Adult Moderate Range Vt 8mL/kg Answer Entry Date Author 548 03/12/2025 12:21 PM Chayo Nunez RN * Adult High Range Vt 10mL/kg Answer Entry Date Author 685 03/12/2025 12:21 PM Chayo Nunez RN * Pain Score Answer Entry Date Author 0 03/12/2025 12:23 PM Chayo Nunez RN * Vitals Timer Question Answer Entry Date Author Restart Vitals Timer Yes 03/12/2025 12:21 PM Chayo Nunez RN * Pain Screening Answer Entry Date Author 0-10 03/12/2025 12:23 PM EST Chayo Zlueta RN documented in this encounter Miscellaneous Notes * Progress Notes - Zakiya Jara MD - 03/12/2025 11:30 AM EST Images from the original note were not included. [facility] Postoperative Note Jennifer Jara is a 59 y.o. female with pmhx of left IDC grade 2, [id number] s/p bilateral mastectomy with SLNB (01/30/25) who returns today for her postoperative visit. During her last visit we discussed her pathology and the utility of radiation vs left axillary lymphadenectomy given her soni disease. She remains adamantly against radiation and would like to pursue surgical options only. We also discussed the need for staging CT chest/abdomen/pelvis during her last visit as well as NM bonescan, however these imaging studies have not yet been performed. Patient reports feeling well todayoverall. She denies any issues with wound healing, weight loss, fatigue, headaches, back pain, or ne w adenopathy or skin lesions. Final Diagnosis (no units) Date/Time Value 01/30/2025 1103 A. BREAST, LEFT, MASTECTOMY: - INVASIVE GRADE 2 DUCTAL CARCINOMA WITH LOBULAR FEATURES - MARGINS FREE OF TUMOR - FINAL TUMOR STAGE: AT LEAST pT2, pN1a - SEE COMMENT AND CHECKLIST B. BREAST, RIGHT, MASTECTOMY: - BENIGN BREAST WITH BIOPSY SITE CHANGES, ADENOSIS, AND ASSOCIATED MICROCALCIFICATIONS - NO EVIDENCE OF ATYPICAL HYPERPLASIA OR CARCINOMA C. LYMPH NODE, LEFT AXILLARY SENTINEL (MAX SIGNAL 9X90), EXCISION: - NO TUMOR SEEN IN ONE LYMPH NODE (0/1) D. LYMPH NODE, LEFT AXILLARY (SUSPICIOUS, BLUE), EXCISION: - METASTATIC CARCINOMA IN ONE OF TWO LYMPH NODES (1/2) - LARGEST TUMOR SIZE: 8 MM - EXTRANODAL EXTENSION IDENTIFIED E. BREAST, LEFT (ADDITIONAL TISSUE), EXCISION:: - BENIGN BREAST TISSUE; NO TUMOR SEEN F. SKIN, LEFT BREAST, EXCISION: - BENIGN SKIN; NO TUMOR SEEN Comment (no units) Date/Time Value 01/30/2025 1103 Determining the size and therefore the stage of the left breast carcinoma is challenging. Grossly there is a 70 mm lesion that spans much of the breast. Microscopically, this lesion is comprised of amixture of fibrous tissue and multiple contiguous foci of invasive carcinoma. The largest focus on any one slide is 23 mm. While the gross findings are worrisome for a tumor greater than 50 mm (and therefore a pT3), the intermixed biopsy site changes and fibrosis make it difficult to be definitive.Therefore the tumor is staged as at least a pT2. Correlation with radiologic findings is strongly suggested. A summary of the hormone receptors is as follows: ER TN Her2 (IHC) Previous Breast Biopsy ([id number], 12:00 site) positive (>95%, 3+) positive (>95%, 3+) negative (0) Previous Breast Biopsy ([id number], 2:00 site) positive (>95%, 2+) positive (80%, 3+) low (1+) Current Breast Lesion (A) positive (90-100%, 2+) positive (90-100%, 2+) negative (0) Current Lymph Node (D) positive (90-100%, 2+) positive (100%, 3+) negative (0) Synoptic Checklist (no units) Date/Time Value 01/30/2025 1103 INVASIVE CARCINOMA OF THE BREAST: Resection INVASIVE CARCINOMA OF THE BREAST: RESECTION - All Specimens 8th Edition - Protocol posted: 10/26/2023 SPECIMEN Procedure: Total mastectomy Specimen Laterality: Left TUMOR Tumor Site: Clock position : 2 o'clock : 12 o'clock Histologic Type: Invasive carcinoma of no special type (ductal) Histologic Type Comment: with lobular features Histologic Grade ([place] Histologic Score): Glandular (Acinar) / Tubular Differentiation: Score 3 Nuclear Pleomorphism: Score 2 Mitotic Rate: Score 1 Overall Grade: Grade 2 (scores of 6 or 7) Tumor Size: Greatest dimension of largest invasive focus (Millimeters): 23 mm Tumor Focality: Single focus of invasive carcinoma Ductal Carcinoma In Situ (DCIS): Not identified Lobular Carcinoma In Situ (LCIS): Not identified Lymphatic and / or Vascular Invasion: Not identified Dermal Lymphatic and / or Vascular Invasion: Not identified Microcalcifications: Present in non-neoplastic tissue Treatment Effect in the Breast: No known presurgical therapy MARGINS Margin Status for Invasive Carcinoma: All margins negative for invasive carcinoma Distance from Invasive Carcinoma to Closest Margin: Greater than: 20 mm Closest Margin(s) to Invasive Carcinoma: Anterior REGIONAL LYMPH NODES Regional Lymph Node Status: : Tumor present in regional lymph node(s) Number of Lymph Nodes with Macrometastases: 1 Number of Lymph Nodes with Micrometastases: 0 Size of Largest Soni Metastatic Deposit: 8 mm Extranodal Extension: Present, greater than 2 mm Amount: 3.5 mm Total Number of Lymph Nodes Examined (sentinel and non-sentinel): 3 Number of [place] Nodes Examined: 1 pTNM CLASSIFICATION (AJCC 8th Edition) Reporting of pT, pN, and (when applicable) pM categories is based on information available to the pathologist at the time the report is issued. As per the AJCC (Chapter 1, 8th Ed.) it is the managingphysician's responsibility to establish the final pathologic stage based upon all pertinent information, including but potentially not limited to this pathology report. pT Category: pT2 pN Category: pN1a Breast Biomarker Testing Performed on Previous Biopsy: Estrogen Receptor (ER) Status: Positive (greater than 10% of cells demonstrate nuclear positivity) Percentage of Cells with Nuclear Positivity: 91-100% Breast Biomarker Testing Performed on Previous Biopsy: Progesterone Receptor (PgR) Status: Positive Percentage of Cells with Nuclear Positivity: 91-100% Breast Biomarker Testing Performed on Previous Biopsy: HER2 (by immunohistochemistry): Negative (Score 1+) Testing Performed on Breast Biomarker Reporting Template BREAST BIOMARKER REPORTING TEMPLATE - A Protocol posted: 07/25/2024 Testing Performed on Specimen / Block Number(s): A30 (Primary Lesion) Estrogen Receptor (ER) Status: Positive (greater than 10% of cells demonstrate nuclear positivity) Percentage of Cells with Nuclear Positivity: 91-100% Average Intensity of Staining: Moderate (2+) Progesterone Receptor (PgR) Status: Positive Percentage of Cells with Nuclear Positivity: 91-100% Average Intensity of Staining: Moderate (2+) HER2 by Immunohistochemistry (IHC) Status: Negative (Score 0) : No membrane staining detected (0 / absent membrane staining) METHODS Cold Ischemia and Fixation Times: Meet requirements specified in latest version of the ASCO / CAP Guidelines Fixative: Formalin ER Testing Methodology: ER Test Type: Food and Drug Administration (FDA) cleared (test / vendor): [employer] ER Primary Antibody: SP1 PgR Testing Methodology: PgR Test Type: Food and Drug Administration (FDA) cleared (test / vendor): [employer] PgR Primary Antibody: 1E2 HER2 IHC Testing Methodology: HER2 IHC Test Type: Food and Drug Administration (FDA) cleared (test / vendor): [employer] HER2 IHC Primary Antibody: 4B5 Image Analysis: Not performed Breast Biomarker Reporting Template BREAST BIOMARKER REPORTING TEMPLATE - D Protocol posted: 07/25/2024 Testing Performed on Specimen / Block Number(s): D2 (Lymph node) Estrogen Receptor (ER) Status: Positive (greater than 10% of cells demonstrate nuclear positivity) Percentage of Cells with Nuclear Positivity: 91-100% Average Intensity of Staining: Moderate (2+) Progesterone Receptor (PgR) Status: Positive Percentage of Cells with Nuclear Positivity: 100 % Average Intensity of Staining: Strong (3+) HER2 by Immunohistochemistry (IHC) Status: Negative (Score 0) : Membrane staining that is incomplete and is faint / barely perceptible and in less than or equal to 10% of tumor cells (0+ / with membrane staining) METHODS Cold Ischemia and Fixation Times: Meet requirements specified in latest version of the ASCO / CAP Guidelines Fixative: Formalin ER Testing Methodology: ER Test Type: Food and Drug Administration (FDA) cleared (test / vendor): [employer] ER Primary Antibody: SP1 PgR Testing Methodology: PgR Test Type: Food and Drug Administration (FDA) cleared (test / vendor): [employer] PgR Primary Antibody: 1E2 HER2 IHC Testing Methodology: HER2 IHC Test Type: Food and Drug Administration (FDA) cleared (test / vendor): [employer] HER2 IHC Primary Antibody: 4B5 Image Analysis: Not performed Oncology History: - 01/30/25: bilateral mastectomy with left SLNB Physical Examination: The left breast demonstrates a well-healing incision and right breast demonstrates a well-healing incision. The surgical area is clean and dry and demonstrates no erythema or drainage. ECOG Performance Status: 0 CARE TEAM Primary Care Physician: Christopher Palacios MD Plastic and Reconstructive Surgery: N/A Medical Oncology: Dr. Jan Corrales Radiation Oncology: N/A Impression: Invasive ductal carcinoma, left breast, 2.3 cm. AJCC (8th Edition) Pathologic Stage: Cancer Staging Infiltrating ductal carcinoma of left female breast Staging form: Breast, AJCC 8th Edition - Clinical stage from 11/20/2024: Stage IB (cT2, cN0, cM0, G2, ER+, TN+, HER2-) - Unsigned Stage prefix: Initial diagnosis Method of lymph node assessment: Other Histologic grading system: 3 grade system - Pathologic stage from 01/30/2025: Stage IB (pT2, pN1a(sn), cM0, G2, ER+, TN+, HER2-) - Unsigned Stage prefix: Initial diagnosis Method of lymph node assessment: [place] lymph node biopsy Multigene prognostic tests performed: None Histologic grading system: 3 grade system Plan: Today we discussed patient's pathology with her again, which as also been discussed at our multidisciplinary tumor board. The patient has invasive ductal carcinoma of the left breast that measured 2.3 cm in size, ER/TN positive, HER2 negative. She had a total of 3 lymph nodes that were removed and 1 of them was positive for an 8 mm deposit of metastatic carcinoma. She also has 3.5 mm of extranodal extension. We recommend radiation, however patient is strongly opposed to radiation therapy. Todaywe discussed the utility of axillary lymphadenectomy in this scenario. We discussed that this procedure is not without significant risk. These risks include injury to nerves, including the long thoracic and thoracodorsal (1%) as well as permanent disruption of the lymphatic system leading to lymphedema (20%). There is also risk of injury to the axillary artery and vein (1%). Patient would still like to proceed. Prior to left axillary lymphadenectomy, we need to ensure that she does not have meta static disease. We will arrange for CT chest/abdomen/pelvis as well as NM bone scan. We will also reach out to her medical oncologist, Dr. Corrales, to ensure that she is started on an AI. If patient's staging imaging is benign, we will plan to schedule her left axillary lymphadenectomy and obtain consent the same day as surgery given her transportation issues. She understands that should she have any concerns or questions, she is welcome to either call at any time, or return to see us at any point. Dr. Gloria Vail MD Dimensional Integration Engineer of Surgical Oncology [facility] Cosigned by Gloria Vail MD at 03/14/2025 10:41 PM EST Associated attestation - Gloria Vail MD - 03/14/2025 10:41 PM EST Images from the original note were not included. Attending Attestation: I personally saw and evaluated the patient with the resident. I attest to being involved in providing substantive time in patient care. I discussed the case with them and agree with the findings as documented. The discussion and plan reflect my edits and medical decision making. Dr. Gloria Vail MD Dimensional Integration Engineer of Surgical Oncology [facility] documented in this encounter Plan of Treatment Upcoming Encounters Date Type Department Care Team (Late st Contact Info) Description 06/18/2025 11:45 AM EST Office Visit [facility] [address] [place] [address] Gloria Vail MD [address] [place] [address] Scheduled Orders Name Type Priority Associated Diagnoses Orde r Schedule CT Abdomen Pelvis w IV Contrast Imaging STAT Infiltrating ductal carcinoma of left female breast Expected: 03/12/2025 (Approximate), Expires: 09/13/2026 CT Chest w IV Contrast Imaging STAT Infiltrating ductal carcinoma of left female breast Expected: 03/12/2025 (Approximate), Expires: 09/13/2026 NM Bone Scan Whole Body Imaging STAT Infiltrating ductal carcinoma of left female breast Expected: 03/12/2025 (Approximate), Expires: 09/13/2026 Scheduled Procedures Name Priority Associated Diagnoses Date/Ti me LYMPHADENECTOMY, AXILLARY 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 Author Autogenerat ed Goal Care Plan Autogenerated Problem No Sukumar Trinidad documented as of this encounter Procedures Procedure Name Priority Date/Time Associated Diagnosis Comments PROTHROMBIN TIME(PT) / INR Routine 03/12/2025 1:53 PM EST Infiltrating ductal carcinoma of left female breast CBC WITH AUTO DIFFERENTIAL Routine 03/12/2025 1:53 PM EST Infiltrating ductal carcinoma of left female breast COMPREHENSIVE METABOLIC PANEL, PLASMA Routine 03/12/2025 1:53 PM EST Infiltrating ductal carcinoma of left female breast documented in this encounter Results * Prothrombin Time/INR (03/12/2025 1:53 PM EST) Prothrombin Time 12.6 12.0 - 14.3 sec LAB COAGULATION METHOD 03/12/2025 2:48 PM EST [facility] INR 0.9 0.9 - 1.1 LAB COAGULATION METHOD 03/12/2025 2:48 PM EST [facility] Blood Venous blood specimen / Unknown Venipuncture / Unknown 03/12/2025 1:53 PM EST 03/12/2025 2:12 PM EST Narrative [facility] - 03/12/2025 2:48 PM EST OPTIMAL INR RANGES FOR PATIENT ON ORAL ANTICOAGULANT THERAPY Prevention of venous thromboembolism INR 2.0 to 3.0 In patients with heart disease: Atrial fibrillation INR 2.0 to 3.0 Valvular heart disease INR 2.0 to 3.0 Tissue heart valves INR 2.0 to 3.0 Mechanical prosthetic valves INR 2.5 to 3.5 Prevention of recurrent ND INR 2.5 to 3.5 us Gloria Vail MD LAB BLOOD ORDERABLES Final Resul t [facility] [address] [place] [address] * (ABNORMAL) Comprehensive metabolic panel (03/12/2025 1:53 PM EST) Glucose, Plasma 95 74 - 99 mg/dL 03/12/2025 2:48 PM EST [facility] BUN, Plasma 10 7 - 21 mg/dL 03/12/2025 2:48 PM EST [facility] Creatinine, Plasma 0.51(L) 0.60 - 1.10 mg/dL 03/12/2025 2:48 PM EST [facility] BUN/Creatinine Ratio 20 03/12/2025 2:48 PM EST [facility] Sodium, Plasma 138 136 - 145 mmol/L 03/12/2025 2:48 PM EST [facility] Potassium, Plasma 4.0 3.6 - 4.9 mmol/L 03/12/2025 2:48 PM EST [facility] Chloride, Plasma 103 97 - 107 mmol/L 03/12/2025 2:48 PM EST [facility] CO2, Plasma 23 22 - 29 mmol/L 03/12/2025 2:48 PM EST [facility] Anion Gap 12 6 - 16 mmol/L 03/12/2025 2:48 PM EST [facility] Total Calcium, Plasma 9.4 8.9 - 10.2 mg/dL 03/12/2025 2:48 PM EST [facility] Total Protein 8.3(H) 6.3 - 7.9 g/dL 03/12/2025 2:48 PM [facility] Albumin, Plasma 4.5 3.5 - 5.2 g/dL 03/12/2025 2:48 PM EST [facility] AST, Plasma 23 10 - 35 U/L 03/12/2025 2:48 PM EST [facility] ALT, Plasma 20 10 - 35 U/L 03/12/2025 2:48 PM EST [facility] Alkaline Phosphatase, Plasma 129 46 - 142 U/L 03/12/2025 2:48 PM [facility] Total Bilirubin, Plasma 0.6 0.2 - 1.1 mg/dL 03/12/2025 2:48 PM EST [facility] eGFRcr 107.7 mL/min/1.7 3m*2 03/12/2025 2:48 PM EST [facility] Comment:Reported eGFRcr in m L/min/1.73m2 is based the CKD-EPI 2020 equation that does not use a race coefficient. Blood Venous blood specimen / Unknown Venipuncture / Unknown 03/12/2025 1:53 PM EST 03/12/2025 2:13 PM EST us Gloria Vail MD LAB BLOOD ORDERABLES Final Resul t [facility] [address] [place] [address] * (ABNORMAL) CBC and differential (03/12/2025 1:53 PM EST) WBC Count 7.92 3.70 - 10.30 10*3/uL LAB HEMATOLOGY METHOD 03/12/2025 2:47 PM EST [facility] RBC Count 4.42 3.90 - 5.20 10*6/uL LAB HEMATOLOGY METHOD 03/12/2025 2:47 PM EST [facility] HGB 15.1 11.2 - 15.7 g/dL LAB HEMATOLOGY METHOD 03/12/2025 2:47 PM EST [facility] HCT 45.3(H) 34.0 - 45.0 % LAB HEMATOLOGY METHOD 03/12/2025 2:47 PM EST [facility] Platelet Count 280 155 - 369 10*3/uL LAB HEMATOLOGY METHOD 03/12/2025 2:47 PM EST [facility] MCV 103(H) 79 - 98 fL LAB HEMATOLOGY METHOD 03/12/2025 2:47 PM EST [facility] MCH 34.2(H) 26.0 - 32.0 pg LAB HEMATOLOGY METHOD 03/12/2025 2:47 PM EST [facility] MCHC 33.3 30.7 - 35.5 g/dL LAB HEMATOLOGY METHOD 03/12/2025 2:47 PM EST [facility] RDW 12.8 11.5 - 14.5 % LAB HEMATOLOGY METHOD 03/12/2025 2:47 PM EST [facility] MPV 8.8 8.8 - 12.5 fL LAB HEMATOLOGY METHOD 03/12/2025 2:47 PM EST [facility] nRBC 0.0 <=0.0 per 100 WBCs LAB HEMATOLOGY METHOD 03/12/2025 2:47 PM EST [facility] Differential Type Automated LAB HEMATOLOGY METHOD 03/12/2025 2:47 PM EST [facility] Neutrophils % 50 % LAB HEMATOLOGY METHOD 03/12/2025 2:47 PM EST [facility] Lymphocytes % 33 % LAB HEMATOLOGY METHOD 03/12/2025 2:47 PM EST [facility] Monocytes % 9 % LAB HEMATOLOGY METHOD 03/12/2025 2:47 PM EST [facility] Eosinophils % 6 % LAB HEMATOLOGY METHOD 03/12/2025 2:47 PM EST [facility] Basophils % 1 % LAB HEMATOLOGY METHOD 03/12/2025 2:47 PM EST [facility] Immature Granulocytes % 1 % LAB HEMATOLOGY METHOD 03/12/2025 2:47 PM EST [facility] Neutrophils Absolute 4.05 1.60 - 6.10 10*3/uL LAB HEMATOLOGY METHOD 03/12/2025 2:47 PM EST [facility] Lymphocytes Absolute 2.63 1.20 - 3.90 10*3/uL LAB HEMATOLOGY METHOD 03/12/2025 2:47 PM EST [facility] Monocytes Absolute 0.67 0.30 - 0.90 10*3/uL LAB HEMATOLOGY METHOD 03/12/2025 2:47 PM EST [facility] Eosinophils Absolute 0.44 0.00 - 0.50 10*3/uL LAB HEMATOLOGY METHOD 03/12/2025 2:47 PM EST [facility] Basophils Absolute 0.09 0.00 - 0.10 10*3/uL LAB HEMATOLOGY METHOD 03/12/2025 2:47 PM EST [facility] Immature Granulocytes Absolute 0.04 0.00 - 0.06 10*3/uL LAB HEMATOLOGY METHOD 03/12/2025 2:47 PM EST [facility] Blood Venous blood specimen / Unknown Venipuncture / Unknown 03/12/2025 1:53 PM EST 03/12/2025 2:39 PM EST Narrative [facility] - 03/12/2025 2:47 PM EST Therapeutic decision making should be based on absolute values, rather than percentages. us Gloria Vail MD LAB BLOOD ORDERABLES Final Resul t [facility] [address] [place] [address] documented in this encounter Visit Diagnoses Diagnosis Infiltrating ductal carcinoma of left female breast- Primary documented in this encounter Additional Health Concerns Active Problems Noted Date Diagnosed Date Autogenerated Problem 11/21/2024 Assessment Noted Time A fall risk assessment has been complete d for the patient 02/20/2025 11:35 AM EDT A Body Mass Index follow-up plan has been documented for the patient 03/14/2025 10:41 PM EST documented as of this encounter Care Teams Multiple Games Dealer Relationship Specialty [place] [id number] PCP - General 11/20/24 documented as of this encounter
--- OUTSIDE RECORDS SUMMARY | 2025-04-26 | XMS_ITS | Encounter Summary ---
Author Organization [facility] Address [address] [place] [address] Care Team Providers Care Guest Experience Manager Name Role Phone Christopher Palacios MD Primary Care Provider [phone] Encounter Details Date Type Department Care Team (Latest Contact Info) Description 04/26/2025 - 04/26/2025 11:59 PM [facility] Hospital Encounter Image Record Center [address] [place] [address] Examination Discharge Disposition: Home or Self Care Social History Tobacco Use Types Packs/Day Years [...] on file documented as of this encounter Medications at Time of Discharge acetaminophen (Tylenol) 500 MG tablet Take 2 tablets by mouth every 8 hours. Alternate between acetaminophen and ibuprofen 50 tablet 5 docusate sodium (Colace) 250 MG capsule Take 1 capsule by mouth daily. 10 capsule 5 ibuprofen 800 MG tablet Take 1 tablet by mouth every 8 hours. Alternate between acetaminophen and ibuprofen 30 tablet 5 LORazepam (Ativan) 1 MG tablet Take 1 tablet by mouth 2 times a day as needed for anxiety. 5 naloxone (Narcan) 4 mg/0.1 mL nasal spray 1. Give 1 spray in nostril for no/slow breathing or cannot wake after opioid use 2. Call 911 3. Repeat in other nostril if symptoms continue 1 each 5 ondansetron ODT (Zofran-ODT) 4 MG disintegrating tablet Dissolve 1 tablet on the tongue every 6 hours as needed for nausea or vomiting. 20 tablet 5 oxyCODONE (Roxicodone) 5 MG immediate release tablet Take 1 tablet by mouth every 6 hours as needed for severe pain. 10 tablet 5 QUEtiapine (SEROquel) 100 MG tablet Take 1 tablet by mouth nightly. 5 documented as of this encounter Plan of Treatment Upcoming Encounters Date Type Department Care Team (Late st Contact Info) Description 06/18/2025 11:45 AM EST Office Visit [facility] [address] [facility]nd [place] [address] Gloria Vail MD 800 [facility] [address] [place] [address] Scheduled Procedures Name Priority Associated Diagnoses Date/Ti me LYMPHADENECTOMY, AXILLARY 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 Author Autogenerat ed Goal Care Plan Autogenerated Problem No Sukumar Trinidad documented as of this encounter Procedures Procedure Name Priority Date/Time Associated Diagnosis Comments NM BONE SCAN WHOLE BODY Routine 04/26/2025 12:00 AM EST Examination documented in this encounter Results * NM Bone Scan Whole Body (04/26/2025 12:00 AM EST) Narrative IMAGING - 04/29/2025 1:51 PM EST This study was performed at an outside facility and has been loaded into the PACS system for reference only. This order has been auto-finalized and does not contain a result. us Imaging Upload Radiant IMG NM PROCEDURES Final R esult IMAGING documented in this encounter Visit Diagnoses Diagnosis Examination Unspecified examination documented in this encounter Additional Health Concerns Active Problems Noted Date Diagnosed Date Autogenerated Problem 11/21/2024 Assessment Noted Time A fall risk assessment has been complete d for the patient 02/20/2025 11:35 AM EDT A Body Mass Index follow-up plan has been documented for the patient 03/14/2025 10:41 PM EST documented as of this encounter Care Teams Guest Experience Manager Relationship Specialty Start [place] [id number] PCP - General 11/20/24 documented as of this encounter
--- OUTSIDE RECORDS SUMMARY | 2025-05-03 12:44 | XMS_ITS | Encounter Summary ---
Author Organization [facility] Address [address] [place] [address] Care Team Providers Care Electronics Research Engineer Name Role Phone Christopher Palacios MD Primary Care Provider [phone] Encounter Details Date Type Department Care Team (Late Contact Info) Description 10/24/2024 Orders Only External Location [address] [place] [address] Provider, External Social History Tobacco Use Types [...] Description 06/18/2025 11:45 AM EST Office [facility] Breast [facility] [address] [facility], 2nd [place] [address] Gloria Vail MD 800 [facility] [address] [place] [address] Scheduled Procedures Name Priority Associated Diagnoses Date/Ti me LYMPHADENECTOMY, AXILLARY Infiltrating ductal carcinoma of left female breast documented as of this encounter Procedures Procedure [...] on filedocumented in this encounter Care Teams Electronics Research Engineer Relationship Specialty Start [place] [id number] PCP - General 11/20/24 documented as of this encounter
--- OUTSIDE RECORDS SUMMARY | 2025-05-03 12:44 | XMS_ITS | Encounter Summary ---
Author Organization [facility] Address [address] [place] [address] Care Team Providers Care Elementary Teacher Name Role Phone Christopher Palacios MD Primary Care Provider [phone] Encounter Details Date Type Department Care Team (Late Contact Info) Description 08/01/2024 Orders Only External Location 800 [place] [address] Provider, External Social History Tobacco Use Types [...] Description 06/18/2025 11:45 AM EST Office Visit [facility] Breast [facility] [address] [facility], [address]nd [place] [address] Gloria Vail MD 800 [facility] [address] [place] [address] Scheduled Procedures Name Priority Associated Diagnoses Date/Ti [...] on filedocumented in this encounter Care Teams Elementary Teacher Relationship Specialty Start [place] [id number] PCP - General 11/20/24 documented as of this encounter
--- OUTSIDE RECORDS SUMMARY | 2025-05-03 12:44 | XMS_ITS | Encounter Summary ---
Author Organization [facility] Address [address] [place] [address] Care Team Providers Care Refrigerating Machine Operator Name Role Phone Christopher Palacios MD Primary Care Provider [phone] Encounter Details Date Type Department Care Team (Late Contact Info) Description 10/24/2024 Orders Only External Location 800 [place] [address] Provider, External Social History Tobacco Use Types [...] Description 06/18/2025 11:45 AM EST Office Visit [facility] Breast [facility] [address] [facility], 2nd [place] [address] Gloria Vail MD 800 [facility] [address] [place] [address] Scheduled Procedures Name Priority Associated Diagnoses Date/Ti [...] on filedocumented in this encounter Care Teams Refrigerating Machine Operator Relationship Specialty Start [place] [id number] PCP - General 11/20/24 documented as of this encounter
--- OUTSIDE RECORDS SUMMARY | 2025-05-03 12:45 | XMS_ITS | Encounter Summary ---
Author Organization [facility] Address [address] [place] [address] Care Team Providers Care Duster Tender Name Role Phone Christopher Palacios MD Primary Care Provider [phone] Encounter Details Date Type Department Care Team (Late Contact Info) Description 07/13/2024 Orders Only External Location 800 [place] [address] Provider, External Social History Tobacco Use Types [...] Description 06/18/2025 11:45 AM EST Office Visit [facility] Breast Care Center [address] [facility], 2nd [place] [address] Gloria Vail MD 800 [facility] [address] [place] [address] Scheduled Procedures Name Priority Associated Diagnoses Date/Ti [...] on filedocumented in this encounter Care Teams Duster Tender Relationship Specialty Start Date End Date Christopher Palacios MD [id number] PCP - General 11/20/24 documented as of this encounter
--- OUTSIDE RECORDS SUMMARY | 2025-05-03 12:45 | XMS_ITS | Encounter Summary ---
Author Organization [facility] Address [address] [place] [address] Care Team Providers Care Sock Lining Examiner Name Role Phone Christopher Palacios MD Primary Care Provider [phone] Encounter Details Date Type Department Care Team (Late Contact Info) Description 10/25/2023 Orders Only External Location [address] [place] [address] Provider, External Social History Tobacco Use Types [...] Description 06/18/2025 11:45 AM EST Office Visit [facility] [address] [facility], [address]nd [place] [address] Gloria Vail MD [address] [facility] [address] [place] [address] Scheduled Procedures Name Priority Associated Diagnoses Date/Ti [...] on filedocumented in this encounter Care Teams Sock Lining Examiner Relationship Specialty Start [place] [id number] PCP - General 11/20/24 documented as of this encounter
--- OUTSIDE RECORDS SUMMARY | 2025-05-03 12:45 | XMS_ITS | Encounter Summary ---
Author Organization [facility] Address [address] [place] [address] Care Team Providers Care Paint Spray Tender Name Role Phone Christopher Palacios MD Primary Care Provider [phone] Encounter Details Date Type Department Care Team (Late Contact Info) Description 11/18/2023 Orders Only External Location [address] [place] [address] Provider, External Social History Tobacco Use Types [...] Description 06/18/2025 11:45 AM EST Office Visit [facility] [address] [facility]nd [place] [address] Gloria Vail MD [address] [facility] [address] [place] [address] Scheduled Procedures Name Priority Associated Diagnoses Date/Ti [...] on filedocumented in this encounter Care Teams Paint Spray Tender Relationship Specialty Start [place] [id number] PCP - General 11/20/24 documented as of this encounter
--- OUTSIDE RECORDS SUMMARY | 2025-05-03 12:45 | XMS_ITS | Encounter Summary ---
Author Organization [facility] Address [address] [place] [address] Care Team Providers Care Manager Nicu Name Role Phone Christopher Palacios MD Primary Care Provider [phone] Encounter Details Date Type Department Care Team (Late Contact Info) Description 10/25/2023 Orders Only External Location [address] [place] [address] Provider, External Social History Tobacco Use Types [...] Description 06/18/2025 11:45 AM EST Office Visit [facility] [address] [facility], [address]nd [place] [address] Gloria Vail MD [address] [facility] [address] [place] [address] Scheduled Procedures Name Priority Associated Diagnoses Date/Ti [...] on filedocumented in this encounter Care Teams Manager Nicu Relationship Specialty [place] [id number] PCP - General 11/20/24 documented as of this encounter
--- OUTSIDE RECORDS SUMMARY | 2025-05-03 12:45 | XMS_ITS | Encounter Summary ---
Author Organization [facility] Address [address] [place] [address] Care Team Providers Care Health And Safety Inspector Name Role Phone Christopher Palacios MD Primary Care Provider [phone] Encounter Details Date Type Department Care Team (Late st Contact Info) Description 08/01/2024 Orders Only External Location [address] [place] [address] Provider, External Social History Tobacco Use Types [...] Description 06/18/2025 11:45 AM EST Office Visit [facility] [address] [facility], [address] [place] [address] Gloria Vail MD [address] [facility] [address] [place] [address] Scheduled Procedures Name Priority Associated Diagnoses Date/Ti [...] on filedocumented in this encounter Care Teams Health And Safety Inspector Relationship Specialty Start [place] [id number] PCP - General 11/20/24 documented as of this encounter
--- OUTSIDE RECORDS SUMMARY | 2025-05-03 12:45 | XMS_ITS | Encounter Summary ---
Author Organization [facility] Address [address] [place] [address] Care Team Providers Care Boom Man Name Role Phone Christopher Palacios MD Primary Care Provider [phone] Encounter Details Date Type Department Care Team (Late Contact Info) Description 10/25/2023 Orders Only External Location [address] [place] [address] Provider, External Social History Tobacco Use Types [...] 11:45 AM EST Office Visit [facility] Breast [facility] [address] [facility]nd [place] [address] Gloria Vail MD [address] [facility] [address] [place] [address] Scheduled Procedures Name Priority Associated Diagnoses Date/Ti [...] on filedocumented in this encounter Care Teams Boom Man Relationship Specialty Start [place] [id number] PCP - General 11/20/24 documented as of this encounter
--- OUTSIDE RECORDS SUMMARY | 2025-05-03 12:45 | XMS_ITS | Encounter Summary ---
Author Organization [facility] Address [address] [place] [address] Care Team Providers Care Cableman Name Role Phone Christopher Palacios MD Primary Care Provider + [phone] Encounter Details Date Type Department Care Team (Late Contact Info) Description 11/03/2023 Orders Only External Location [address] [place] [address] Provider, External Social History Tobacco Use Types [...] 11:45 AM EST Office Visit [facility] Breast [facility] [address] [facility], [address]nd [place] [address] Gloria Vail MD [address] [facility] [address] [place] [address] Scheduled Procedures Name Priority Associated Diagnoses Date/Ti [...] on filedocumented in this encounter Care Teams Cableman Relationship Specialty Start [place] [id number] PCP - General 11/20/24 documented as of this encounter
--- OUTSIDE RECORDS SUMMARY | 2025-05-03 12:45 | XMS_ITS | Encounter Summary ---
Author Organization [facility] Address [address] [place] [id number] Care Team Providers Care Rack Production Worker Name Role Phone Christopher Palacios MD Primary Care Provider + [phone] Reason for Visit * Reason Onset Date Comments Social Work/navigation Follow-up 03/11/2025 Encounter Details Date Type Department Care Team ([facility] st Contact Info) Description 03/11/2025 Telephone [facility] [address] [facility], [address]nd [place] [address] Thalia Chambers, [place] [address] Social Work/navigation Follow-up Social History Tobacco Use [...] on file documented as of this encounter Mental Status * Psych Onc Group Question Answer Entry Date Author Intervention Level 2 03/11/2025 2: 34 PM Thalia Lin LCSW Units (1 unit = 15 minutes) 1 03/11/2025 2:34 PM Thalia Lin LCSW Disease Status Established Patient 03/11/2025 2 :34 PM Thalia Lin LCSW Clinic Location [facility] 03/11/2025 2:34 PM Thalia Lin LCSW Disease Type Breast 03/11/2025 2:34 PM EST Thalia Chambers LCSW Encounter Type Phone Call 03/11/2025 2:34 PM EST Thalia Chambers LCSW Services Provided Resource Navigation 03/11/2025 2:34 PM EST Thalia Chambers LCSW Education Provided Transportation 03/11/2025 2: 34 PM EST Thalia Chambers LCSW documented in this encounter Miscellaneous Notes * Telephone Encounter - Thalia Chambers LCSW - 03/11/2025 2:34 PM EST Encounter Type: Phone Call Disease Status: Established Patient Clinic Location: [facility] Disease Type: Breast Services Provided: Resource Navigation Education Provided: Transportation Intervention Level: 2 Units (1 unit = 15 minutes): 1 Narrative: Patient contacted SW to confirm details of ride previously scheduled for tomorrow 03/12. SW informedof [facility] schedule and tentative cone picker time. Patient thanked SW for the info. SW remains available ongoing. documented in this encounter Plan of Treatment Upcoming Encounters Date Type Department Care Team (Late st Contact Info) Description 06/18/2025 11:45 AM EST Office Visit [facility] [address] [facility] [place] [address] Gloria Vail MD [address] [facility] [address] [place] [address] Scheduled Procedures Name Priority Associated Diagnoses Date/Ti [...] documented as of this encounter Care Teams Rack Production Worker Relationship Specialty Start Date End Date Christopher Palacios MD [id number] PCP - General 11/20/24 documented as of this encounter
--- OUTSIDE RECORDS SUMMARY | 2025-05-03 12:45 | XMS_ITS | Encounter Summary ---
Author Organization [facility] Address [address] [id number] Care Team Providers Care Slp Name Role Phone Christopher Palacios MD Primary Care Provider + [phone] Reason for Visit * Reason Comments Social Work/navigation Follow-up Encounter Details Date Type Department Care Team ([facility] st Contact Info) Description 03/12/2025 Social Work [facility] [address] [facility], [address]nd [place] [address] [place] [address] Social History Tobacco Use Types Packs/Day Years [...] Question Answer Entry Date Author Intervention Level 3 03/12/2025 4: 23 PM Thalia Lin LCSW Units (1 unit = 15 minutes) 2 03/12/2025 4:23 PM Thalia Lin LCSW Disease Status Established Patient 03/12/2025 4 :23 PM Thalia Lin LCSW Clinic Location [facility] 03/12/2025 4:23 PM Thalia Lin LCSW Disease Type Breast 03/12/2025 4:23 PM Thalia Lin LCSW Gift Card Amount 100 03/12/2025 4:23 PM EST Thalia Chambers LCSW Encounter Type In Person Visit 03/12/2025 4:23 PM EST Thalia Chambers LCSW Services Provided Gift / Gas Card 03/12/2025 4:2 3 PM EST Thalia Chambers LCSW Education Provided Transportation 03/12/2025 4: 23 PM EST Thalia Chambers LCSW Gift Card Type [employer] 03/12/2025 4:23 PM EST Thalia Chabmers LCSW documented in this encounter Miscellaneous Notes * Progress Notes - Thalia Chambers LCSW - 03/12/2025 4:23 PM EST Encounter Type: In Person Visit Disease Status: Established Patient Clinic Location: [facility] Disease Type: Breast Services Provided: Gift / [...] contact [facility] upon visit completion for return roller picker. documented in this encounter Plan of Treatment Upcoming Encounters Date Type Department Care Team (Late st Contact Info) Description 06/18/2025 11:45 AM EST Office Visit [facility] [address] [facility]nd [place] [address] Gloria Vail MD [address] [facility] [address] [place] [address] Scheduled Procedures Name Priority Associated [...] documented as of this encounter Care Teams Slp Relationship Specialty Start [place] [id number] PCP - General 11/20/24 documented as of this encounter
--- OUTSIDE RECORDS SUMMARY | 2025-05-03 12:45 | XMS_ITS | Encounter Summary ---
Author Organization [facility] Address [address] [place] [address] Care Team Providers Care Food Service Lead Name Role Phone Christopher Palacios MD Primary Care Provider + [phone] Encounter Details Date Type Department Care Team (Late Contact Info) Description 11/13/2024 Lab Requisition [facility] [address] [place] [address] Vincenzo Garsia MD [address] [facility] Ha[address] [phone] Unspecified lump in the right breast, unspecified [...] 06/18/2025 11:45 AM EST Office Visit [facility] [address] [facility], [address] [place] [address] Gloria Vail MD [address] [facility] Ha[address] Reynoso [address] [address] Scheduled Procedures Name Priority Associated [...] EDT) Case Report Sugical Pathology Consult Case: [id number] Authorizing Provider: Vincenzo Garsia MD Collected: 11/13/20241042 Ordering Location: [facility] Lab Received: 11/13/2024 104 Pathologist: Reyna Denis MD Specimen: Breast, Right, [id number] 12:05 PM EDT [facility] Final Diagnosis OUTSIDE BIOPSY [id number] A-C, 10/24/24, MULTIPLE SITES: A. BREAST, RIGHT RETROAREOLAR 12 O'CLOCK, CORE BIOPSY (A): - STROMAL FIBROSIS WITH CHRONIC INFLAMMATION - NO EVIDENCE OF ATYPICAL HYPERPLASIA OR CARCINOMA A. BREAST, LEFT 12 O'CLOCK, CORE BIOPSY (B): - INVASIVE GRADE 2 DUCTAL CARCINOMA - LARGEST TUMOR SIZE: 9 MM - ANCILLARY TESTING: - ER: positive (>95%, 3+ intensity) - MS: positive (>95%, 3+ intensity) - Her-2/misa: negative (score 0) A. BREAST, LEFT 2 O'CLOCK, CORE BIOPSY (C): - INVASIVE GRADE 1 DUCTAL CARCINOMA - LARGEST TUMOR SIZE: 15 MM - ANCILLARY TESTING: - ER: positive (>95%, 2+ intensity) - MS: positive (80%, 3+ intensity) - Her-2/misa: low (score 1+) 12:05 PM EDT [facility] at 1205 EDT Clinical Information N63.10 - Unspecified lump in the right breast, unspecified quadrant [ICD-10-CM] 12:05 PM EDT [facility] Special and Immunohistochemical Stains The following immunostains were performed at the outside institution and reviewed here: - ER, MS, Her2 for both mass (see above) - e-cadherin (both masses): positive 12:05 PM EDT [facility] Gross Description A. [id number] Received along with a corresponding pathology report from [facility] are 17 slide(s) labeled outside case: [id number] collected on 10/24/2024. 12:05 PM EDT [facility] Note: A resident was involved in the service. I attest I examined the relevant preparations for the specimens and confirmed the diagnosis or interpretation. 12:05 PM EDT [facility] Tissue Right breast structure / Unknown 11/13/2024 10:43 AM EDT 11/13/2024 10:43 AM EDT Vincenzo Garsia MD LAB PATHOLOGY ORDERABLES F inal Result [facility] [address] [place] [address] documented in this encounter Visit Diagnoses Diagnosis Unspecified lump in the right breast, unspecified quadrant documented in this encounter Care Teams Food Service Lead Relationship Specialty Start [place] [id number] PCP - General 11/20/24 documented as of this encounter
--- OUTSIDE RECORDS SUMMARY | 2025-05-03 12:45 | XMS_ITS | Encounter Summary ---
Author Organization [facility] Address [address] [place] [address] Care Team Providers Care Three Dimensional Art Instructor Name Role Phone Christopher Palacios MD Primary Care Provider + [phone] Encounter Details Date Type Department Care Team (Late Contact Info) Description 10/24/2024 Orders Only External Location [address] [place] [address] Provider, External Social History Tobacco Use Types [...] Description 06/18/2025 11:45 AM EST Office Visit [facility] [address] [facility]nd [place] [address] Gloria Vail MD [address] [facility] [address] [place] [address] Scheduled Procedures Name Priority Associated Diagnoses Date/Ti [...] on filedocumented in this encounter Care Teams Three Dimensional Art Instructor Relationship Specialty Start [place] [id number] PCP - General 11/20/24 documented as of this encounter
--- OUTSIDE RECORDS SUMMARY | 2025-05-03 12:45 | XMS_ITS | Clinical Summary ---
Author Organization [facility] Address [address] [place] [address] Care Team Providers Care Junior Staff Accountant Name Role Phone Christopher Palacios MD Primary Care Provider + [phone] Allergies Active Allergy Reactions Criticality Noted Date [...] from 11/20/2024:Stage IB(cT2, cN0, cM0, G2, ER+, NV+, HER2-) - Unsigned Pathologic stage from 01/30/2025:Stage IB(pT2, pN1a(sn), cM0, G2, ER+, NV+, HER2- ) - Unsigned Encounters Date Type Department Care Team Description 05/01/2025 Orders Only [facility] Breast [address] [phone] Gloria Vail MD Infiltrating ductal carcinoma of left female breast (Primary Dx) 04/30/[address] [phone] Gloria Vail MD 04/26/2025 - 04/26/2025 11:59 PM EST Hospital Encounter Image Record Center [address] [place] [phone] Examination Discharge Disposition: Home or Self Care 03/12/2025 11:30 AM EST Office Visit [facility] Breast [address] [address] Gloria Vail MD Infiltrating ductal carcinoma of left female breast (Primary Dx) 03/12/2025 Social Work [facility] Breast [address] [address] Thalia Chambers, TECHNICAL PROGRAM MANAGER 03/12/2025 Orders Only Radiology Virtual Dept. [address] [place] [address] Yeison Ferro MD 03/12/2025 Travel 03/11/2025 Telephone [facility] Breast [address] Thalia Chambers, TECHNICAL PROGRAM MANAGER Social Work/navigation Follow-up 02/20/2025 11:00 AM EDT Office Visit [facility] [place] [address] Kasie Gar PA Infiltrating ductal carcinoma of left female breast (Primary Dx) 02/20/2025 Social Work [facility] Breast [address] Thalia Chambers, TECHNICAL PROGRAM MANAGER 02/20/2025 Travel 02/19/2025 Telephone [facility] [address] [address] Kasie Gar PA 02/15/2025 Telephone [facility] Breast [address] Thalia Chambers, TECHNICAL PROGRAM MANAGER Social Work/navigation Follow-up 02/12/2025 11:30 AM EDT Office Visit [facility] Breast [address] [phone] Gloria Vail MD Infiltrating ductal carcinoma of left female breast (Primary Dx) 02/12/2025 Travel 02/11/2025 Telephone [facility] Breast [address] [phone] Thalia Chambers, TECHNICAL PROGRAM MANAGER Resource Navigation 02/07/2025 Orders Only [facility] Breast [address] [address] Gloria Vail MD from Last 3 Months Family History Medical [...] Description 06/18/2025 11:45 AM EST Office Visit [facility] Breast Care Center [address] [facility], 2nd [place] [address] Gloria Vail MD [address] [facility] [address] [place] [address] Scheduled Procedures Name Priority Associated Diagnoses Date/Ti me LYMPHADENECTOMY, AXILLARY Infiltrating ductal carcinoma of left female breast Health Maintenance Due Date Last Done Comments [facility]-Depression Screening 1965 [facility]-HIV Screening 1965 [facility]-Hepatitis C Screening 1965 [facility]Medicare Annual Wellness (AWV) 1965 [facility]-Infant/Child/Adol SDOH Screenings 1965 [id number] Vaccine (#1) 02/27/1966 [facility]- SDOH Screenings 08/29/1983 [facility]-Adult SDOH Screenings 08/29/1983 [facility]-DTaP,Tdap,and Td Vaccine s [...] BODY Routine 04/26/2025 12:00 AM EST Examination PROTHROMBIN TIME(PT) / INR Routine 03/12/2025 1:53 PM EST Infiltrating ductal carcinoma of left female breast COMPREHENSIVE METABOLIC PANEL, PLASMA Routine 03/12/2025 1:53 PM EST Infiltrating ductal carcinoma of left female breast CBC WITH AUTO DIFFERENTIAL Routine 03/12/2025 1:53 PM EST Infiltrating ductal carcinoma of left female breast from Last 3 Months Results * NM Bone Scan Whole Body (04/26/2025 12:00 AM EST) Narrative IMAGING - 04/29/2025 1:51 PM EST This study was performed at an outside facility and has been loaded into the PACS system for reference only. This order has been auto-finalized and does not contain a result. us Imaging Upload Radiant IMG NM PROCEDURES Final R esult IMAGING * Prothrombin Time/INR (03/12/2025 1:53 PM EST) Prothrombin Time 12.6 12.0 - 14.3 sec LAB COAGULATION METHOD 03/12/2025 2:48 PM EST [facility] INR 0.9 0.9 - 1.1 LAB COAGULATION METHOD 03/12/2025 2:48 PM EST [facility] Blood Venous blood specimen / Unknown Venipuncture / Unknown 03/12/2025 1:53 PM EST 03/12/2025 2:12 PM EST Narrative [facility] - 03/12/2025 2:48 PM EST OPTIMAL INR RANGES FOR PATIENT ON ORAL ANTICOAGULANT THERAPY Prevention of venous thromboembolism INR 2.0 to 3.0 In patients with heart disease: Atrial fibrillation INR 2.0 to 3.0 Valvular heart disease INR 2.0 to 3.0 Tissue heart valves INR 2.0 to 3.0 Mechanical prosthetic valves INR 2.5 to 3.5 Prevention of recurrent VT INR 2.5 to 3.5 us Gloria Vail MD LAB BLOOD ORDERABLES Final Resul t [facility] [address] [place] [address] * (ABNORMAL) CBC and differential (03/12/2025 1:53 PM EST) WBC Count 7.92 3.70 - 10.30 10*3/uL LAB HEMATOLOGY METHOD 03/12/2025 2:47 PM EST [facility] RBC Count 4.42 3.90 - 5.20 10*6/uL LAB HEMATOLOGY METHOD 03/12/2025 2:47 PM EST [facility] HGB 15.1 11.2 - 15.7 g/dL LAB HEMATOLOGY METHOD 03/12/2025 2:47 PM [facility] HCT 45.3(H) 34.0 - 45.0 % LAB HEMATOLOGY METHOD 03/12/2025 2:47 PM [facility] Platelet Count 280 155 - 369 10*3/uL LAB HEMATOLOGY METHOD 03/12/2025 2:47 PM [facility] MCV 103(H) 79 - 98 fL LAB HEMATOLOGY METHOD 03/12/2025 2:47 PM [facility] MCH 34.2(H) 26.0 - 32.0 pg LAB HEMATOLOGY METHOD 03/12/2025 2:47 PM [facility] MCHC 33.3 30.7 - 35.5 g/dL LAB HEMATOLOGY METHOD 03/12/2025 2:47 PM [facility] RDW 12.8 11.5 - 14.5 % LAB HEMATOLOGY METHOD 03/12/2025 2:47 PM [facility] MPV 8.8 8.8 - 12.5 fL LAB HEMATOLOGY METHOD 03/12/2025 2:47 PM [facility] nRBC 0.0 <=0.0 per 100 WBCs LAB HEMATOLOGY METHOD 03/12/2025 2:47 PM [facility] Differential Type Automated LAB HEMATOLOGY METHOD 03/12/2025 2:47 PM [facility] Neutrophils % 50 % LAB HEMATOLOGY METHOD 03/12/2025 2:47 PM [facility] Lymphocytes % 33 % LAB HEMATOLOGY METHOD 03/12/2025 2:47 PM [facility] Monocytes % 9 % LAB HEMATOLOGY METHOD 03/12/2025 2:47 PM [facility] Eosinophils % 6 % LAB HEMATOLOGY METHOD 03/12/2025 2:47 PM [facility] Basophils % 1 % LAB HEMATOLOGY METHOD 03/12/2025 2:47 PM [facility] Immature Granulocytes % 1 % LAB HEMATOLOGY METHOD 03/12/2025 2:47 PM [facility] Neutrophils Absolute 4.05 1.60 - 6.10 10*3/uL LAB HEMATOLOGY METHOD 03/12/2025 2:47 PM [facility] Lymphocytes Absolute 2.63 1.20 - 3.90 10*3/uL LAB HEMATOLOGY METHOD 03/12/2025 2:47 PM EST [facility] Monocytes Absolute 0.67 0.30 - 0.90 10*3/uL LAB HEMATOLOGY METHOD 03/12/2025 2:47 PM EST [facility] Eosinophils Absolute 0.44 0.00 - 0.50 10*3/uL LAB HEMATOLOGY METHOD 03/12/2025 2:47 PM EST [facility] Basophils Absolute 0.09 0.00 - 0.10 10*3/uL LAB HEMATOLOGY METHOD 03/12/2025 2:47 PM EST [facility] Immature Granulocytes Absolute 0.04 0.00 - 0.06 10*3/uL LAB HEMATOLOGY METHOD 03/12/2025 2:47 PM EST [facility] Blood Venous blood specimen / Unknown Venipuncture / Unknown 03/12/2025 1:53 PM EST 03/12/2025 2:39 PM EST Narrative [facility] - 03/12/2025 2:47 PM EST Therapeutic decision making should be based on absolute values, rather than percentages. us Gloria Vail MD LAB BLOOD ORDERABLES Final Resul t [facility] [address] [place] [address] * (ABNORMAL) Comprehensive metabolic panel (03/12/2025 1:53 PM EST) Glucose, Plasma 95 74 - 99 mg/dL 03/12/2025 2:48 PM EST [facility] BUN, Plasma 10 7 - 21 mg/dL 03/12/2025 2:48 PM EST [facility] Creatinine, Plasma 0.51(L) 0.60 - 1.10 mg/dL 03/12/2025 2:48 PM EST [facility] BUN/Creatinine Ratio 20 03/12/2025 2:48 PM EST [facility] Sodium, Plasma 138 136 - 145 mmol/L 03/12/2025 2:48 PM EST [facility] Potassium, Plasma 4.0 3.6 - 4.9 mmol/L 03/12/2025 2:48 PM EST [facility] Chloride, Plasma 103 97 - 107 mmol/L 03/12/2025 2:48 PM EST [facility] CO2, Plasma 23 22 - 29 mmol/L 03/12/2025 2:48 PM EST [facility] Anion Gap 12 6 - 16 mmol/L 03/12/2025 2:48 PM EST [facility] Total Calcium, Plasma 9.4 8.9 - 10.2 mg/dL 03/12/2025 2:48 PM EST [facility] Total Protein 8.3(H) 6.3 - 7.9 g/dL 03/12/2025 2:48 PM EST [facility] Albumin, Plasma 4.5 3.5 - 5.2 g/dL 03/12/2025 2:48 PM EST [facility] AST, Plasma 23 10 - 35 U/L 03/12/2025 2:48 PM EST [facility] ALT, Plasma 20 10 - 35 U/L 03/12/2025 2:48 PM EST [facility] Alkaline Phosphatase, Plasma 129 46 - 142 U/L 03/12/2025 2:48 PM EST [facility] Total Bilirubin, Plasma 0.6 0.2 - 1.1 mg/dL 03/12/2025 2:48 PM EST [facility] eGFRcr 107.7 mL/min/1.7 3m*2 03/12/2025 2:48 PM EST [facility] Comment:Reported eGFRcr in m L/min/1.73m2 is based the CKD-EPI 2020 equation that does not use a race coefficient. Blood Venous blood specimen / Unknown Venipuncture / Unknown 03/12/2025 1:53 PM EST 03/12/2025 2:13 PM EST us Gloria Vail MD LAB BLOOD ORDERABLES Final Resul t [facility] [address] [place] [address] from Last 3 Months Additional Health Concerns Active Problems Noted Date Diagnosed Date Autogenerated Problem 11/21/2024 Insurance (Bruno) [address] [place] [address] [facility] MEDICARE Advance Directives * Full Code (Latest Code Status on File) Date Activated Date Inactivated Comments 01/30/2025 2:18 PM 01/31/2025 4:54 PM Question Answer Comments I have reviewed the capacity from the link above and, if needed, have updated to appropriate status: Yes Care Teams Junior Staff Accountant Relationship Specialty Start Date End Date Christopher Palacios MD [id number] PCP - General 11/20/24
--- OUTSIDE RECORDS SUMMARY | 2025-05-03 12:45 | XMS_ITS | Encounter Summary ---
Author Organization [facility] Address [address] [place] [address] Care Team Providers Care Campus Security Officer Name Role Phone Christopher Palacios MD Primary Care Provider + [phone] Encounter Details Date Type Department Care Team (Late Contact Info) Description 12/01/2023 Orders Only External Location [address] [place] [address] Provider, External Social History Tobacco Use Types [...] Description 06/18/2025 11:45 AM EST Office Visit [facility] Breast Care Center [address] [facility], [address] [place] [address] Gloria Vail MD [address] [facility] [address] [place] [address] Scheduled Procedures Name Priority Associated Diagnoses Date/Ti [...] on filedocumented in this encounter Care Teams Campus Security Officer Relationship Specialty [place] [id number] PCP - General 11/20/24 documented as of this encounter
--- OUTSIDE RECORDS SUMMARY | 2025-05-03 12:45 | XMS_ITS | Encounter Summary ---
Author Organization [facility] Address [address] [place] [address] Care Team Providers Care Electro Optical Engineer Name Role Phone Christopher Palacios MD Primary Care Provider [phone] Encounter Details Date Type Department Care Team ([facility] Contact Info) Description 03/12/2025 Orders Only Ch Radiology Virtual Dept. [address] [place] [phone] Yeison Ferro MD [address] [place] [phone] Social History Tobacco Use Types Packs/Day Years [...] Department Care Team (Late Contact Info) Description 06/18/2025 11:45 AM EST Office Visit [facility] Breast Care Center [address] [facility], [address]nd [place] [phone] Gloria Vail MD [address] [facility] [address] [phone] Scheduled Procedures Name Priority Associated Diagnoses Date/Ti me LYMPHADENECTOMY, AXILLARY 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 Author Autogenerat ed Goal Care Plan Autogenerated Problem No Amos Sukumar Rojas documented as of this encounter Visit Diagnoses [...] documented as of this encounter Care Teams Electro Optical Engineer Relationship Specialty [place] [id number] PCP - General 11/20/24 documented as of this encounter
--- OUTSIDE RECORDS SUMMARY | 2025-05-03 12:45 | XMS_ITS | Encounter Summary ---
Author Organization [facility] Address [address] [place] [address] Care Team Providers Care Riveter Automobile Brakes Name Role Phone Christopher Palacios MD Primary Care Provider + [phone] Encounter Details Date Type Department Care Team (Late st Contact Info) Description 04/30/2025 Telephone [facility] Breast [facility] [address] [facility], [address]nd [place] [address] Gloria Vail MD [address] [facility] [address] [place] [address] Social History Tobacco Use Types Packs/Day Years [...] encounter Miscellaneous Notes * Telephone Encounter - Gloria Vail MD - 04/30/2025 2:16 PM EST Images from the original note were not included. I called Jennifer Jara to discuss her upcoming surgery. She is agreeable to rescheduling after the holidays, but does not want to have her ALND on [place]. Will reschedule, but I warned her this will probably take place in June. She is on AI, tolerating fine. Dr. Gloria Vail MD Railroad Car Repairman of Surgical Oncology [facility] documented in this encounter Plan of Treatment Upcoming Encounters Date Type Department Care Team (Late st Contact Info) Description 06/18/2025 11:45 AM EST Office Visit [facility] Breast Care Center [address] [facility], [address] [place] [address] Gloria Vail MD [address] [facility] [place] [facility] [address] [place] [address] Scheduled Procedures Name Priority Associated [...] documented as of this encounter Care Teams Riveter Automobile Brakes Relationship Specialty [place] [id number] PCP - General 11/20/24 documented as of this encounter
--- OUTSIDE RECORDS SUMMARY | 2025-05-03 12:45 | XMS_ITS | Encounter Summary ---
Author Organization [facility] Address [address] [place] [address] Care Team Providers Care Leadite Heater Name Role Phone Christopher Palacios MD Primary Care Provider [phone] Encounter Details Date Type Department Care Team (Late Contact Info) Description 10/24/2024 Orders Only External Location [address] [place] [address] Provider, External Social History Tobacco Use Types [...] 11:45 AM EST Office Visit [facility] Breast Care Center [address] [facility], [address] [place] [address] Gloria Vail MD [address] [facility] [address] [place] [address] Scheduled Procedures Name Priority Associated Diagnoses Date/Ti [...] on filedocumented in this encounter Care Teams Leadite Heater Relationship Specialty [place] [id number] PCP - General 11/20/24 documented as of this encounter
--- OUTSIDE RECORDS SUMMARY | 2025-05-03 12:45 | XMS_ITS | Encounter Summary ---
Author Organization [facility] Address [address] [place] [address] Care Team Providers Care Engineering Equipment Operator Name Role Phone Christopher Palacios MD Primary Care Provider + [phone] Encounter Details Date Type Department Care Team [...] on file documented as of this encounter Functional Status * Communicable Disease Screening Question Answer Date of Assessment Author Have you been in contact with someone who was sick? No / Unsure 03/12/2025 11:19 AM Anna Tamayo Do you have any of the following new or worsening symptoms? None of these 03/12/2025 11:19 AM EST Raven Carbone * Travel Screening Question Answer Date of Assessment Author Have you traveled intern[place] or domestically in the last month? No 03/12/2025 11:19 AM EST Anna Red documented as of this encounter Mental Status * Communicable Disease Screening Question Answer Entry Date Author Have you been in contact with someone who was sick? No / Unsure 03/12/2025 11:19 AM EST Anna Carbone Do you have any of the following new or worsening symptoms? None of these 03/12/2025 11:19 AM EST Raven Carbone * Travel Screening Question Answer Entry Date Author Have you traveled intern[place] or domestically in the last month? No 03/12/2025 11:19 AM EST Anna Red documented in this encounter Plan of Treatment Upcoming Encounters Date Type Department Care Team (Late st Contact Info) Description 06/18/2025 11:45 AM EST Office Visit [facility] Breast Care Center [address] [facility], [address]nd [place] [address] Gloria Vail MD [address] [facility] Hailey Reynoso [facility] [address] [place] [address] Scheduled Procedures Name Priority Associated [...] documented as of this encounter Care Teams Engineering Equipment Operator Relationship Specialty [place] [id number] PCP - General 11/20/24 documented as of this encounter
--- OUTSIDE RECORDS SUMMARY | 2025-05-03 12:45 | XMS_ITS | Encounter Summary ---
Author Organization [facility] Address [address] [place] [address] Care Team Providers Care Client Advocate Name Role Phone Christopher Palacios MD Primary Care Provider [phone] Encounter Details Date Type Department Care Team (Late Contact Info) Description 10/25/2023 Orders Only External Location [address] [place] [address] Provider, External Social History Tobacco Use Types [...] [facility] Breast Care Center [address] [facility], [address]nd [place] [address] Gloria Vail MD [address] [facility] [address] [place] [address] Scheduled Procedures Name Priority Associated Diagnoses Date/Ti [...] on filedocumented in this encounter Care Teams Client Advocate Relationship Specialty Start [place] [id number] PCP - General 11/20/24 documented as of this encounter
--- OUTSIDE RECORDS SUMMARY | 2025-05-03 12:45 | XMS_ITS | Encounter Summary ---
Author Organization [facility] Address [address] [place] [address] Care Team Providers Care Stemhole Borer Name Role Phone Christopher Palacios MD Primary Care Provider [phone] Encounter Details Date Type Department Care Team (Late st Contact Info) Description 08/01/2024 Orders Only External Location [address] [place] [address] Provider, External Social History Tobacco Use Types [...] Description 06/18/2025 11:45 AM EST Office Visit [facility] Breast Care Center [address] [facility], [address] [place] [address] Gloria Vail MD [address] [facility] [address] [place] [address] Scheduled Procedures Name Priority Associated Diagnoses Date/Ti [...] on filedocumented in this encounter Care Teams Stemhole Borer Relationship Specialty Start [place] [id number] PCP - General 11/20/24 documented as of this encounter
--- OUTSIDE RECORDS SUMMARY | 2025-05-03 12:45 | XMS_ITS | Encounter Summary ---
Author Organization [facility] Address [address] [place] [id number] Care Team Providers Care Benefit Authorizer Name Role Phone Christopher Palacios MD Primary Care Provider [phone] Encounter Details Date Type Department Care Team (Late Contact Info) Description 05/01/2025 Orders Only [facility] Breast Care Center [address] [facility], [address]nd [place] [address] Glorai Vail MD [address] [facility] [address] Reyn[address] [address] Infiltrating ductal carcinoma of left female [...] Description 06/18/2025 11:45 AM EST Office Visit [facility] Breast Care Center [address] [facility], [address] [place] [address] Gloria Vail MD [address] [facility] Haliey Reynoso [address] [address] Scheduled Procedures Name Priority Associated Diagnoses Date/Ti me LYMPHADENECTOMY, AXILLARY 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 Author Autogenerat ed Goal Care Plan Autogenerated Problem No Amos Sukumar Rojas documented as of this encounter Visit Diagnoses Diagnosis Infiltrating ductal [...] documented as of this encounter Care Teams Benefit Authorizer Relationship Specialty Start [place] [id number] PCP - General 11/20/24 documented as of this encounter
--- NOTE | 2025-05-03 12:47 | CT_ITS ---
FINAL REPORT CLINICAL HISTORY: INFILTRATING DUCTAL CARCINOMA FINDINGS: CT ABDOMEN AND PELVIS WITH CONTRAST TECHNIQUE: IV contrast enhanced exam COMPARISON: None. FINDINGS: ABDOMEN: Solid organs are unremarkable. Gallbladder is normal. No adenopathy or ascites is present. Visualized bowel is normal. PELVIS: Appendix is normal. Uterus and ovaries are normal. No pelvic mass or adenopathy is present. There is a severe compression fracture of L1 with retropulsion of bone resulting in canal stenosis. This is probably a benign compression fracture. There is a lucent lesion of the left L4 vertebral body. This is probably hemangioma based on fat within the lesion. IMPRESSION: 1. No evidence of extraosseous metastatic disease 2. Severe compression fracture L1 favor benign with a chronic appearance This study was performed using automated techniques to achieve radiation exposure as low as reasonably achievable Authenticated and ERN
--- NOTE | 2025-05-03 12:53 | CT_ITS ---
FINAL REPORT CLINICAL HISTORY: INFILTRATING DUCTAL CARCINOMA FINDINGS: CT CHEST with contrast COMPARISON: None . TECHNIQUE: Axial CT with IV contrast administration. FINDINGS: No acute lung disease is present . No suspicious pulmonary nodule is present. Surgical changes of bilateral mastectomy and left axillary lymph node dissection are present. No pleural or pericardial effusion is seen . A few borderline enlarged mediastinal lymph nodes are present. The largest is 14 x 10 mm AP window lymph node. This is strongly favored to be benign reactive. No hilar adenopathy or axillary adenopathy is present. IMPRESSION: 1. No evidence of intrathoracic metastatic disease This study was performed using automated techniques to achieve radiation exposure as low as reasonably achievable Authenticated and ERN
[2025-05-03] MEDS: IOPAMIDOL-370 (76%);100ML BOTTLE 75 ML IV (13:38)
[2025-05-03] MEDS: SODIUM CHLORIDE 0.9% 10ML SYR (RAD ONLY) 10 ML IV (13:38)
== END 2025-05-03 23:59 | disposition home or self-care (01) ==
PROVIDERS: PCP Family Medicine; Visit Provider Student in an Organized Health Care Education/Training Program
DX: C50.912 Malignant neoplasm of unspecified site of left female breast (principal); S32.010A Wedge compression fracture of first lumbar vertebra, initial encounter for closed fracture
CPT/HCPCS: 71260; 74177; Q9967